=== PATIENT | female | born 1945 | race Caucasian/White ===

== ENCOUNTER 2016-05-29 18:41 | Emergency (ER) | payer MEDICARE, MEDICAID ==
[~2016-05-29] VITALS: Ht 172.7 cm; Wt 77.1 kg
[~2016-05-29 18:41] MED LIST: A THRU Z SELEC1 EAC6 PO; ACYCLOVIR400 MG PO; ACYCLOVIR800 MG PO; ALAVERT10 M1 PO; AMOXICILLIN500 M2 PO; AMOXICILLIN500 MG PO; AMOXICILLIN875 MG PO; ARTHRITIS PAIN650 MG PO; ASPI-COR81 M1 PO; ASPIR-TRIN325 MG PO; ASPIRIN81 M1 PO; ATIVAN0.5 MG PO; ATORVASTATIN CA10 M1 PO; AUGMENTIN 875875 MG PO; AYR NASAL GEL22 M1 NAS; BACTRIM; BACTRIM 400 MG-1 TAB PO; CARVEDILOL6.25 MG PO; CIPRO250 MG PO; CIPRO500 MG PO; CLARITIN10 MG PO; COMBIVENT1 ARO IH; COREG12.5 MG PO; COREG6.25 MG PO; Carafate1 GM PO; Ciprofloxacin500 MG PO; DILTIAZEM CD240 MG PO; DILTIAZEM ER240 MG PO; FEROSUL325 MG PO; FERROUS SULFAT325 M1 PO; FLEXERIL10 MG PO; FLONASE 0.05% 121 EA NAS; FLUCONAZOLE100 MG PO; FUROSEMIDE40 MG PO; GABAPENTIN100 M2 PO; HEALTHY EYES; HYDR12.5C PO; HYDROCHLOROTHIAZIDE; INHALER; IRON; IRON325 M1 PO; IRON325 M2 PO; KRISTALOSE20 GM/PACK PO; LACTULOSE10 GM/151 PO; LACTULOSE20 GM/30 M PO; LASIX40 MG PO; LEVAQUIN250 M1 PO; LEVAQUIN500 M1 IV; LEVOFLOXACIN500 MG PO; LIPITOR10 MG PO; LISINOPRIL10 M1 PO; LISINOPRIL10 MG PO; LISINOPRIL40 MG PO; LISINOPRIL5 MG PO; LORATADINE; MACROBID100 M1 PO; MAG-OX 400400 MG PO; MAGNESIUM400 MG PO; MAGOX 400400 MG PO; MEDROL32 MG PO; METFORMIN ER500 MG PO; METFORMIN1000 MG PO; METFORMIN500 MG PO; MIRALAX POWDER17 G1 PO; MIRALAX17 GM PO; MIRALAX17 GM/DOSE PO; MONTELUKAST SOD10 MG PO; MULTIVITAMIN1 TA1 PO; Magnesium Oxid400 MG PO; NITROFURANTOIN100 M9 PO; OMEPRAZOLE D/R20 MG PO; OMEPRAZOLE20 M1 PO; OMEPRAZOLE40 MG PO; ONDANSETRON4 MG SL; ONGLYZA2.5 MG PO; PHENERGAN W/DM120 ML PO; PHENERGAN25 MG R; POLYETHYLENE; POLYETHYLENE GL1 P16 PO; POTASSIUM; PRAVACHOL40 MG PO; PREDNISONE20 MG PO; PROTONIX TR40 MG PO; PYRIDIUM100 MG PO; QUALITY CHOICE10 M3 PO; RANITIDINE HCL150 M1 PO; RITE AID BRANDS1 TA4 PO; ROBITUSSIN AC 110 ML PO; SENNA PLUS 50 M1 TA1 PO; SENNA-PLUS 50 M1 TA1 PO; SENNA8.6 MG PO; SIMVASTATIN40 MG PO; SINGULAIR10 M1 PO; SINGULAIR10 MG PO; SYMBICORT1 AE1 INH; Synthroid,Lev125 MCG PO; THE MEDICINE SH10 M1 PO; TRAD5TAB1 PO; VIBRAMYCIN100 MG PO; VITAMIN D-32000 UNIT PO; VITAMIN D2400 IU PO; VITAMIN D32000 IU PO; ZANTAC150 MG PO; ZESTRIL40 MG PO; ZITHROMAX Z PA250 MG PO; ZOFRAN ODT4 MG SL; ZOFRAN4 MG PO; ZYVOX600 MG PO; Zofran4 MG PO; [UNRECOGNIZED DRUG - CODE] SC; [UNRECOGNIZED DRUG - REMARK]
[2016-05-29] MEDS ORDERED: LEVOTHYROXIN0.125 M1 PO (18:51)
[2016-05-29 19:17] LABS: BASO % 0.4 % (0.0-1.0); EOS % 0.4 % (1.0-4.0); HEMATOCRIT 36.9 % (37.0-47.0); HEMOGLOBIN 12.5 g/dl (12.0-16.0); LYMPH # 1.2 10*3/uL (1.3-4.4); LYMPH % 22.2 % (27.0-41.0); MEAN CORPUSCULAR HGB 31.2 pg (27.0-31.0); MEAN CORPUSCULAR HGB CONC 33.9 g/dl (33.0-37.0); MEAN PLATELET VOLUME 9.4 fl (9.6-12.3); MONO # 0.6 10*3/uL (0.1-1.0); MONO % 11.3 % (3.0-9.0); NEUT # 3.4 10*3/uL (2.3-7.9); NEUT % 65.3 % (47.0-73.0); PLATELET COUNT AUTOMATED 116 10*3/uL (130-400); RED BLOOD COUNT 4.01 10*6/uL (4.10-5.10); RED CELL DISTRI WIDTH 12.5 % (0-14.5); WHITE BLOOD COUNT 5.2 10*3/uL (4.8-10.8)
[2016-05-29 19:32] LABS: ALBUMIN 3.6 gm/dl (3.1-4.5); BILIRUBIN, TOTAL 0.5 mg/dl (0.2-1.0); POTASSIUM 4.2 mmol/L (3.5-5.1); TOTAL PROTEIN 8.1 gm/dL (6.4-8.2)
== END 2016-05-29 19:45 | disposition home or self-care (01) ==
LOC: ED 18:41
PROVIDERS: Registered Nurse
DX: E11.65 Type 2 diabetes mellitus with hyperglycemia (principal); E11.22 Type 2 diabetes mellitus with diabetic chronic kidney disease; N18.6 End stage renal disease; Z99.2 Dependence on renal dialysis; Z88.4 Allergy status to anesthetic agent; Z79.899 Other long term (current) drug therapy; Z90.49 Acquired absence of other specified parts of digestive tract; Z79.4 Long term (current) use of insulin

== ENCOUNTER 2016-06-17 13:30 | Emergency (ER) | payer MEDICARE, MEDICAID ==
[~2016-06-17] VITALS: Ht 175.2 cm; Wt 88.5 kg
[~2016-06-17 13:30] MED LIST changes: +LEVOTHYROXIN0.125 M1 PO
[2016-06-17 14:07] LABS: BASO % 0.8 % (0.0-1.0); HEMATOCRIT 34.3 % (37.0-47.0); HEMOGLOBIN 11.6 g/dl (12.0-16.0); LYMPH # 1.2 10*3/uL (1.3-4.4); LYMPH % 31.4 % (27.0-41.0); MEAN CELL VOLUME 93.2 fl (81.0-99.0); MEAN CORPUSCULAR HGB 31.5 pg (27.0-31.0); MEAN CORPUSCULAR HGB CONC 33.8 g/dl (33.0-37.0); MEAN PLATELET VOLUME 9.2 fl (9.6-12.3); MONO # 0.4 10*3/uL (0.1-1.0); MONO % 11.3 % (3.0-9.0); NEUT # 2.1 10*3/uL (2.3-7.9); NEUT % 54.7 % (47.0-73.0); PLATELET COUNT AUTOMATED 119 10*3/uL (130-400); RED BLOOD COUNT 3.68 10*6/uL (4.10-5.10); RED CELL DISTRI WIDTH 12.7 % (0-14.5); WHITE BLOOD COUNT 3.9 10*3/uL (4.8-10.8)
[2016-06-17 14:24] LABS: ALBUMIN 3.2 gm/dl (3.1-4.5); BILIRUBIN, TOTAL 0.4 mg/dl (0.2-1.0); POTASSIUM 3.4 mmol/L (3.5-5.1); TOTAL PROTEIN 7.8 gm/dL (6.4-8.2)
[2016-06-17] MEDS ORDERED: MECLIZINE HCL25 M2 PO (14:32)
== END 2016-06-17 14:35 | disposition home or self-care (01) ==
LOC: ED 13:30
PROVIDERS: Nurse Practitioner Family
DX: S00.412A Abrasion of left ear, initial encounter (principal); R42 Dizziness and giddiness; R03.0 Elevated blood-pressure reading, without diagnosis of hypertension; E03.9 Hypothyroidism, unspecified; E78.5 Hyperlipidemia, unspecified; I12.0 Hypertensive chronic kidney disease with stage 5 chronic kidney disease or end stage renal disease; N18.6 End stage renal disease; Z99.2 Dependence on renal dialysis; E11.65 Type 2 diabetes mellitus with hyperglycemia; J44.9 Chronic obstructive pulmonary disease, unspecified; I50.9 Heart failure, unspecified; F41.9 Anxiety disorder, unspecified; M19.90 Unspecified osteoarthritis, unspecified site; Z90.49 Acquired absence of other specified parts of digestive tract; Z88.4 Allergy status to anesthetic agent; Z79.899 Other long term (current) drug therapy; X58.XXXA Exposure to other specified factors, initial encounter; Y93.89 Activity, other specified; Y92.9 Unspecified place or not applicable; Y99.9 Unspecified external cause status

== ENCOUNTER → 2016-06-20 | Outpatient (CLI) | payer MEDICARE, MEDICAID ==
[~2016-06-20] MED LIST changes: +MECLIZINE HCL25 M2 PO
== END | disposition home or self-care (01) ==
LOC: CARD 12:24
DX: I95.9 Hypotension, unspecified (principal)

== ENCOUNTER 2016-06-28 18:11 | Emergency (ER) | payer MEDICARE, MEDICAID ==
[~2016-06-28] VITALS: Wt 88.5 kg
== END 2016-06-28 19:34 | disposition home or self-care (01) ==
LOC: ED 18:11
DX: J43.9 Emphysema, unspecified (principal); I12.0 Hypertensive chronic kidney disease with stage 5 chronic kidney disease or end stage renal disease; N18.6 End stage renal disease; F41.9 Anxiety disorder, unspecified; M19.90 Unspecified osteoarthritis, unspecified site; I50.9 Heart failure, unspecified; K21.9 Gastro-esophageal reflux disease without esophagitis; E78.5 Hyperlipidemia, unspecified; E11.65 Type 2 diabetes mellitus with hyperglycemia; Z98.49 Cataract extraction status, unspecified eye; Z99.2 Dependence on renal dialysis; Z90.49 Acquired absence of other specified parts of digestive tract; Z79.899 Other long term (current) drug therapy; Z88.4 Allergy status to anesthetic agent

== ENCOUNTER 2016-06-30 15:47 | Inpatient (IN) | payer MEDICARE, MEDICAID ==
[~2016-06-30] VITALS: Ht 170.1 cm; Wt 90.0 kg
--- NOTE | ~2016-06-30 | CON ---
[place], [place] REPORT OF CONSULTATION NAME: RANDY MCBRIDE UNIT #: [id number] ROOM: 501 DOCTOR: STACY MADDOX MD BIRTHDATE: [birth year] DOS: 07/01/2016 NEPHROLOGY CONSULTATION REASON FOR CONSULTATION: Management of dialysis/patient known to you. HISTORY OF PRESENT ILLNESS: The patient is a 70-year-old female. She has a past medical history of end-stage renal disease. She is on dialysis Sunday, Sunday and Sunday 4 hours through left upper extremity AV fistula at the [facility] under the care of our practice of [facility]. She has a history of hypertension, diabetes as well. It seems she was admitted to the hospital for a COPD exacerbation. She has been started on therapy, appears to be stable. She actually was hoping she can go home. She was not requiring oxygen. Denies shortness of breath, chest pain, nausea or vomiting presently. It seems she did have her treatment yesterday on dialysis. She did not have any major complaints to me, but was somewhat of a poor historian. Apparently, she has been having issues with cough and chest congestion and running nose with weakness and shortness of breath prior to her admission to the hospital. ALLERGIES: Listed to general anesthetics. MEDICATIONS: Include Senokot, Neurontin, levothyroxine, Levaquin, insulin, albuterol nebs. PAST MEDICAL HISTORY: 1. End-stage renal disease, on hemodialysis. 2. Left upper extremity AV fistula. 3. Chronic obstructive pulmonary disease. 4. Anxiety. 5. Osteoarthritis. 6. Chronic back pain. 7. Bronchitis. 8. CHF. 9. Anemia. 10. Diabetes. 11. GERD. 12. Hypertension. 13. Cataracts extraction. 14. Cholecystectomy. FAMILY HISTORY: Negative for chronic kidney disease, Otherwise, noncontributory. SOCIAL HISTORY: No current tobacco, alcohol or illicit drugs. REVIEW OF SYSTEMS: As per HPI, otherwise a 10-point review of systems was reviewed and was negative. PHYSICAL EXAMINATION: [place], [place] REPORT OF CONSULTATION NAME: RANDY MCBRIDE UNIT #: [id number] ROOM: 501 DOCTOR: STACY MADDOX MD BIRTHDATE: [birth year] VITAL SIGNS: Temperature 98, pulse 97, respirations 18, blood pressure 100/46. GENERAL: She is awake, alert, resting comfortably, in no apparent distress. HEENT: Shows no JVD. Sclerae are anicteric. Mucous membranes are moist. Pharynx is clear. NECK: Supple. Trachea is midline. There is no neck lymphadenopathy. There is no thyromegaly. LUNGS: Diminished breath sounds, non-appreciated wheeze. There is no tactile fremitus. She is not using accessory muscles of respiration. HEART: Normal S1, S2. No rub, thrill or gallop. ABDOMEN: Soft and nontender. There is no organomegaly or rigidity. There is no rebound or guarding. There is no CVA tenderness. EXTREMITIES: Had no edema. There is no lower extremity lymphadenopathy. Distal pulses are 2+. SKIN: Showed no overt rash. There is no petechia or purpura. Skin temperature is warm. NEUROLOGIC: She is awake, alert. She is following commands. Cranial nerves intact. LABORATORY DATA: Hemoglobin 10.3, white count of 4.7, platelet count of 117. Sodium 138, potassium 3.6, CO2 of 32, calcium 8.6. Phosphorus 3.5, magnesium 1.6, albumin 3.0, BUN 20, creatinine 4.4. IMPRESSION: 1. End-stage renal disease, on hemodialysis Sunday, Sunday and Sunday for 4 hours through left upper extremity AV fistula. 2. Dyspnea with apparent chronic pulmonary disease exacerbation. 3. Anemia of chronic disease. 4. History of diabetes mellitus. 5. GERD. 6. Mild thrombocytopenia. 7. Chronic pain. PLAN: 1. We will continue dialysis as per her normal schedule. 2. Dose medications for end-stage renal disease. 3. We will give as needed, erythropoietin stimulating agents with dialysis. 4. Discontinue IV fluids. 5. Await plans per the primary service. Thanks for this consultation. We will follow with you. [place], [place] REPORT OF CONSULTATION NAME: RANDY MCBRIDE UNIT #: [id number] ROOM: [facility] DOCTOR: STACY MADDOX MD BIRTHDATE: [birth year] STACY MADDOX MD CM:CONSTR:REPORT OF CONSULTATION 1504 07/02/16 1315 interface
--- NOTE | ~2016-06-30 | PR ---
[place], [place] PROGRESS NOTE NAME: RANDY MCBRIDE UNIT #: [id number] ROOM: 501 DOCTOR: STACY MADDOX MD BIRTHDATE: [birth year] DOS: 07/02/2016 NEPHROLOGY FOLLOWUP NOTE SUBJECTIVE: The patient is resting comfortably. She is in no acute distress. She remains on IV fluids. No events were reported. PHYSICAL EXAMINATION: VITAL SIGNS: Showed temperature 98.5, pulse 79, respiratory rate 20, blood pressure 118/54. HEENT: Shows no JVD. LUNGS: Diminished breath sounds. HEART: Normal S1, S2. EXTREMITIES: Showed no edema. SKIN: Showed no rash. LABORATORY DATA: From July 01, she did have lactic acid that was noted to be 4.0. Hemoglobin 10.3, white count of 4.7, and platelets of 117. These labs were from . ASSESSMENT AND PLAN: 1. End-stage renal disease on hemodialysis Sunday, Sunday and Sunday for 4 hours through her left upper extremity AV fistula. The patient will have dialysis tomorrow as per schedule. 2. Would discontinue IV fluids. 3. Dyspnea with chronic obstructive pulmonary disease exacerbation. Continue care. 4. Mild lactic acidosis, would recheck this. 5. Anemia of chronic disease. We will give as needed erythropoietin stimulating agents with dialysis. 6. Mild thrombocytopenia. Continue to follow trends. 7. Diabetes mellitus. Continue insulin. STACY MADDOX MD CM:PNTRANS [id number] STACY MADDOX MD 07/03/16 0358 interface
--- NOTE | ~2016-06-30 | PR ---
[place], [place] PROGRESS NOTE NAME: RANDY MCBRIDE UNIT #: [id number] ROOM: 501 DOCTOR: DARCY GAMA MD BIRTHDATE: [birth year] DOS: SUBJECTIVE: The patient has been admitted to hospital with history of cough, chest congestion, runny nose and having difficulty in breathing and shortness of breath with some nausea. She is feeling much better today, she has few wheezing in the lungs, but her cough and congestion is much better than before and she is not feeling nauseated. No vomiting and eating very satisfactorily. Her lactic acid is 4, which is better than 4.9 of yesterday. Troponin level is normal. OBJECTIVE: VITAL SIGNS: Her blood pressure 118/43, pulse is 73, respirations 18, temperature 98.3. HEART: Regular. CHEST: Having few wheezing. No crepitation. ABDOMEN: Soft. Rest of examination is fairly good. DARCY GAMA MD CM:PNTRANS [id number] DARCY GAMA MD 07/02/16 2000 interface
--- NOTE | ~2016-06-30 | EKG ---
[place], [place] ELECTROCARDIOGRAM REPORT NAME: RANDY MCBRIDE UNIT #: [id number] ROOM: [facility] DOCTOR: ELANA KIMBROUGH MD BIRTHDATE: [birth year] DOS: 06/30/2016 DATE: 06/30/2016 TIME: 22:01. RATE AND RHYTHM: Sinus tachycardia at 100 beats per minute. AR interval 172 milliseconds, QRS duration 84 milliseconds, corrected QT interval 466 milliseconds, QRS axis 42. IMPRESSION: 1. Sinus tachycardia. 2. Low voltage in precordial leads and Q-wave is greater than 30 milliseconds in V2-V5, possible old anterior myocardial infarction. ADDENDUM Her R-wave progression was poor and we are going to check when her echo was done to look at the left ventricular function. The patient has end-stage renal disease and is on hemodialysis. ELANA KIMBROUGH MD CM:EKGRPT:ELECTROCARDIOGRAM REPORT [id number] ELANA KIMBROUGH MD
--- NOTE | ~2016-06-30 | WRIGHTHP ---
[place], [place] PATIENT HISTORY AND PHYSICAL EXAM [id number] UNIT #: [id number] ROOM: [facility] DOCTOR: DARCY GAMA MD BIRTHDATE: [birth year] DOS: 07/01/2016 HISTORY OF PRESENT ILLNESS: The patient who has been admitted to hospital yesterday evening with history of cough, chest congestion, runny nose and she was feeling also nauseated, weak and shortness of breath and she came to Emergency Department where on investigation was found to be having acute exacerbation of COPD with emphysema and needed to be admitted to the hospital. PAST MEDICAL HISTORY: The patient has a history of COPD with end-stage renal failure, history of anxiety, arthritis, back pain, recurring bronchitis, candidiasis of the mouth and esophagus, congestive heart failure, chronic anemia, past history of chronic kidney disease end-stage number 4, diabetes mellitus, dysphagia, edema of the lower limb and elevated blood pressure and GERD syndrome. ALLERGIES: THE PATIENT IS ALLERGIC TO ANESTHESIA. SOCIAL HISTORY: She does not drink, does not smoke, does not use any street drugs. SURGICAL HISTORY: The patient has surgical history of removing cataracts and cholecystectomy. FAMILY HISTORY: Mother of congestive heart failure. Father, the patient does not know the real problem, maybe he had chronic obstructive pulmonary disease. There is history of cancer, diabetes and coronary artery disease in the family. PHYSICAL EXAMINATION: GENERAL: The patient is conscious, alert and oriented. VITAL SIGNS: Her blood pressure 114/62, pulse 93, respirations 20, temperature 97.3, 5 feet 9 inches tall, weighing 195 pounds. HEENT: Having some congestion of nose and throat. Ears are normal. Trachea is center. NECK: Veins are not distended. HEART: Regular. No murmur or thrills. LUNGS: Showing few bilateral wheezing with increased expiration with few crepitation. ABDOMEN: Soft. Liver and spleen not palpable. No area of tenderness. No mass palpable. IMAGING STUDIES: Electrocardiogram showed normal sinus rhythm, low voltage EKG, poor R-wave progression. Chest x-ray showed normal chest x-ray, no pneumonic infiltration was seen, no change from the previous x-ray. LABORATORY DATA: CBC shows white count 6000, hemoglobin 12.3, hematocrit 36.4. Protime is 10.7. Lactic acid is 2.9, slightly higher than normal. Comprehensive metabolic profile showed glucose 250, BUN 11, creatinine 3.7, GFR 15, chloride 95, CO2 33, total protein 8.8, alkaline phosphatase 135. C-reactive protein 1.19 and myoglobin is 337. CK-MB and troponin levels are [place], [place] PATIENT HISTORY AND PHYSICAL EXAM NAME: RANDY MCBRIDE UNIT #: [id number] ROOM: [facility] DOCTOR: DARCY GAMA MD BIRTHDATE: [birth year] normal. Repeat troponin level is normal. Lactic acid today her base level is 3, which is high. DIAGNOSES: Acute exacerbation of chronic obstructive pulmonary disease with emphysema with difficulty in breathing, lactic acidosis, end-stage renal failure, hypothyroidism, chronic anemia, diabetes mellitus, hyperlipidemia, hypertension, GERD syndrome, and anxiety. PLAN OF TREATMENT: The patient will be admitted to the hospital. She will continue taking her home medication, receive aerosol treatment with albuterol every 4 hours and Zofran 4 mg IV p.r.n., levofloxacin every 8 hours, Bacliff 1 tablet q.6 hours p.r.n. DARCY GAMA MD CM:HISPHYS:PATIENT HISTORY AND PHYSICAL EXAMINATION 8 DARCY GAMA MD 07/01/1640 interface
[2016-06-30 16:17] VITALS: BP 119/57
[2016-06-30 16:57] LABS: BASO % 0.3 % (0.0-1.0); EOS % 0.3 % (1.0-4.0); HEMATOCRIT 36.4 % (37.0-47.0); HEMOGLOBIN 12.3 g/dl (12.0-16.0); IG # 0.1 10*3/uL (0.0-0.1); LYMPH # 0.7 10*3/uL (1.3-4.4); LYMPH % 11.9 % (27.0-41.0); MEAN CELL VOLUME 93.1 fl (81.0-99.0); MEAN CORPUSCULAR HGB 31.5 pg (27.0-31.0); MEAN CORPUSCULAR HGB CONC 33.8 g/dl (33.0-37.0); MEAN PLATELET VOLUME 8.5 fl (9.6-12.3); MONO # 0.6 10*3/uL (0.1-1.0); MONO % 9.5 % (3.0-9.0); NEUT # 4.6 10*3/uL (2.3-7.9); NEUT % 77.2 % (47.0-73.0); PLATELET COUNT AUTOMATED 133 10*3/uL (130-400); RED BLOOD COUNT 3.91 10*6/uL (4.10-5.10); RED CELL DISTRI WIDTH 13.8 % (0-14.5)
[2016-06-30 17:09] LABS: PROTHROMBIN TIME 10.7 SECONDS (9.0-12.4)
[2016-06-30 17:15] LABS: ALBUMIN 3.8 gm/dl (3.1-4.5); ALKALINE PHOSPHATASE 135 U/L (45-117); BILIRUBIN, TOTAL 0.7 mg/dl (0.2-1.0); BUN 11 mg/dl (7-24); C-REACTIVE PROTEIN 1.19 MG/DL (0-0.3); CARBON DIOXIDE 33 mmol/L (21-32); CHLORIDE 95 mmol/L (98-107); CKMB < 0.5 ng/ml (0.5-3.6); CPK 20 U/L (26-192); EST GLOM FILT AFRICAN AMERICAN 18 ml/min; GLUCOSE 250 mg/dL (65-99); MAGNESIUM 1.6 mg/dL (1.5-2.1); SGOT/AST 30 IU/L (3-35); SGPT/ALT 31 U/L (12-78); SODIUM 138 mmol/L (136-145); TOTAL PROTEIN 8.8 gm/dL (6.4-8.2); TROPONIN I < 0.015 ng/ml (<0.045)
[2016-06-30 18:54] LABS: LA>2 REFLEX 2 HR DRAW NOW
[2016-06-30 19:00] VITALS: BP 123/54
[2016-06-30 19:19] LABS: LA>2 RFLX FOLLOW UP AT 2 HRS 3.9 mmol/L (0.4-2.0)
[2016-06-30 20:00] VITALS: BP 118/75; BP 188/75
[2016-06-30 20:04] VITALS: BP 98/53
[2016-06-30 20:07] VITALS: BP 98/48
[2016-06-30 21:02] LABS: LA>2 REFLEX 4 HR DRAW NOW
[2016-07-01] VITALS: BP 114/62
[2016-07-01 06:43] LABS: BASO % 0.2 % (0.0-1.0); EOS % 0.4 % (1.0-4.0); HEMATOCRIT 31.2 % (37.0-47.0); HEMOGLOBIN 10.3 g/dl (12.0-16.0); LYMPH # 0.9 10*3/uL (1.3-4.4); LYMPH % 19.9 % (27.0-41.0); MEAN CELL VOLUME 95.4 fl (81.0-99.0); MEAN CORPUSCULAR HGB 31.5 pg (27.0-31.0); MEAN PLATELET VOLUME 8.9 fl (9.6-12.3); MONO # 0.7 10*3/uL (0.1-1.0); MONO % 13.9 % (3.0-9.0); NEUT % 64.7 % (47.0-73.0); PLATELET COUNT AUTOMATED 117 10*3/uL (130-400); RED BLOOD COUNT 3.27 10*6/uL (4.10-5.10); RED CELL DISTRI WIDTH 13.9 % (0-14.5); WHITE BLOOD COUNT 4.7 10*3/uL (4.8-10.8)
[2016-07-01 06:44] LABS: BILIRUBIN, TOTAL 0.5 mg/dl (0.2-1.0); MAGNESIUM 1.6 mg/dL (1.5-2.1); PHOSPHOROUS 3.5 mg/dL (2.5-4.9); POTASSIUM 3.6 mmol/L (3.5-5.1); TOTAL PROTEIN 7.2 gm/dL (6.4-8.2)
[2016-07-01 08:00] VITALS: BP 98/60
[2016-07-01 09:05] LABS: LA>2 REFLEX 2 HR DRAW NOW
[2016-07-01 09:20] LABS: LA>2 RFLX FOLLOW UP AT 2 HRS 4.9 mmol/L (0.4-2.0)
[2016-07-01 11:14] LABS: LA>2 REFLEX 4 HR DRAW NOW
[2016-07-01 12:00] VITALS: BP 100/46
[2016-07-01 16:00] VITALS: BP 130/50
[2016-07-01 20:00] VITALS: BP 113/44
[2016-07-02] VITALS: BP 128/44
[2016-07-02 08:00] VITALS: BP 118/43
[2016-07-02 12:00] VITALS: BP 119/54
[2016-07-02 16:00] VITALS: BP 120/51
[2016-07-02 20:00] VITALS: BP 116/71
[2016-07-02 20:58] LABS: BILIRUBIN NEGATIVE (NEGATIVE); BLOOD 1+ (NEGATIVE); CLARITY SL CLOUDY (CLEAR); COLOR YELLOW (YELLOW); GLUCOSE NEGATIVE (NEGATIVE); KETONE NEGATIVE (NEGATIVE); LEUKO ESTERASE 3+ (NEGATIVE); NITRITE NEGATIVE (NEGATIVE); PH 5.5 (5.0-9.0); PROTEIN 2+ (NEGATIVE); SPECIFIC GRAVITY <= 1.005 (1.005-1.030); UROBILINOGEN 0.2 E.U./dl (0.2-1.0)
[2016-07-02 21:06] LABS: BACTERIA 4+; URINE REFLEX COMMENT YES (NO)
[2016-07-03] VITALS: BP 109/41
[2016-07-03 08:00] VITALS: BP 111/40
[2016-07-03 12:00] VITALS: BP 126/54
[2016-07-03 20:00] VITALS: BP 148/61
[2016-07-04] VITALS: BP 112/59
[2016-07-04 08:00] VITALS: BP 110/52
[2016-07-04 12:00] VITALS: BP 126/50
[2016-07-04] MEDS ORDERED: LEVAQUIN500 M2 PO (13:00)
[2016-07-04] MEDS ORDERED: PROVENTIL0.09 MG/A1 INH (13:01)
[2016-07-04] MEDS ORDERED: PREDNISONE10 MG PO (13:01)
== END 2016-07-04 14:08 | disposition home or self-care (01) | DRG 871 ==
LOC: ED 15:47 → 5E 17:50 → EDHOLD 17:50 → 5E 19:14
PROVIDERS: Hospitalist; Nurse Practitioner Family
PROC: 5A1D00Z (ICD-10-PCS; principal; 2016-07-03)
DX: A41.9 Sepsis, unspecified organism (principal); J18.9 Pneumonia, unspecified organism; N18.6 End stage renal disease; I13.0 Hypertensive heart and chronic kidney disease with heart failure and stage 1 through stage 4 chronic kidney disease, or unspecified chronic kidney disease; I50.9 Heart failure, unspecified; E11.22 Type 2 diabetes mellitus with diabetic chronic kidney disease; D69.6 Thrombocytopenia, unspecified; J44.1 Chronic obstructive pulmonary disease with (acute) exacerbation; J44.0 Chronic obstructive pulmonary disease with (acute) lower respiratory infection; R65.20 Severe sepsis without septic shock; F41.9 Anxiety disorder, unspecified; M19.90 Unspecified osteoarthritis, unspecified site; K59.00 Constipation, unspecified; D63.8 Anemia in other chronic diseases classified elsewhere; G89.29 Other chronic pain; E03.9 Hypothyroidism, unspecified; E78.5 Hyperlipidemia, unspecified; K21.9 Gastro-esophageal reflux disease without esophagitis; Z88.8 Allergy status to other drugs, medicaments and biological substances; Z99.2 Dependence on renal dialysis; Z90.49 Acquired absence of other specified parts of digestive tract; Z79.899 Other long term (current) drug therapy; Z82.49 Family history of ischemic heart disease and other diseases of the circulatory system; Z80.8 Family history of malignant neoplasm of other organs or systems; Z83.3 Family history of diabetes mellitus; Z82.5 Family history of asthma and other chronic lower respiratory diseases

== ENCOUNTER → 2016-07-13 | Outpatient (CLI) | payer MEDICARE, MEDICAID ==
[~2016-07-13] MED LIST changes: +LEVAQUIN500 M2 PO; +Ondansetron4 MG PO; +PREDNISONE10 MG PO; +PROVENTIL0.09 MG/A1 INH
== END | disposition home or self-care (01) ==
LOC: RAD 10:07
DX: M25.862 Other specified joint disorders, left knee (principal)

== ENCOUNTER 2016-07-16 16:10 | Emergency (ER) | payer MEDICARE, MEDICAID ==
[~2016-07-16] VITALS: Ht 170.1 cm; Wt 88.5 kg
[~2016-07-16 16:10] MED LIST changes: -Ondansetron4 MG PO
[2016-07-16] MEDS ORDERED: SINGULAIR10 M1 PO (16:21)
[2016-07-16] MEDS ORDERED: Ondansetron4 MG PO (16:21)
== END 2016-07-16 17:06 | disposition home or self-care (01) ==
LOC: ED 16:10
DX: E11.65 Type 2 diabetes mellitus with hyperglycemia (principal); Z88.4 Allergy status to anesthetic agent; Z90.49 Acquired absence of other specified parts of digestive tract; Z79.899 Other long term (current) drug therapy

== ENCOUNTER 2016-07-28 14:19 | Emergency (ER) | payer MEDICARE, MEDICAID ==
[~2016-07-28] VITALS: Wt 88.5 kg
[~2016-07-28 14:19] MED LIST changes: +Ondansetron4 MG PO
[2016-07-28 15:07] LABS: BASO % 0.1 % (0.0-1.0); EOS # 0.1 10*3/uL (0.0-0.4); EOS % 0.6 % (1.0-4.0); HEMATOCRIT 35.3 % (37.0-47.0); IG # 0.1 10*3/uL (0.0-0.1); LYMPH % 11.5 % (27.0-41.0); MEAN CELL VOLUME 93.9 fl (81.0-99.0); MEAN CORPUSCULAR HGB 31.9 pg (27.0-31.0); MEAN PLATELET VOLUME 8.9 fl (9.6-12.3); MONO # 0.7 10*3/uL (0.1-1.0); MONO % 8.1 % (3.0-9.0); NEUT # 6.6 10*3/uL (2.3-7.9); NEUT % 78.6 % (47.0-73.0); PLATELET COUNT AUTOMATED 154 10*3/uL (130-400); RED BLOOD COUNT 3.76 10*6/uL (4.10-5.10); RED CELL DISTRI WIDTH 14.2 % (0-14.5); WHITE BLOOD COUNT 8.4 10*3/uL (4.8-10.8)
[2016-07-28 15:22] LABS: ALBUMIN 3.6 gm/dl (3.1-4.5); ALKALINE PHOSPHATASE 139 U/L (45-117); BUN 9 mg/dl (7-24); CARBON DIOXIDE 32 mmol/L (21-32); CHLORIDE 92 mmol/L (98-107); EST GLOM FILT AFRICAN AMERICAN 18 ml/min; GLUCOSE 173 mg/dL (65-99); POTASSIUM 4.2 mmol/L (3.5-5.1); SGOT/AST 40 IU/L (3-35); SODIUM 137 mmol/L (136-145); TOTAL PROTEIN 8.7 gm/dL (6.4-8.2)
[2016-07-28 15:23] LABS: PROTHROMBIN TIME 10.6 SECONDS (9.0-12.4)
[2016-07-28 15:27] LABS: SGPT/ALT 37 U/L (12-78); TROPONIN I < 0.015 ng/ml (<0.045)
[2016-07-28] MEDS ORDERED: ZOFRAN4 MG PO (15:59)
[2016-07-28 17:04] LABS: LA>2 REFLEX 2 HR DRAW NOW
== END 2016-07-28 16:02 | disposition home or self-care (01) ==
LOC: ED 14:19
PROVIDERS: Nurse Practitioner Family
DX: I13.0 Hypertensive heart and chronic kidney disease with heart failure and stage 1 through stage 4 chronic kidney disease, or unspecified chronic kidney disease (principal); N18.4 Chronic kidney disease, stage 4 (severe); I50.20 Unspecified systolic (congestive) heart failure; R11.0 Nausea; M19.90 Unspecified osteoarthritis, unspecified site; J44.9 Chronic obstructive pulmonary disease, unspecified; K21.9 Gastro-esophageal reflux disease without esophagitis; E78.5 Hyperlipidemia, unspecified; E03.9 Hypothyroidism, unspecified; Z99.2 Dependence on renal dialysis; Z90.49 Acquired absence of other specified parts of digestive tract; Z79.899 Other long term (current) drug therapy; Z88.4 Allergy status to anesthetic agent

== ENCOUNTER 2016-08-18 19:53 | Emergency (ER) | payer MEDICARE, MEDICAID ==
[~2016-08-18] VITALS: Ht 170.1 cm; Wt 86.2 kg
== END 2016-08-18 20:26 | disposition home or self-care (01) ==
LOC: ED 19:53
DX: Z48.00 Encounter for change or removal of nonsurgical wound dressing (principal); N18.6 End stage renal disease; Z90.49 Acquired absence of other specified parts of digestive tract; Z98.890 Other specified postprocedural states; Z79.899 Other long term (current) drug therapy; Z88.4 Allergy status to anesthetic agent; Z99.2 Dependence on renal dialysis

== ENCOUNTER 2016-10-08 23:50 | Inpatient (IN) | payer MEDICARE, MEDICAID ==
[~2016-10-08] VITALS: Ht 170.1 cm; Wt 91.8 kg
--- NOTE | ~2016-10-08 | PR ---
[place], [place] PROGRESS NOTE NAME: RANDY MCBRIDE UNIT #: [id number] ROOM: 407 DOCTOR: SLOAN GATICA MD BIRTHDATE: [birth year] DOS: 10/09/2016 SUBJECTIVE: The patient is very well known to me. The patient was seen by Dr. Li who was covering for me yesterday. Cardiac status appears to be stable. OBJECTIVE: VITAL SIGNS: Blood pressure is 120/60. HEENT: Unremarkable. REVIEW OF SYSTEMS: Six to eight systems reviewed. LUNGS: Diminished air entry. HEART: Sounds are regular. ABDOMEN: Soft. NEUROLOGIC: Stable. LABORATORY DATA: Hemoglobin 11.4, hematocrit 33.9. Cardiac enzymes have been negative. IMPRESSION: The patient with atherosclerotic heart disease with renal failure and dialysis. PLAN: Continue the present care. We will try to get an echocardiogram if it is not done in 6 months. Monitor the heart rate and blood pressure very closely. Continue the medical management as ordered and we will follow up. EKG is normal. SLOAN GATICA MD CM:PNVENKAT [id number] SLOAN GATICA MD 10/10/16 0956 interface
--- NOTE | ~2016-10-08 | CON ---
[place], [place] REPORT OF CONSULTATION [id number] UNIT #: [id number] ROOM: 407 DOCTOR: RAMAN SALOMON MD BIRTHDATE: [birth year] DOS: 10/09/2016 HISTORY OF PRESENT ILLNESS: This is a 70-year-old -[place] woman with a history of essential hypertension, hypothyroidism, end-stage renal disease and has been undergoing peritoneal dialysis for the last couple of years. She has had low blood pressure at that time as well, chronic anemia and has never had a heart attack. She had an echocardiogram a couple of times last year, which demonstrated normal LV systolic function and no obvious valvular abnormalities. She was admitted to the hospital through the Emergency Department because of an episode of chest pain that was over the anterolateral aspect of the right side of the chest. It was sharp, but went away within a minute or so. After hospital admission, she underwent hemodialysis when she had these sharp pains again located over the right shoulder area that went to the lateral side of the chest, again lasting for a few seconds to a minute or two. She had no anterior chest pressure or heaviness. There was accompanied sweating, nausea or breathing difficulty. She did not have any loss of consciousness, no swelling in the legs. She has had no orthopnea. She does not smoke nor does she drink alcoholic beverages. HOME MEDICATIONS: Include Proventil HFA, Symbicort, gabapentin 100 b.i.d., loratadine 10 mg daily, Singulair 10 mg daily, Zofran 4 mg p.r.n. and some Senokot. PHYSICAL EXAMINATION: GENERAL: The patient is moderately obese, very pleasant, alert lady. Her complexion appears fine and there is no thyromegaly or finger clubbing. VITAL SIGNS: Pulse is regular at 84 beats per minute, blood pressure 129/43. NECK: JVP is normal. AJR is negative. There is no carotid bruit. HEART: There is no cardiomegaly. Cardiac auscultation revealed no murmurs or rubs. EXTREMITIES: She had no edema at all in the lower extremities. CHEST: Clear to percussion and auscultation with good breath sounds. ABDOMEN: Not examined. LABORATORY DATA: An ECG showed normal sinus rhythm and a normal pattern. Troponin levels were less than 0.05. IMPRESSION: This patient had very atypical myocardial ischemia. This is most likely a muscular pain and no further workup is necessary. From cardiac standpoint, she may be discharged home. The patient normally sees Dr. Singh with whom she will follow up as necessary. [place], [place] REPORT OF CONSULTATION NAME: RANDY MCBRIDE UNIT #: [id number] ROOM: 407 DOCTOR: RAMAN SALOMON MD BIRTHDATE: [birth year] RAMAN SALOMON MD CM:CONSTR:REPORT OF CONSULTATION 1659 10/09/16 2257 interface SLOAN SINGH MD
--- NOTE | ~2016-10-08 | DS ---
[place], [place] DISCHARGE SUMMARY NAME: RANDY MCBRIDE UNIT #: [id number] ROOM: 407 DOCTOR: DARCY GAMA MD BIRTHDATE: [birth year] DOS: 10/10/2016 The patient was admitted to the hospital on 10/09/2016 with chest pain. This chest pain is not related to her heart. It is not cardiac in origin. HOSPITAL COURSE: The patient has been seen by Dr. Li of Cardiology, and his opinion is that there is no evidence of any heart problem and the patient can be discharged home. There were no changes in the EKG and there was no evidence of an elevated troponin or CK-MB level and the patient will continue getting her home medications that she was taking before. There are no new medications. She will continue taking dialysis and she will be followed up in the office next week. For details, please refer to history and physical examination and consultation per Dr. Li. DARCY GAMA MD CM:ADALBERTO [id number] DARCY GAMA MD 10/10/16 1108 interface
--- NOTE | ~2016-10-08 | EKG ---
[place], [place] ELECTROCARDIOGRAM REPORT NAME: RANDY MCBRIDE UNIT #: [id number] ROOM: 407 DOCTOR: RAMAN SALOMON MD BIRTHDATE: [birth year] DOS: 10/09/2016 TIME: 1756 hours. Normal sinus rhythm at 94 beats per minute. Low voltage ECG. No previous tracing is available for comparison. RAMAN SALOMON MD CM:EKGRPT:ELECTROCARDIOGRAM REPORT [id number] 1857 RAMAN SALOMON MD
--- NOTE | ~2016-10-08 | WRIGHTHP ---
[place], [place] PATIENT HISTORY AND PHYSICAL EXAM NAME: RANDY MCBRIDE [facility] #: [id number] UNIT #: [id number] ROOM: 407 DOCTOR: DARCY GAMA MD BIRTHDATE: [birth year] DOS: 10/09/2016 HISTORY OF PRESENT ILLNESS: The patient has been admitted to the hospital with the chest pain, which she started having at home. No difficulty breathing, no nausea, no vomiting, no diaphoresis. She came to the Emergency Department from where she is admitted to hospital. At present, the patient is denying any chest pain. The patient is having a history of ASHD, congestive heart failure, chronic anemia, chronic hypotension, chronic renal failure, chronic sinusitis; chronic kidney failure, on dialysis; constipation, COPD, diabetes mellitus. PAST MEDICAL HISTORY: The patient has history of congestive heart failure, chronic anemia, chronic hypotension, chronic renal failure, chronic sinusitis; end-stage renal disease, on hemodialysis; ASHD, hypertension, hyperglycemia, hypothyroidism. PAST SURGICAL HISTORY: She has a history of cataract surgery, cholecystectomy and fistula placement. SOCIAL HISTORY: The patient does not drink, does not smoke. FAMILY HISTORY: Her mother is diseased, cause congestive heart failure. Father is of COPD, history of cancer, diabetes, coronary heart disease in the family. PHYSICAL EXAMINATION: GENERAL: The patient is conscious, alert and oriented, does not appear in any distress. VITAL SIGNS: She is 5 feet 7 inches tall, weighing 200 pounds, body mass is 31.8, blood pressure is 124/53, pulse 80, respirations 20, temperature 98.1. HEENT: Her ENT examination unremarkable. No glandular enlargement. NECK: Trachea is center. Neck veins are not distended. HEART: Regular, no murmur or thrills. LUNGS: Clear. No creps or rhonchi. ABDOMEN: Soft. Liver and spleen not palpable. No area of tenderness. No mass palpable. NEUROLOGIC: No neurological deficit observed. LABORATORY DATA: CBC showed white count 6900, hemoglobin 11.4, hematocrit 33.9 indicating chronic anemia of renal disease. Comprehensive metabolic profile showed sugar 150, BUN 31, creatinine 6.41, GFR 6 indicating chronic renal disease. Sodium is 129, chloride is 91, calcium 8.1, alkaline phosphatase 141. Troponin level is less than 0.015, that is normal. DIAGNOSIS: Chest pain, to see if she has got any evidence of myocardial infarction with chronic anemia and with atherosclerotic heart disease, hypertension, history of congestive heart failure, end-stage renal failure, on dialysis; hypothyroidism, diabetes mellitus, gastroesophageal reflux disease syndrome and osteoarthritis. PLAN OF TREATMENT: We will do serial EKG and isoenzymes to see if there is any [place], [place] PATIENT HISTORY AND PHYSICAL EXAM [id number] UNIT #: [id number] ROOM: [facility] DOCTOR: DARCY GAMA MD BIRTHDATE: [birth year] evidence of myocardial infarction and the patient will continue doing her hemodialysis as suggested by the car distributor and she will continue taking her medication as before. DARCY GAMA MD CM:HISPHYS:PATIENT HISTORY AND PHYSICAL EXAMINATION 1200 [id number] DARCY GAMA MD 10/09/16 1529 interface
--- NOTE | ~2016-10-08 | EKG ---
[place], [place] ELECTROCARDIOGRAM REPORT NAME: RANDY MCBRIDE UNIT #: [id number] ROOM: 407 DOCTOR: RAMAN SALOMON MD BIRTHDATE: [birth year] DOS: 10/09/2016 TIME: 0033 hours. Normal sinus rhythm at 85 beats per minute. Low voltage ECG. No evidence of ischemia or infraction. No previous tracing is available for comparison. RAMAN SALOMON MD CM:EKGRPT:ELECTROCARDIOGRAM REPORT 1812 47 RAMAN SALOMON MD
[2016-10-08 23:57] VITALS: BP 143/63
[2016-10-09] VITALS (8 sets, daily range): BP systolic 123–139; BP diastolic 43–54
[2016-10-09 00:25] LABS: BASO % 0.4 % (0.0-1.0); EOS # 0.1 10*3/uL (0.0-0.4); EOS % 0.9 % (1.0-4.0); HEMATOCRIT 33.9 % (37.0-47.0); HEMOGLOBIN 11.4 g/dl (12.0-16.0); LYMPH # 1.3 10*3/uL (1.3-4.4); MEAN CELL VOLUME 93.6 fl (81.0-99.0); MEAN CORPUSCULAR HGB 31.5 pg (27.0-31.0); MEAN CORPUSCULAR HGB CONC 33.6 g/dl (33.0-37.0); MEAN PLATELET VOLUME 9.1 fl (9.6-12.3); MONO # 0.5 10*3/uL (0.1-1.0); MONO % 7.6 % (3.0-9.0); NEUT % 72.4 % (47.0-73.0); PLATELET COUNT AUTOMATED 102 10*3/uL (130-400); RED BLOOD COUNT 3.62 10*6/uL (4.10-5.10); WHITE BLOOD COUNT 6.9 10*3/uL (4.8-10.8)
[2016-10-09 00:49] LABS: ALBUMIN 3.1 gm/dl (3.1-4.5); ALKALINE PHOSPHATASE 141 U/L (45-117); BUN 31 mg/dl (7-24); CHLORIDE 91 mmol/L (98-107); CREATININE 6.41 mg/dL (0.55-1.02); MAGNESIUM 1.8 mg/dL (1.5-2.1); POTASSIUM 3.7 mmol/L (3.5-5.1); SGOT/AST 23 IU/L (3-35); SGPT/ALT 20 U/L (12-78); SODIUM 129 mmol/L (136-145); TOTAL PROTEIN 7.3 gm/dL (6.4-8.2)
[2016-10-09 00:50] LABS: TROPONIN I < 0.015 ng/ml (<0.045)
[2016-10-09 00:52] LABS: ACT PARTIAL THROMBO TIME 27.9 SECONDS (20.8-31.5)
[2016-10-09 06:33] LABS: CKMB < 0.5 ng/ml (0.5-3.6); CPK 30 U/L (26-192); LDH 237 U/L (84-246); TROPONIN I < 0.015 ng/ml (<0.045)
[2016-10-09 12:09] LABS: CPK 23 U/L (26-192); LDH 212 U/L (84-246)
[2016-10-09 12:16] LABS: CKMB < 0.5 ng/ml (0.5-3.6); TROPONIN I < 0.015 ng/ml (<0.045)
[2016-10-10] VITALS: BP 122/53
[2016-10-10 08:00] VITALS: BP 109/70
== END 2016-10-10 10:13 | disposition home or self-care (01) | DRG 313 ==
LOC: ED 23:50 → 4E 10-09 01:01 → EDHOLD 10-09 01:01 → 4E 10-09 01:15
PROVIDERS: Student in an Organized Health Care Education/Training Program; ADMIT Internal Medicine
PROC: 5A1D00Z (ICD-10-PCS; principal; 2016-10-09)
DX: R07.89 Other chest pain (principal); I25.10 Atherosclerotic heart disease of native coronary artery without angina pectoris; I13.2 Hypertensive heart and chronic kidney disease with heart failure and with stage 5 chronic kidney disease, or end stage renal disease; I95.89 Other hypotension; N18.6 End stage renal disease; F41.9 Anxiety disorder, unspecified; M19.90 Unspecified osteoarthritis, unspecified site; I50.9 Heart failure, unspecified; D64.9 Anemia, unspecified; J32.9 Chronic sinusitis, unspecified; J44.9 Chronic obstructive pulmonary disease, unspecified; E11.22 Type 2 diabetes mellitus with diabetic chronic kidney disease; K21.9 Gastro-esophageal reflux disease without esophagitis; E78.5 Hyperlipidemia, unspecified; E03.9 Hypothyroidism, unspecified; I25.9 Chronic ischemic heart disease, unspecified; Z99.2 Dependence on renal dialysis; Z88.4 Allergy status to anesthetic agent; Z90.49 Acquired absence of other specified parts of digestive tract; Z98.49 Cataract extraction status, unspecified eye; Z82.49 Family history of ischemic heart disease and other diseases of the circulatory system; Z80.9 Family history of malignant neoplasm, unspecified; Z83.3 Family history of diabetes mellitus; Z82.5 Family history of asthma and other chronic lower respiratory diseases; Z87.01 Personal history of pneumonia (recurrent)

== ENCOUNTER 2016-10-27 17:38 | Emergency (ER) | payer MEDICARE, MEDICAID ==
[~2016-10-27] VITALS: Ht 167.6 cm; Wt 88.0 kg
[2016-10-27 18:38] LABS: BASO % 0.3 % (0.0-1.0); EOS # 0.1 10*3/uL (0.0-0.4); EOS % 0.6 % (1.0-4.0); HEMATOCRIT 36.5 % (37.0-47.0); HEMOGLOBIN 12.4 g/dl (12.0-16.0); LYMPH # 1.1 10*3/uL (1.3-4.4); LYMPH % 12.1 % (27.0-41.0); MEAN CELL VOLUME 92.4 fl (81.0-99.0); MEAN CORPUSCULAR HGB 31.4 pg (27.0-31.0); MEAN PLATELET VOLUME 8.7 fl (9.6-12.3); MONO # 0.6 10*3/uL (0.1-1.0); MONO % 7.3 % (3.0-9.0); NEUT # 6.9 10*3/uL (2.3-7.9); NEUT % 79.2 % (47.0-73.0); PLATELET COUNT AUTOMATED 115 10*3/uL (130-400); RED BLOOD COUNT 3.95 10*6/uL (4.10-5.10); RED CELL DISTRI WIDTH 14.1 % (0-14.5); WHITE BLOOD COUNT 8.7 10*3/uL (4.8-10.8)
[2016-10-27 18:47] LABS: ACT PARTIAL THROMBO TIME 30.1 SECONDS (20.8-31.5)
[2016-10-27 18:53] LABS: ALBUMIN 3.3 gm/dl (3.1-4.5); ALKALINE PHOSPHATASE 152 U/L (45-117); BUN 12 mg/dl (7-24); CHLORIDE 93 mmol/L (98-107); CPK 17 U/L (26-192); CREATININE 3.61 mg/dL (0.55-1.02); LIPASE 274 U/L (73-393); POTASSIUM 3.5 mmol/L (3.5-5.1); SGOT/AST 28 IU/L (3-35); SGPT/ALT 26 U/L (12-78); SODIUM 132 mmol/L (136-145); TOTAL PROTEIN 8.2 gm/dL (6.4-8.2)
[2016-10-27 18:55] LABS: CKMB < 0.5 ng/ml (0.5-3.6)
[2016-10-27 18:56] LABS: TROPONIN I < 0.015 ng/ml (<0.045)
== END 2016-10-27 21:31 | disposition home or self-care (01) ==
LOC: ED 17:38
PROVIDERS: Emergency Medicine
DX: E11.65 Type 2 diabetes mellitus with hyperglycemia (principal); K21.9 Gastro-esophageal reflux disease without esophagitis; E03.9 Hypothyroidism, unspecified; M19.90 Unspecified osteoarthritis, unspecified site; I13.2 Hypertensive heart and chronic kidney disease with heart failure and with stage 5 chronic kidney disease, or end stage renal disease; E11.22 Type 2 diabetes mellitus with diabetic chronic kidney disease; N18.6 End stage renal disease; I50.9 Heart failure, unspecified; Z88.4 Allergy status to anesthetic agent; Z79.899 Other long term (current) drug therapy; Z90.49 Acquired absence of other specified parts of digestive tract

== ENCOUNTER 2016-11-27 07:00 | Inpatient (IN) | payer MEDICARE, MEDICAID ==
[~2016-11-27] VITALS: Ht 175.2 cm; Wt 90.7 kg
--- NOTE | ~2016-11-27 | PR ---
[place], [place] PROGRESS NOTE [id number] #: [id number] ROOM: 503 DOCTOR: JAMES HADDAD MD BIRTHDATE: [birth year] DOS: SUBJECTIVE: The patient is doing fine without any complaints. She still has a cough, but her nausea and emesis seem to have subsided and she was able to eat some breakfast this morning. OBJECTIVE: VITAL SIGNS: Graphic trend shows blood pressure 109/48, pulse of 86, respirations 20, temperature 98.7. LUNGS: Clear. HEART: Regular. ABDOMEN: Obese, soft. EXTREMITIES: Without any edema. DIAGNOSTIC STUDIES: CT of the chest shows an airspace density in the left upper lobe and the right upper lobe, suggesting bilateral pneumonia with small right-sided pleural effusion. ASSESSMENT AND PLAN: 1. The patient who presents with high-grade fever, cough, elevated white cell count, most likely from underlying bilateral pneumonia with effusion. The patient is on IV antibiotics. 2. End-stage renal failure, on dialysis. Appreciate Dr. Ruby's input. 3. Type 2 diabetes mellitus. Blood sugars will need to be ordered. JAMES HADDAD MD CM:LINH [id number] JAMES HADDAD MD 11/28/16 1150 interface
--- NOTE | ~2016-11-27 | PR ---
[place], [place] PROGRESS NOTE NAME: RANDY MCBRIDE [facility] #: [id number] UNIT #: [id number] ROOM: 503 DOCTOR: JAMES HADDAD MD BIRTHDATE: [birth year] DOS: 11/30/2016 DIAGNOSES: 1. Bilateral upper lobe pneumonia, which is resolved. 2. Right-sided pleural effusion with a small right middle lobe pneumonia, which is improving. 3. End-stage renal failure, on dialysis. 4. Benign hypertension. 5. Type 2 diabetes mellitus, insulin-dependent. 6. Hypothyroidism. MEDICATIONS: Ceftin 250 mg twice a day for 5 days, senna 1 tablet daily, Symbicort 160 two puffs twice a day, loratadine 10 daily, gabapentin 100 at bedtime, Proventil 2 puffs q.i.d. p.r.n., Singulair 10 daily, omeprazole 20 daily, Tradjenta 5 mg daily, folic acid 1 mg daily, levothyroxine 125 mcg daily. The patient is 71 years old and not known to me. The patient of Dr. Her comes in with complaints of difficulty breathing. After being evaluated in the ER, she was admitted with fever. Chest x-ray was negative, but the patient also had an elevated white cell count and had a very productive cough and so a CT of the chest will be done to rule out pneumonia causing underlying sepsis. A CT did show right pleural effusion, small right middle lobe pneumonia, bilateral upper lobe pneumonia. IV antibiotics were given. Dr. Ruby was consulted for dialysis. White cell count has normalized. Cough has subsided and the repeat chest x-ray shows complete clearing of the upper lobe pneumonia and the right middle lobe pneumonia, which is improving. The patient's sputum culture shows normal mari. The plan therefore is to discharge her to home today. Follow up with Dr. Her as an outpatient. Antibiotic prescription was given today. Resting saturations are normal. Oxygen saturations are normal, but an exercise oximetry will be done to see whether she would require oxygen supplementation for home. JAMES HADDAD MD CM:PNTRANS [id number] JAMES HADDAD MD 11/30/162140 interface
--- NOTE | ~2016-11-27 | PR ---
[place], [place] PROGRESS NOTE [id number] #: [id number] ROOM: 503 DOCTOR: JAMES HADDAD MD BIRTHDATE: [birth year] DOS: SUBJECTIVE: The patient is doing fine without any complaints this morning. Her cough is better. She does not appear to be short of breath. PHYSICAL EXAMINATION: VITAL SIGNS: Blood pressure is 122/55, pulse of 93, respirations 20, temperature 97.5. LUNGS: Clear. HEART: Regular. ABDOMEN: Obese, soft, nontender. EXTREMITIES: Without any edema. LABORATORY DATA: Sputum culture shows normal mari. Chest x-ray shows COPD, chronic interstitial lung disease, improving right middle lobe pneumonia and pneumonia in the upper lobes have been cleared. ASSESSMENT AND PLAN: 1. Bilateral upper lobe pneumonia with middle lobe, right-sided pneumonia, possible gram negative, but the sputum cultures so far are negative and chest x-ray is clearing. The patient is also clinically better, so the plan is to discharge her to home today. Exercise oximetry to be done to make sure she does not need any oxygen supplementation. 2. End-stage renal failure, on dialysis. 3. Sepsis with negative blood cultures. The patient to follow with Dr. Her as an outpatient. JAMES HADDAD MD CM:PNTRANS [id number] JAMES HADDAD MD 11/30/162129 interface
--- NOTE | ~2016-11-27 | PR ---
[place], [place] PROGRESS NOTE [id number] #: [id number] ROOM: 503 DOCTOR: JAMES HADDAD MD BIRTHDATE: [birth year] DOS: SUBJECTIVE: The patient does have a moist sounding cough, but seems to be better than when she got admitted. Cough is productive of scant amounts of brownish sputum. OBJECTIVE: VITAL SIGNS: Graphic trend shows a pressure of 147/64, pulse of 88, respirations 20 and temperature 99.4. LUNGS: Diminished breath sounds with poor air entry. HEART: Regular. ABDOMEN: Obese, soft. EXTREMITIES: Without any edema. LABORATORY DATA: Blood culture shows no bacterial growth. ASSESSMENT AND PLAN: 1. Bilateral pneumonia, upper lobe, possible gram-negative, on IV antibiotics. 2. End-stage renal failure, on dialysis, tolerating it. 3. Hypokalemia. Supplementation will be ordered. The patient to have repeat chest x-ray. If it shows clearing, the plan is to discharge her to home. JAMES HADDAD MD CM:PNTRANS [id number] JAMES HADDAD MD 11/29/16 1100 interface
--- NOTE | ~2016-11-27 | WRIGHTHP ---
[place], [place] PATIENT HISTORY AND PHYSICAL EXAM NAME: RANDY MCBRIDE [facility] #: [id number] UNIT #: [id number] ROOM: 503 DOCTOR: JAMES HADDAD MD BIRTHDATE: [birth year] DOS: 11/27/2016 HISTORY OF PRESENT ILLNESS: The patient is 71-year-old. The patient states that she has a cough which is ____ of scant amount of sputum. She called Dr. Her's office and got a prescription for Z-KURT. She has been taking it for 2 days. This morning she was not feeling good, so she did not go for dialysis, but she continued to get worse with high grade fevers, so she decided to come into the Emergency Room. This is one of the multiple admissions this patient has had. The last time she was admitted to the hospital was in September 2016 with complaints of chest pain. She does complain of fever, but does not have any abdominal pain, nausea, any emesis, not have any diarrhea. Cough is ____ and dry. PAST MEDICAL HISTORY: Significant for: 1. Benign hypertension. 2. Type 2 diabetes mellitus, insulin-dependent. 3. Renal failure, end-stage, on dialysis. 4. Hypothyroidism. MEDICATIONS: She is on ProAir, Proventil inhaler, Symbicort, folic acid, gabapentin, levothyroxine, Tradjenta, loratadine, montelukast, omeprazole. SOCIAL HISTORY: Nonsmoker, does not use any alcohol. She lives with her boyfriend. PHYSICAL EXAMINATION: VITAL SIGNS: Blood pressure is 128/48, pulse of 100, respirations 20, temperature of 102.2. LUNGS: Diminished breath sounds. No wheezes, rales or rhonchi heard. CARDIOVASCULAR: Regular. ABDOMEN: Obese, soft, nontender. EXTREMITIES: Without any edema. ASSESSMENT AND PLAN: 1. Cough, elevated white cell count, high-grade fever with a right-sided pleural effusion, possible underlying pneumonia, gram negative. We will do a CT of the chest. IV antibiotics have been added. Blood cultures have been sent. 2. End-stage renal disease, on dialysis, to be continued. Dr. Mcdonald has been consulted. 3. Type 2 diabetes mellitus. Blood sugar is fairly controlled. [place], [place] PATIENT HISTORY AND PHYSICAL EXAM NAME: RANDY MCBRIDE UNIT #: [id number] ROOM: [facility] DOCTOR: JAMES HADDAD MD BIRTHDATE: [birth year] JAMES HADDAD MD CM:HISPHYS:PATIENT HISTORY AND PHYSICAL EXAMINATION 1611 1730 JAMES HDADAD MD 11/27/16 1729 interface
[~2016-11-27 07:00] MED LIST changes: +SYMB160 INH
[2016-11-27 07:16] VITALS: BP 148/67
[2016-11-27 07:50] LABS: BASO % 0.2 % (0.0-1.0); EOS % 0.3 % (1.0-4.0); HEMATOCRIT 30.1 % (37.0-47.0); HEMOGLOBIN 10.1 g/dl (12.0-16.0); LYMPH # 0.7 10*3/uL (1.3-4.4); LYMPH % 10.6 % (27.0-41.0); MEAN CELL VOLUME 94.7 fl (81.0-99.0); MEAN CORPUSCULAR HGB 31.8 pg (27.0-31.0); MEAN CORPUSCULAR HGB CONC 33.6 g/dl (33.0-37.0); MONO # 0.4 10*3/uL (0.1-1.0); NEUT # 5.1 10*3/uL (2.3-7.9); NEUT % 80.6 % (47.0-73.0); PLATELET COUNT AUTOMATED 117 10*3/uL (130-400); RED BLOOD COUNT 3.18 10*6/uL (4.10-5.10); WHITE BLOOD COUNT 6.3 10*3/uL (4.8-10.8)
--- NOTE | 2016-11-27 07:51 | NUR ---
PATIENT IS A DIALYSIS PATIENT. STATES APPOINTMENT THIS MORNING AT 0900.
[2016-11-27 08:08] LABS: ALBUMIN 2.7 gm/dl (3.1-4.5); CREATININE 7.08 mg/dL (0.55-1.02); MAGNESIUM 1.9 mg/dL (1.5-2.1); POTASSIUM 3.8 mmol/L (3.5-5.1)
[2016-11-27 09:05] VITALS: BP 133/70
--- NOTE | 2016-11-27 09:30 | NUR ---
FLAVIA RN AT BEDSIDE WITH PATIENT AT THIS TIME.
--- NOTE | 2016-11-27 09:35 | NUR ---
A 71, admitted to 5E, under the services of JAMES Barfield MD with a diagnosis of ELEVATED TROPONIN, CKD, FEVER. Chief complaint is NAUSEA/VOMITING . Patient arrived via ambulatory from ER. Monitor applied. Initial assessment completed. Vital signs taken and recorded. JAMES BARFIELD MD notified of admission to the unit. Orders received. See assessment for past medical history, medications and allergies. Patient and/or family oriented to unit. [facility] visitation policy reviewed. Clothing/patient valuable form completed. FLAVIA HUI
[2016-11-27 09:50] VITALS: BP 128/48
--- NOTE | 2016-11-27 09:55 | NUR ---
CALL PLACED TO DR HADDAD AT THIS TIME FOR ADM ORDERS, AWAITING CALL BACK.
[2016-11-27] MEDS ORDERED: TRAD5TAB1 PO (10:00)
[2016-11-27] MEDS ORDERED: PRILOSEC20 M1 PO (10:00)
[2016-11-27] MEDS ORDERED: NEPHRO-VITE TA0.8 MG PO (10:01)
[2016-11-27] MEDS ORDERED: SYNTHROID,LEV125 MCG PO (10:02)
--- NOTE | 2016-11-27 10:03 | NUR ---
MED RECONCILIATION COMPLETED VIA TELEPHONE WITH CITIZEN'S PHARMACIST.
--- NOTE | 2016-11-27 10:55 | NUR ---
TYLENOL GIVEN FOR FEVER OF 102.3. WILL MONTIOR FOR EFFECTIVENESS.
--- NOTE | 2016-11-27 11:01 | NUR ---
PT TO DIALYSIS AT THIS TIME.
--- NOTE | 2016-11-27 11:01 | NUR ---
SPOKE WITH SPRING AT DR SALAS'S OFFICE REGARDING NEW CONSULT.
--- NOTE | 2016-11-27 11:34 | NUR ---
[facility] CALLED, STATES DUE TO LOVENOX GIVEN TODAY THE RADIOLOGIST WASNTS TO HOLD OFF ON THORACENTESIS UNTIL TOMORROW.
[2016-11-27 16:00] VITALS: BP 162/72
--- NOTE | 2016-11-27 16:00 | NUR ---
PT BACK FROM DIALYSIS AT THIS TIME. REMOVED 3 KILO'S FROM PT.
--- NOTE | 2016-11-27 16:33 | NUR ---
PT DOWN FOR CT CHEST.
[2016-11-27 20:00] VITALS: BP 142/48
--- NOTE | 2016-11-27 20:00 | NUR ---
ASSUMED CARE OF PATIENT. ASSESSMENT COMPLETE. RESTING IN BED. DENIES FURTHER NEEDS AT THIS TIME. PT STATES SHE STILL PRODUCES SOME URINE, MADE AWARE OF NEED FOR URINE FOR CULTURE, HAT PLACED IN TOILET AT THIS TIME. CALL LIGHT IN REACH. WILL CONTINUE TO MONITOR.
--- NOTE | 2016-11-27 21:19 | NUR ---
MEDICATED WITH PRN TYLENOL FOR TEMP 102.8 WILL MONITOR FOR EFFECTIVENESS
[2016-11-28] VITALS: BP 109/48
--- NOTE | 2016-11-28 02:00 | NUR ---
SLEEPING. RESP EASY AND NONLABORED ON ROOM AIR. NO DISTRESS NOTED. CM INTACT. CALL LIGHT IN REACH. WILL CONTINUE TO MONITOR.
[2016-11-28 08:00] VITALS: BP 100/60
--- NOTE | 2016-11-28 08:00 | NUR ---
Digital Sales Manager in to talk to patient. Patient states lives at HOME with HER BOYFRIEND. There are 1 steps in the home. Physician: DR KIMBROUGH Pharmacy: [facility] Home health services: NONE Patient's level of ADLs: MINIMAL ASSIST Patient has working utilities: YES DME: HAS WALKER-USES [facility] Follow-up physician's appointment after d/c: PREFERS TO MAKE HER OWN APPT Does patient want to access PORTAL?: Discharge plan HOME. [facility] NIXON PT IS M-W-F DIALYSIS. USES [facility] FOR TRANSPORTATION. DENIES ANY DC NEEDS
[2016-11-28 12:00] VITALS: BP 110/43
[2016-11-28 16:00] VITALS: BP 136/58
--- NOTE | 2016-11-28 16:30 | NUR ---
SR. ALEJANDRO CALLED AND TOLD ABOUT PATIENT COLD SORE DEVELOPING ON LOWER LIP. ORDERED ACYCLOVIR CREAM 5% Q2H TILL SORE IS HEALED.
[2016-11-28 20:00] VITALS: BP 124/53
--- NOTE | 2016-11-28 20:00 | NUR ---
ASSUMED CARE OF PATIENT. ASSESSMENT COMPLETE. RESTING IN BED. DENIES FURTHER NEEDS AT THIS TIME. CALL LIGHT IN REACH. WILL CONTINUE TO MONITOR.
[2016-11-29] VITALS: BP 147/64
--- NOTE | 2016-11-29 02:00 | NUR ---
SLEEPING. RESP EASY AND NONLABORED ON ROOM AIR. NO DISTRESS NOTED. CM INTACT. CALL LIGHT IN REACH. WILL CONTINUE TO MONITOR.
[2016-11-29 08:00] VITALS: BP 130/58
[2016-11-29 10:00] LABS: BASO % 0.3 % (0.0-1.0); EOS % 0.7 % (1.0-4.0); HEMATOCRIT 29.1 % (37.0-47.0); HEMOGLOBIN 9.7 g/dl (12.0-16.0); LYMPH # 1.1 10*3/uL (1.3-4.4); LYMPH % 19.7 % (27.0-41.0); MEAN CELL VOLUME 93.6 fl (81.0-99.0); MEAN CORPUSCULAR HGB 31.2 pg (27.0-31.0); MEAN CORPUSCULAR HGB CONC 33.3 g/dl (33.0-37.0); MEAN PLATELET VOLUME 10.7 fl (9.6-12.3); MONO # 0.5 10*3/uL (0.1-1.0); MONO % 9.2 % (3.0-9.0); NEUT % 69.4 % (47.0-73.0); PLATELET COUNT AUTOMATED 112 10*3/uL (130-400); RED BLOOD COUNT 3.11 10*6/uL (4.10-5.10); RED CELL DISTRI WIDTH 14.5 % (0-14.5); WHITE BLOOD COUNT 5.8 10*3/uL (4.8-10.8)
[2016-11-29 10:11] LABS: ALBUMIN 2.5 gm/dl (3.1-4.5); CREATININE 6.95 mg/dL (0.55-1.02); POTASSIUM 3.1 mmol/L (3.5-5.1)
[2016-11-29 10:12] LABS: PHOSPHOROUS 4.3 mg/dL (2.5-4.9)
[2016-11-29 12:00] VITALS: BP 128/90
[2016-11-29 16:00] VITALS: BP 106/49
[2016-11-29 20:00] VITALS: BP 111/55
--- NOTE | 2016-11-29 20:30 | NUR ---
RESTING IN BED WITH NO DISTRESS NOTED. RESPIRATIONS EASY. LUNGS DIMINISHED WITH EXP WHEEZES. PULSE OX 96% RA. CLAIMS NON-PRODUCTIVE COUGH. CALL LIGHT WITHIN REACH. NO VOICED COMPLAINTS.
[2016-11-30] VITALS: BP 108/52
--- NOTE | 2016-11-30 | NUR ---
SLEEPING. NO DISTRESS NOTED. RESPIRATIONS EASY. VSS. CALL LIGHT WITHIN REACH
--- NOTE | 2016-11-30 03:00 | NUR ---
CONTINUES TO SLEEP WITH NO DISTRESS NOTED. RESPIRATIONS EASY. CALL LIGHT WITHIN REACH
--- NOTE | 2016-11-30 06:00 | NUR ---
SLEPT THROUGHOUT NIGHT WITH NO DISTRESS NOTED. RESPIRATIONS EASY. CALL LIGHT WITHIN REACH. NO VOICED COMPLAINTS THIS SHIFT
[2016-11-30 06:09] LABS: BASO % 0.2 % (0.0-1.0); EOS # 0.1 10*3/uL (0.0-0.4); EOS % 1.1 % (1.0-4.0); HEMATOCRIT 28.4 % (37.0-47.0); HEMOGLOBIN 9.6 g/dl (12.0-16.0); LYMPH % 22.4 % (27.0-41.0); MEAN CORPUSCULAR HGB 31.8 pg (27.0-31.0); MEAN CORPUSCULAR HGB CONC 33.8 g/dl (33.0-37.0); MEAN PLATELET VOLUME 9.6 fl (9.6-12.3); MONO # 0.4 10*3/uL (0.1-1.0); MONO % 9.3 % (3.0-9.0); NEUT # 2.9 10*3/uL (2.3-7.9); NEUT % 66.5 % (47.0-73.0); PLATELET COUNT AUTOMATED 102 10*3/uL (130-400); RED BLOOD COUNT 3.02 10*6/uL (4.10-5.10); RED CELL DISTRI WIDTH 14.5 % (0-14.5); WHITE BLOOD COUNT 4.4 10*3/uL (4.8-10.8)
[2016-11-30 06:24] LABS: CREATININE 4.46 mg/dL (0.55-1.02)
[2016-11-30 08:00] VITALS: BP 117/52
--- NOTE | 2016-11-30 08:20 | NUR ---
TYLENOL GIVEN PER PATIENT REQUEST FOR RIDE SIDED CHEST PAIN THAT WORSENS WITH COUGH RATING A 5/10.
--- NOTE | 2016-11-30 09:00 | NUR ---
TYLENOL EFFECTIVE PER PATIENT.
[2016-11-30 12:00] VITALS: BP 122/55
[2016-11-30] MEDS ORDERED: CEFUROXIME AXE250 MG PO (15:02)
--- NOTE | 2016-11-30 15:33 | NUR ---
DISCHARGED TO HOME IN CARE OF BOYFRIEND. INSTUCTIONS AND PERSCRIPTION REVIEWED WITH PT. PT STATES SHE HAS ALREADY RECEIVED FLU VACCINE THIS YEAR.
== END 2016-11-30 15:35 | disposition home or self-care (01) | DRG 871 ==
LOC: ED 07:00 → EDHOLD 08:55 → 5E 08:55
PROVIDERS: Emergency Medicine; Family Medicine; Internal Medicine Nephrology; ADMIT Internal Medicine
PROC: 5A1D70Z Performance of Urinary Filtration, Intermittent, Less than 6 Hours Per Day (ICD-10-PCS; principal; 2016-11-27)
PROC: 5A1D70Z Performance of Urinary Filtration, Intermittent, Less than 6 Hours Per Day (ICD-10-PCS; 2016-11-29)
DX: A41.9 Sepsis, unspecified organism (principal); J15.6 Pneumonia due to other Gram-negative bacteria; I13.2 Hypertensive heart and chronic kidney disease with heart failure and with stage 5 chronic kidney disease, or end stage renal disease; N18.6 End stage renal disease; E11.22 Type 2 diabetes mellitus with diabetic chronic kidney disease; I50.9 Heart failure, unspecified; E87.6 Hypokalemia; K52.9 Noninfective gastroenteritis and colitis, unspecified; D64.9 Anemia, unspecified; E83.39 Other disorders of phosphorus metabolism; F41.9 Anxiety disorder, unspecified; M19.90 Unspecified osteoarthritis, unspecified site; K21.9 Gastro-esophageal reflux disease without esophagitis; E78.5 Hyperlipidemia, unspecified; E03.9 Hypothyroidism, unspecified; J32.9 Chronic sinusitis, unspecified; Z79.899 Other long term (current) drug therapy; Z88.8 Allergy status to other drugs, medicaments and biological substances; Z87.01 Personal history of pneumonia (recurrent); Z90.49 Acquired absence of other specified parts of digestive tract; Z98.49 Cataract extraction status, unspecified eye; Z82.49 Family history of ischemic heart disease and other diseases of the circulatory system; Z83.3 Family history of diabetes mellitus; Z80.9 Family history of malignant neoplasm, unspecified; Z83.6 Family history of other diseases of the respiratory system; Z99.2 Dependence on renal dialysis

== ENCOUNTER → 2016-12-12 | Outpatient (CLI) | payer MEDICARE, MEDICAID ==
[~2016-12-12] MED LIST changes: +BACLOFEN20 M1 PO; +CEFUROXIME AXE250 MG PO; +NEPHRO-VITE TA0.8 MG PO; +PRILOSEC20 M1 PO; +SYNTHROID,LEV125 MCG PO
--- NOTE | 2016-12-12 08:30 | NUR ---
INFORMED CONSENT OBTAINED FOR [employer] NUCLEAR STRESS TEST WITH DR. KIMBROUGH. WITH PREPARING PT FOR STRESS TESTING SAW SEVERAL SMALL BROWN INSECTS ON BODY AND CLOTHING. INSECT COLLECTED AND TAKEN TO INFECTION CONTROL AND WAS IDENTIFIED A BEETLE. HAS NO BITES ON BODY. PRECAUTIONS TAKEN BY DOUBLE BAGGING BELONGINGS AND USING GOWNS AND GLOVES.
--- NOTE | 2016-12-12 10:00 | NUR ---
INFORMED CONSENT OBTAINED FOR LEXISCAN NUCLEAR STRESS TEST WITH DR. KIMBROUGH. RESTING EKG NSR WITH A RESTING HR OF 96 WITH BP OF 140/50. HAS PEAKED T WAVE AND POOR R WAVE PROGRESSION. RESTING EKG NSR WITH A RESTING HR OF 96 WITH BP OF 140/50. LUNGS WITH DIMINISHED BS WITH SPO2 OF 98% ON ROOM AIR. PT COMPLETED A 1:00 LEXISCAN PROTOCOL RECEIVING LEXISCAN 0.4 MG IV OVER 10 SECONDS. HAD NO CHEST PAIN OR ANY EKG CHANGES. DID C/O FEELING "DIZZY AND LIGHTHEADED" THAT WAS RELIEVED IN RECOVERY. HAD A PEAK HR OF 107 WITH BP OF 140/46. LAST RECOVERY HR OF 102 WITH BP OF 136/40. AWAITING SCANNING IN STABLE CONDITION.
== END | disposition home or self-care (01) ==
LOC: CARD 01:10
DX: Z01.818 Encounter for other preprocedural examination (principal); R06.02 Shortness of breath; R53.81 Other malaise

== ENCOUNTER 2016-12-17 14:18 | Inpatient (IN) | payer MEDICARE, MEDICAID ==
[~2016-12-17] VITALS: Ht 170.2 cm; Wt 86.3 kg
--- NOTE | ~2016-12-17 | EKG ---
[place], [place] ELECTROCARDIOGRAM REPORT NAME: RANDY MCBRIDE UNIT #: [id number] ROOM: 524 DOCTOR: ELANA KIMBROUGH MD BIRTHDATE: [birth year] DOS: RATE AND RHYTHM: Normal sinus rhythm at 98 beats per minute. WI interval is 160 milliseconds. QRS duration 93 milliseconds. Corrected QT interval 449 milliseconds. QRS axis 71. IMPRESSION: 1. Normal sinus rhythm. 2. Low voltage EKG in the precordial leads. 3. No old EKG to compare with. 4. Abnormal EKG. ELANA KIMBROUGH MD CM:EKGRPT:ELECTROCARDIOGRAM REPORT [id number] ELANA KIMBROUGH MD
--- NOTE | ~2016-12-17 | CON ---
[place], [place] REPORT OF CONSULTATION [facility]IDE [id number] UNIT #: [id number] ROOM: 524 DOCTOR: LITTLE ALEJANDRO MD BIRTHDATE: [birth year] DOS: 12/19/2016 ATTENDING PHYSICIAN: Dr. Drew Her HISTORY OF PRESENT ILLNESS: The patient is a 71-year-old female with: 1. End-stage kidney disease and getting hemodialysis every Sunday, Sunday and Sunday. 2. Generalized weakness and adult failure to thrive with mental confusion. 3. Pneumonia. 4. Chronic constipation. 5. Exacerbation of chronic obstructive pulmonary disease. 6. Type 2 diabetes mellitus. 7. Benign essential hypertension. 8. Hypothyroidism. 9. Anemia of chronic kidney disease. The patient is presently admitted to [facility] with increasing mental confusion, generalized weakness and difficulty with ambulation. The patient unable to provide much history. She says she is comfortable and has no complaints and she agrees with the fact that she goes for hemodialysis. The patient is presently admitted with a diagnosis of severe sepsis, mental confusion from metabolic encephalopathy and healthcare-associated pneumonia. The patient has end-stage kidney disease and remains on hemodialysis 3 times a week. REVIEW OF SYSTEMS: LUNGS: No increasing shortness of breath or wheezing. GASTROINTESTINAL: No nausea, vomiting, diarrhea or constipation. CARDIOVASCULAR: No chest pains or palpitations. SOCIAL HISTORY: The patient lives at home with her boyfriend, has no durable power of workers compensation defense attorney. HOME MEDICATIONS: The patient takes senna, Prilosec, Singulair, Tradjenta, Synthroid, hemodialysis, Symbicort, baclofen, DuoNeb. FAMILY HISTORY: Noncontributory. ALLERGIES: Known allergies to GENERAL ANESTHETICS. PHYSICAL EXAMINATION: GENERAL: Alert, oriented to place and person. She is a poor historian, generalized weakness. VITAL SIGNS: Blood pressure 134/62, heart rate 92 beats per minute, breathing 18 times per minute, temperature 98.5 degrees Fahrenheit. HEENT AND NECK: Extraocular movements are intact. Sclerae are anicteric. Oral mucosa is moist and clean. No obvious facial weakness. Neck is supple without any lymphadenopathy. No thyromegaly. No JVD. No carotid arterial bruits. LUNGS: Clear to auscultation. No wheezing. No rhonchi. CARDIOVASCULAR SYSTEM: Heart rate is regular in rate and rhythm. S1 and S2 [place], [place] REPORT OF CONSULTATION NAME: RANDY MCBRIDE UNIT #: [id number] ROOM: 524 DOCTOR: LITTLE ALEJANDRO MD BIRTHDATE: [birth year] normally audible. No significant murmur or any other abnormal cardiac sounds. ABDOMEN: Soft, nontender. No obvious organomegaly. Bowel sounds are present. No obvious herniation. EXTREMITIES: Without significant cyanosis or edema. Warm to touch. CENTRAL NERVOUS SYSTEM: Alert and oriented x 2. Cranial nerves II-XII are intact. Speech is normal. The patient is able to move all extremities. Normal muscle strength. Deep tendon reflexes are equal on both sides. Plantars were downgoing. LABORATORY DATA: Blood cultures have been negative. Urine cultures have been negative. Hypokalemia with potassium level of 3.1. Chronically anemic with hemoglobin of 10.3. IMPRESSION: 1. The patient with advanced protein calorie malnutrition and adult failure to thrive with end-stage chronic kidney disease. The patient on hemodialysis 3 times a week, generalized weakness and adult failure to thrive with ambulatory dysfunction as well. The patient working with Physical Therapy. 2. The patient lives at home with her boyfriend and has a brother on record. The patient needs a durable power of workers compensation defense attorney to help her with making health related discission, presently she has not appointed anybody who can decide for her. 3. Anemia related to chronic kidney disease. 4. Hypothyroidism, treated with thyroid supplements. 5. Type 2 diabetes mellitus, insulin requiring. Blood sugars are being monitored and treated. 6. Benign essential hypertension. Blood pressure is being monitored and treated. 7. The patient requires a durable power of workers compensation defense attorney to make health related decisions. The patient lives with her boyfriend who does not appear to be in a condition who can make decisions for her and she has a brother ____ next of kin. His name is written as next of kin in admission records, by name of Geovanny Mcbride and another brother, Armando Marco . Senior Energy Trader need to contact them and see if anybody is willing to be a durable power of workers compensation defense attorney. The patient maintains a full code status and does qualify to be considered as a do not resuscitate/comfort care. 8. Severe protein calorie malnutrition, generalized weakness and adult failure to thrive with ambulatory dysfunction. The patient working with Physical Therapy and still remains to be seen if she will be independent enough to be able to go home versus a fdc placement. Dr. Drew Her, thank you for asking me to see the patient. We will follow along with you. [place], [place] REPORT OF CONSULTATION NAME: RANDY MCBRIDE UNIT #: [id number] ROOM: 524 DOCTOR: FLAVIA LUNA,LITTLE Santiago BIRTHDATE: [birth year] LITTLE ALEJANDRO MD CM:CONSTR:REPORT OF CONSULTATION 1829 12/20/16 0110 interface
[2016-12-17 14:18] VITALS: BP 158/69
[~2016-12-17 14:18] MED LIST changes: -BACLOFEN20 M1 PO
[2016-12-17] MEDS ORDERED: BACLOFEN20 M1 PO (15:05)
[2016-12-17 15:13] LABS: BASO % 0.2 % (0.0-1.0); EOS % 0.3 % (1.0-4.0); HEMATOCRIT 33.5 % (37.0-47.0); HEMOGLOBIN 10.9 g/dl (12.0-16.0); LYMPH # 1.2 10*3/uL (1.3-4.4); LYMPH % 12.9 % (27.0-41.0); MEAN CELL VOLUME 95.4 fl (81.0-99.0); MEAN CORPUSCULAR HGB 31.1 pg (27.0-31.0); MEAN CORPUSCULAR HGB CONC 32.5 g/dl (33.0-37.0); MEAN PLATELET VOLUME 9.2 fl (9.6-12.3); MONO # 0.7 10*3/uL (0.1-1.0); MONO % 7.8 % (3.0-9.0); NEUT # 7.3 10*3/uL (2.3-7.9); NEUT % 77.6 % (47.0-73.0); PLATELET COUNT AUTOMATED 153 10*3/uL (130-400); RED BLOOD COUNT 3.51 10*6/uL (4.10-5.10); RED CELL DISTRI WIDTH 14.5 % (0-14.5); WHITE BLOOD COUNT 9.4 10*3/uL (4.8-10.8)
[2016-12-17 15:23] LABS: ACT PARTIAL THROMBO TIME 25.5 SECONDS (20.8-31.5)
[2016-12-17 15:24] LABS: ALBUMIN 2.8 gm/dl (3.1-4.5); ALKALINE PHOSPHATASE 132 U/L (45-117); BUN 22 mg/dl (7-24); CHLORIDE 97 mmol/L (98-107); CREATININE 5.85 mg/dL (0.55-1.02); LIPASE 115 U/L (73-393); POTASSIUM 3.7 mmol/L (3.5-5.1); SGOT/AST 20 IU/L (3-35); SGPT/ALT 20 U/L (12-78); SODIUM 135 mmol/L (136-145); TOTAL PROTEIN 7.4 gm/dL (6.4-8.2); TROPONIN I < 0.015 ng/ml (<0.045)
[2016-12-17 15:41] VITALS: BP 174/77
[2016-12-17 15:45] LABS: BILIRUBIN NEGATIVE (NEGATIVE); BLOOD TRACE-INTACT (NEGATIVE); CLARITY CLEAR (CLEAR); COLOR YELLOW (YELLOW); GLUCOSE NEGATIVE (NEGATIVE); KETONE NEGATIVE (NEGATIVE); LEUKO ESTERASE NEGATIVE (NEGATIVE); NITRITE NEGATIVE (NEGATIVE); SPECIFIC GRAVITY 1.015 (1.005-1.030); UROBILINOGEN 0.2 E.U./dl (0.2-1.0)
[2016-12-17 15:58] LABS: RBC 0-2 rbc/hpf (0-2)
[2016-12-17 17:18] VITALS: BP 121/63
[2016-12-17 17:30] VITALS: BP 120/62
--- NOTE | 2016-12-17 17:30 | NUR ---
Time: 1729 A 71 year old F admitted to 5E under services of DR. KAYLAN LUNA,ELANA. Pt. arrived via stretcher from ER. Chief complaint: CHANGE IN MENTAL STATUS, FEVER. [place]
--- NOTE | 2016-12-17 18:49 | NUR ---
SPOKE WITH JIMMY AT DR SALAS'S ANSWERING SERVICE REGARDING CONSULT.
--- NOTE | 2016-12-17 18:52 | NUR ---
SPOKE WITH NANNETTE AT DR VÁZQUEZ'S ANSWERING SERVICE REGARDING CONSULT.
--- NOTE | 2016-12-17 19:05 | NUR ---
PER DR MADDOX, CONTINUE HOME MEDICATIONS & PLAN FOR DIALYSIS TOMORROW.
--- NOTE | 2016-12-17 19:05 | NUR ---
SPOKE WITH DR SAUNDERS EGARDING CONSULT, NEW ORDERS RECEIVED.
[2016-12-18] VITALS: BP 144/67
[2016-12-18 06:30] LABS: BASO % 0.2 % (0.0-1.0); EOS % 0.1 % (1.0-4.0); HEMATOCRIT 32.9 % (37.0-47.0); HEMOGLOBIN 10.7 g/dl (12.0-16.0); LYMPH # 1.4 10*3/uL (1.3-4.4); LYMPH % 13.6 % (27.0-41.0); MEAN CELL VOLUME 96.2 fl (81.0-99.0); MEAN CORPUSCULAR HGB 31.3 pg (27.0-31.0); MEAN CORPUSCULAR HGB CONC 32.5 g/dl (33.0-37.0); MEAN PLATELET VOLUME 9.2 fl (9.6-12.3); MONO # 0.9 10*3/uL (0.1-1.0); MONO % 8.8 % (3.0-9.0); NEUT # 7.9 10*3/uL (2.3-7.9); NEUT % 75.9 % (47.0-73.0); NUCLEATED RED BLOOD CELL 0.2 % (0.0-0.0); PLATELET COUNT AUTOMATED 155 10*3/uL (130-400); RED BLOOD COUNT 3.42 10*6/uL (4.10-5.10); RED CELL DISTRI WIDTH 14.6 % (0-14.5); WHITE BLOOD COUNT 10.4 10*3/uL (4.8-10.8)
[2016-12-18 07:01] LABS: ALBUMIN 2.4 gm/dl (3.1-4.5); CREATININE 6.23 mg/dL (0.55-1.02); POTASSIUM 3.1 mmol/L (3.5-5.1); TOTAL PROTEIN 6.7 gm/dL (6.4-8.2)
[2016-12-18 08:00] VITALS: BP 144/51
--- NOTE | 2016-12-18 08:30 | NUR ---
Support Manager in to talk to patient. Patient states lives at HOME with HER BOYFRIEND. There are 0 steps in the home. Physician: DR KIMBROUGH Pharmacy: [facility] Home health services: NONE Patient's level of ADLs: MODERATE ASSIST Patient has working utilities: YES DME: OCC WALKER Follow-up physician's appointment after d/c: PREFERS TO MAKE HER OWN APPT Does patient want to access PORTAL?: Discharge plan HOME IF POSSIBLE. [facility] NIXON PT IS M-W-F DIALYSIS AND USES [facility] DENIES ANY DC NEEDS BUT WILL FOLLOW.
[2016-12-18 11:50] LABS: BILIRUBIN NEGATIVE (NEGATIVE); BLOOD 2+ (NEGATIVE); CLARITY SL CLOUDY (CLEAR); COLOR YELLOW (YELLOW); GLUCOSE TRACE (NEGATIVE); KETONE TRACE (NEGATIVE); LEUKO ESTERASE 2+ (NEGATIVE); NITRITE NEGATIVE (NEGATIVE); UROBILINOGEN 0.2 E.U./dl (0.2-1.0)
[2016-12-18 12:00] VITALS: BP 140/63
[2016-12-18 12:02] LABS: WBC 16-20 wbc/hpf (0-5)
[2016-12-18 12:03] LABS: BACTERIA 1+
--- NOTE | 2016-12-18 12:15 | NUR ---
Spoke with dialysis nurse regarding order to give antibiotics during dialysis.
--- NOTE | 2016-12-18 12:25 | NUR ---
Dialysis nurse states she is ready for pt
--- NOTE | 2016-12-18 17:27 | NUR ---
Pt remains in dialysis.
--- NOTE | 2016-12-18 17:30 | NUR ---
Pt returns from dialysis.
--- NOTE | 2016-12-18 19:50 | NUR ---
PT. AWAKE, ALERT AND ORIENTED X 3 AT THIS TIME. PT. IS HARD OF HEARING AND IS REPORTED TO HAVE PERIODS OF CONFUSION THAT THIS NURSE HAS NOT SEEN YET. PT. DENIES SOB, CP, AND PAIN. CALL LIGHT WITHIN REACH, BED IN LOWEST POSITION, WHEELS LOCKED. SEE SHIFT ASSESSMENT.
[2016-12-18 20:00] VITALS: BP 131/68
[2016-12-19] VITALS: BP 140/68
[2016-12-19 07:04] LABS: BASO % 0.2 % (0.0-1.0); EOS # 0.1 10*3/uL (0.0-0.4); EOS % 0.7 % (1.0-4.0); HEMATOCRIT 31.6 % (37.0-47.0); HEMOGLOBIN 10.3 g/dl (12.0-16.0); LYMPH # 0.8 10*3/uL (1.3-4.4); LYMPH % 8.4 % (27.0-41.0); MEAN CELL VOLUME 96.9 fl (81.0-99.0); MEAN CORPUSCULAR HGB 31.6 pg (27.0-31.0); MEAN CORPUSCULAR HGB CONC 32.6 g/dl (33.0-37.0); MEAN PLATELET VOLUME 9.4 fl (9.6-12.3); MONO # 0.7 10*3/uL (0.1-1.0); MONO % 7.5 % (3.0-9.0); NEUT # 7.6 10*3/uL (2.3-7.9); NEUT % 82.1 % (47.0-73.0); PLATELET COUNT AUTOMATED 136 10*3/uL (130-400); RED BLOOD COUNT 3.26 10*6/uL (4.10-5.10); RED CELL DISTRI WIDTH 14.5 % (0-14.5); WHITE BLOOD COUNT 9.2 10*3/uL (4.8-10.8)
[2016-12-19 07:30] LABS: ALBUMIN 2.2 gm/dl (3.1-4.5); CREATININE 3.5 mg/dL (0.55-1.02); PHOSPHOROUS 2.2 mg/dL (2.5-4.9); POTASSIUM 3.1 mmol/L (3.5-5.1); TOTAL PROTEIN 6.7 gm/dL (6.4-8.2)
[2016-12-19 08:00] VITALS: BP 140/64
[2016-12-19 12:00] VITALS: BP 122/61
[2016-12-19 16:00] VITALS: BP 134/62
--- NOTE | 2016-12-19 16:33 | NUR ---
Pt taken off floor for CT chest.
--- NOTE | 2016-12-19 17:48 | NUR ---
Spoke with Yelena in lab regarding message order for lab to order histoplasmosis urine antigen. She states she did order it and notified Geri Lara the stewardesses teacher about it. I wasnt notified but I spoke with Geri who states she notified that PA that the urine was needed as the order was already entered by lab.
[2016-12-19 20:00] VITALS: BP 162/68
--- NOTE | 2016-12-19 23:00 | NUR ---
PATIENT ATE A BOWL OF APPLESAUCE, AND LATER HAD EMESIS X2.
[2016-12-20] VITALS: BP 142/56
--- NOTE | 2016-12-20 01:27 | NUR ---
24 HR chart check completed.
[2016-12-20 06:35] LABS: BASO % 0.2 % (0.0-1.0); EOS % 0.4 % (1.0-4.0); HEMATOCRIT 27.1 % (37.0-47.0); HEMOGLOBIN 8.8 g/dl (12.0-16.0); LYMPH # 0.6 10*3/uL (1.3-4.4); LYMPH % 7.7 % (27.0-41.0); MEAN CELL VOLUME 96.4 fl (81.0-99.0); MEAN CORPUSCULAR HGB 31.3 pg (27.0-31.0); MEAN CORPUSCULAR HGB CONC 32.5 g/dl (33.0-37.0); MEAN PLATELET VOLUME 9.2 fl (9.6-12.3); MONO # 0.6 10*3/uL (0.1-1.0); MONO % 6.9 % (3.0-9.0); NEUT # 6.7 10*3/uL (2.3-7.9); NEUT % 83.7 % (47.0-73.0); PLATELET COUNT AUTOMATED 114 10*3/uL (130-400); RED BLOOD COUNT 2.81 10*6/uL (4.10-5.10); RED CELL DISTRI WIDTH 14.6 % (0-14.5); WHITE BLOOD COUNT 8.1 10*3/uL (4.8-10.8)
[2016-12-20 06:57] LABS: ALBUMIN 1.9 gm/dl (3.1-4.5); CREATININE 5.18 mg/dL (0.55-1.02); PHOSPHOROUS 4.2 mg/dL (2.5-4.9); POTASSIUM 3.3 mmol/L (3.5-5.1)
--- NOTE | 2016-12-20 07:30 | NUR ---
PATIENT IS RESTING IN BED, PATIENT HAS GEN WEAKNESS, BUT IS ABLE TO ASSIST IN REPOSITIONING DURING ASSESSMENT. PATIENT DENIES ANY PAIN, DISCOMFORT, OR SOB. PATIENT IS SCHEDULED FOR DIALYSIS THIS MORNING. CALL LIGHT IS WITHIN REACH. SEE SHIFT ASSESSMENT.
[2016-12-20 08:00] VITALS: BP 134/50
--- NOTE | 2016-12-20 08:00 | NUR ---
PATIENT IS OFF THE FLOOR FOR DIALYSIS
--- NOTE | 2016-12-20 11:45 | NUR ---
PATIENT IS BACK ON THE FLOOR FROM DIALYSIS.
[2016-12-20 12:00] VITALS: BP 160/61
--- NOTE | 2016-12-20 15:15 | NUR ---
PATIENT IS RESTING COMFORTABLY IN THE BED. PATIENT IS MONITORED AND RUNNING SINUS TACHY IN THE 110'S. PATIENT DENIES ANY SOB, DISCOMFORT, OR PAIN. PATIENT HAS BEEN ABLE TO AMBULATE INDEPENDENTLY TO THE BATHROOM. PT +BRUIT AND THRILL. EXTREMITIES ARE COLD WITH PALPABLE PULSES. FAMILY AT THE BEDSIDE. CALL LIGHT IS WITHIN REACH. SEE SHIFT ASSESSMENT.
[2016-12-20 16:00] VITALS: BP 137/56
--- NOTE | 2016-12-20 17:54 | NUR ---
PATIENT RESTING COMFORTABLY IN BED. PATIENT DENIES ANY PAIN OR DISCOMFORT AT THIS TIME. PATIENT HAS FAMILY AT THE BEDSIDE. PATIENT VERBALIZES FEELING MUCH BETTER TODAY AFTER DIALYSIS AND HAS BEEN ABLE TO AMBULATE WITH MINIMUM ASSIST. PATIENT DOESN'Y HAVE ANY FURTHER REQUESTS AT THIS TIME. PATIENT WAS PLEASANT AND COOPERATIVE AT THIS TIME. CALL LIGHT SYSTEM REINFORCED. SEE SHIFT ASSESSMENT
[2016-12-20 20:00] VITALS: BP 107/63
[2016-12-21] VITALS: BP 100/49
[2016-12-21 06:51] LABS: BASO % 0.4 % (0.0-1.0); EOS # 0.2 10*3/uL (0.0-0.4); EOS % 3.4 % (1.0-4.0); HEMATOCRIT 30.2 % (37.0-47.0); HEMOGLOBIN 9.6 g/dl (12.0-16.0); LYMPH # 0.6 10*3/uL (1.3-4.4); LYMPH % 13.7 % (27.0-41.0); MEAN CELL VOLUME 96.2 fl (81.0-99.0); MEAN CORPUSCULAR HGB 30.6 pg (27.0-31.0); MEAN CORPUSCULAR HGB CONC 31.8 g/dl (33.0-37.0); MEAN PLATELET VOLUME 9.6 fl (9.6-12.3); MONO # 0.5 10*3/uL (0.1-1.0); MONO % 11.6 % (3.0-9.0); NEUT # 3.2 10*3/uL (2.3-7.9); NEUT % 69.6 % (47.0-73.0); PLATELET COUNT AUTOMATED 117 10*3/uL (130-400); RED BLOOD COUNT 3.14 10*6/uL (4.10-5.10); RED CELL DISTRI WIDTH 14.9 % (0-14.5); WHITE BLOOD COUNT 4.7 10*3/uL (4.8-10.8)
[2016-12-21 07:08] LABS: CREATININE 4.22 mg/dL (0.55-1.02); POTASSIUM 3.5 mmol/L (3.5-5.1)
[2016-12-21 08:00] VITALS: BP 116/50
[2016-12-21 12:00] VITALS: BP 105/56
--- NOTE | 2016-12-21 13:21 | NUR ---
DR KIMBROUGH IN TO SEE PT. DISCHARGE ORDERS RECEIVED.
--- NOTE | 2016-12-21 13:24 | NUR ---
PT DISCHARGED AT THIS TIME WITH TO HOME.
== END 2016-12-21 13:24 | disposition home or self-care (01) | DRG 871 ==
LOC: ED 14:18 → 5E 16:18 → EDHOLD 16:18 → 5E 16:30
PROVIDERS: Emergency Medicine; Internal Medicine; Internal Medicine Hospice and Palliative Medicine; ADMIT Internal Medicine
PROC: 5A1D70Z Performance of Urinary Filtration, Intermittent, Less than 6 Hours Per Day (ICD-10-PCS; principal; 2016-12-18)
PROC: 5A1D70Z Performance of Urinary Filtration, Intermittent, Less than 6 Hours Per Day (ICD-10-PCS; 2016-12-20)
DX: A41.9 Sepsis, unspecified organism (principal); G93.41 Metabolic encephalopathy; E43 Unspecified severe protein-calorie malnutrition; I13.2 Hypertensive heart and chronic kidney disease with heart failure and with stage 5 chronic kidney disease, or end stage renal disease; J18.1 Lobar pneumonia, unspecified organism; E11.22 Type 2 diabetes mellitus with diabetic chronic kidney disease; E87.8 Other disorders of electrolyte and fluid balance, not elsewhere classified; N18.6 End stage renal disease; E87.1 Hypo-osmolality and hyponatremia; N25.81 Secondary hyperparathyroidism of renal origin; J44.0 Chronic obstructive pulmonary disease with (acute) lower respiratory infection; I50.9 Heart failure, unspecified; J32.9 Chronic sinusitis, unspecified; R62.7 Adult failure to thrive; E11.65 Type 2 diabetes mellitus with hyperglycemia; D63.1 Anemia in chronic kidney disease; E87.6 Hypokalemia; R65.20 Severe sepsis without septic shock; F41.9 Anxiety disorder, unspecified; K59.00 Constipation, unspecified; M19.90 Unspecified osteoarthritis, unspecified site; K21.9 Gastro-esophageal reflux disease without esophagitis; E78.5 Hyperlipidemia, unspecified; E03.9 Hypothyroidism, unspecified; Y95 Nosocomial condition; Z99.2 Dependence on renal dialysis; Z88.4 Allergy status to anesthetic agent; Z98.49 Cataract extraction status, unspecified eye; Z90.49 Acquired absence of other specified parts of digestive tract; Z82.49 Family history of ischemic heart disease and other diseases of the circulatory system; Z83.3 Family history of diabetes mellitus; Z80.9 Family history of malignant neoplasm, unspecified; Z87.01 Personal history of pneumonia (recurrent); Z82.5 Family history of asthma and other chronic lower respiratory diseases; Z79.899 Other long term (current) drug therapy; Z68.30 Body mass index [BMI] 30.0-30.9, adult

== ENCOUNTER → 2016-12-26 | Outpatient (CLI) | payer MEDICARE, MEDICAID ==
[~2016-12-26] MED LIST changes: +BACLOFEN20 M1 PO; +GOOD NEIGHBOR150 MG PO; +METRONIDAZOLE500 M1 PO; +STOOL SOFTENER100 MG PO; +VANCOCIN125 M1 PO
== END | disposition home or self-care (01) ==
LOC: LAB 15:50
DX: R19.7 Diarrhea, unspecified (principal)

== ENCOUNTER 2016-12-27 15:37 | Inpatient (IN) | payer MEDICARE, MEDICAID ==
[~2016-12-27] VITALS: Ht 170.2 cm; Wt 86.2 kg
--- NOTE | ~2016-12-27 | CON ---
[place], [place] REPORT OF CONSULTATION NAME: RANDY MCBRIDE UNIT #: [id number] ROOM: 521 DOCTOR: AGUSTIN ANDERSON,MAY BIRTHDATE: [birth year] DOS: HISTORY OF PRESENT ILLNESS: The patient is a 71-year-old female with end-stage renal disease on hemodialysis, who was admitted on 12/27/2016 with a temperature of 102.9 from home with mental status changes. Her admitting blood cultures and urine culture were negative. She did have a positive C. diff on 12/26/2016, states she had had diarrhea for approximately the last 3 weeks. White count was 7000 on admission, ID is consulted for fever and C. diff. She still has temp as of last night up to 101.1 and then low grade today at 99.6. The patient is somewhat of a poor historian, does give some history of nausea, poor appetite as well as she states diarrhea for the last 3 weeks, also states her boyfriend had diarrhea for the last 3 weeks. Her chest x-ray was clear on admission, head CT unremarkable. She has a shoulder x-ray that was done today due to complaints of left shoulder pain started this morning that was unremarkable. She was started on Flagyl with positive C. diff. PAST MEDICAL HISTORY: As above as well as arthritis, CHF, chronic anemia, chronic sinusitis, chronic kidney disease requiring hemodialysis, GERD, hyperlipidemia, hypertension, diabetes, cataract surgery, cholecystectomy. SOCIAL HISTORY: Nonsmoker, nondrinker, no illicit drug use. FAMILY MEDICAL HISTORY: Mother of CHF. Father is also . There is family medical history of COPD. ALLERGIES: GENERAL ANESTHETICS. CURRENT MEDICATIONS: Include oral vancomycin at 250 mg p.o. q.i.d. of which was started when the consult was called, Singulair, insulin, Prilosec, Synthroid, Ventolin, Dulera, still currently has Flagyl, ordered heparin, Zofran, milk of mag, Dulcolax, [place], Tylenol. LABORATORY DATA: WBC is 5.9, platelets 159, BUN 18, creatinine 6.74. She was also hospitalized at the end of November and was followed for influenzae and that came back negative. She also had blood cultures at that time that came back negative. VITAL SIGNS: Show temperature 99.6, pulse 107, respirations 20, BP 131/57. REVIEW OF SYSTEMS: As above in history of present illness, does have some lower extremity edema. Denies any other pain besides the left shoulder that started this morning. Again, he continues to have fevers since admission 2 days ago, temperature max overnight was 101.1, temperature max on admission was 102.9, does seem to be able to give much accurate review of systems regarding her diarrhea, if it is improving. States she has had it for 3 weeks. No cough or shortness of breath. No rash or itch. No abdominal pain or cramps. She no longer urinates at all on her hemodialysis. She has a left arm graft or fistula, she is not sure which. Further review of systems unremarkable. VITAL SIGNS: Show temperature 99.6, pulse 107, respirations 20, BP 131/57. [place], [place] REPORT OF CONSULTATION NAME: RANDY MCBRIDE UNIT #: [id number] ROOM: 521 DOCTOR: AGUSTIN ANDERSONMAY BIRTHDATE: [birth year] PHYSICAL EXAMINATION: GENERAL: A 71-year-old female in no acute distress. HEENT: Normocephalic. NECK: Supple. Mucous membranes pink and moist. No thrush. Edentulous. LUNGS: Clear to auscultation bilaterally. Respirations even and unlabored. HEART: Regular rhythm. No murmur appreciated. ABDOMEN: Soft, nontender, positive bowel sounds. EXTREMITIES: +1 edema bilateral lower extremities. No deformity. Left shoulder is unremarkable on physical exam with no erythema or swelling. She does have some CVA tenderness bilaterally. ASSESSMENT: Clostridium Difficile. PLAN: Antibiotics were reviewed, changed to oral vancomycin from Flagyl, continue the vancomycin at 250 mg p.o. q.i.d., if the temperatures continue, consider a renal ultrasound. Reviewed wound charts as well as current. Case discussed with Dr. Yuan Huang. SEBASTIAN JUSTIN VELEZ YUAN HUANG MD CM:CONSTR:REPORT OF CONSULTATION 1733 12/29/16 1820 interface
--- NOTE | ~2016-12-27 | PR ---
[place], [place] PROGRESS NOTE NAME: [facility]BRIDE [id number] UNIT #: [id number] ROOM: 521 DOCTOR: DARCY GAMA MD BIRTHDATE: [birth year] DOS: 12/30/2016 SUBJECTIVE: The patient is with chronic renal failure and on hemodialysis, was admitted to hospital with confused mental status, as she had developed some urosepsis from which she is progressively getting better. Today, she is conscious, alert, and oriented. She is not in any distress. She is eating fairly well. No nausea, no vomiting and no fever or chills. She was admitted with acute due to her renal infection, with fever, hypokalemia, hypoxemia, metabolic alkalosis, hypochloremic anemia, severe sepsis with tachycardia, C. diff colitis, hypothyroidism, hyperlipidemia, hypertension, GERD syndrome, chronic renal disease and type 2 diabetes. The patient is improving quite satisfactorily and is being also followed by renal doctor, Dr. Mcdonald. Her basic metabolic profile today showed glucose 117, BUN 10 and creatinine is 4.3. GFR is 10. Potassium is 3.3, chloride is 94. Her CBC today showed hypochromic anemia with hemoglobin of 9.2, hematocrit 28.7 due to her chronic renal disease. OBJECTIVE: VITAL SIGNS: Her blood pressure is 108/50, pulse of 92, respirations 18, temperature 98.1. CHEST: Clear. HEART: Regular. ABDOMEN: Soft. DARCY GAMA MD CM:PNTRANS 1108 1348 DARCY GAMA MD 01/01/17 1101 interface
--- NOTE | ~2016-12-27 | PR ---
[place], [place] PROGRESS NOTE NAME: RANDY MCBRIDE UNIT #: [id number] ROOM: 521 DOCTOR: REINA LUNA,YUAN Snyder BIRTHDATE: [birth year] DOS: 12/30/2016 ADDENDUM After reviewing the chart, labs, and microbiology, agree with the above plans as described. We will follow the patient up clinically and adjust accordingly. YUAN HUANG MD CM:PNTRANS 25 25 YUAN HUANG MD 12/30/161923 interface
--- NOTE | ~2016-12-27 | PR ---
[place], [place] PROGRESS NOTE NAME: RANDY MCBRIDE UNIT #: [id number] ROOM: 521 DOCTOR: AGUSTIN ANDERSON,MAY BIRTHDATE: [birth year] DOS: 12/30/2016 SUBJECTIVE: The patient is being followed for C. diff. Her temperatures have significantly improved. Max temp overnight was 99.8. She is alert, still may be a little confused. No nausea or vomiting. States she is having some diarrhea. Denies any pain other than somewhat in her feet and legs. No cough or shortness of breath. No rashes. LABORATORY DATA: Show WBC 7.2, platelets 144, BUN 10, creatinine 4.3. Urine and blood cultures negative. She had had a positive C. diff on the . CURRENT MEDICATIONS: Include oral vancomycin, Singulair, insulin, Prilosec, Synthroid, Ventolin, Dulera, Flagyl, heparin, [place], Tylenol. PHYSICAL EXAMINATION: VITAL SIGNS: Show temp 98.1, pulse 90, respirations 18, BP 126/46. GENERAL: A 71-year-old female, in no acute distress. HEAD, EYES, EARS, NOSE, AND THROAT: Normocephalic, no thrush. LUNGS: Clear to auscultation bilaterally. Respirations even and unlabored. HEART: Regular rhythm. No murmur appreciated. ABDOMEN: Soft, nontender. EXTREMITIES: +2 edema bilateral lower extremities. SKIN: Warm, dry, free of rashes. ASSESSMENT: Clostridium difficile, fevers are improving. PLAN: We will continue the oral vancomycin, stop the Flagyl. She will need a total of 14 days of treatment. Case discussed with Dr. Yuan Huang. MAY JUSTIN VELEZ YUAN HUANG MD CM:PNVENKAT 1754 19 AGUSTIN ANDERSON 01/01/17 1050 interface
--- NOTE | ~2016-12-27 | EKG ---
[place], [place] ELECTROCARDIOGRAM REPORT NAME: RANDY MCBRIDE UNIT #: [id number] ROOM: 521 DOCTOR: ELANA KIMBROUGH MD BIRTHDATE: [birth year] DOS: EKG REPORT RATE AND RHYTHM: Normal sinus tachycardia at 100 beats per minute, TN interval 152 milliseconds, QRS duration 83 milliseconds, corrected QT interval 510 milliseconds, QRS axis 57. IMPRESSION: 1. Sinus tachycardia. 2. Low voltage in extremity leads. 3. Prolonged QT interval. 4. No old EKG to compare with. 5. This is abnormal EKG. ELANA KIMBROUGH MD CM:EKGRPT:ELECTROCARDIOGRAM REPORT 0930 1209 ELANA KIMBROUGH MD
--- NOTE | ~2016-12-27 | CON ---
[place], [place] REPORT OF CONSULTATION NAME: RANDY MCBRIDE UNIT #: [id number] ROOM: 521 DOCTOR: REINA LUNA,YUAN Snyder BIRTHDATE: [birth year] DOS: 12/29/2016 ADDENDUM After reviewing the chart, radiographs, labs and microbiology, I agree with the plans as described above. We will follow the patient up clinically and adjust accordingly. Thank you for allowing me to see the patient and participate in her care. YUAN HUANG MD CM:CONSTR:REPORT OF CONSULTATION 1926 01/01/17 1104 interface
--- NOTE | ~2016-12-27 | EKG ---
[place], [place] ELECTROCARDIOGRAM REPORT NAME: RANDY MCBRDIE UNIT #: [id number] ROOM: 521 DOCTOR: ELANA KIMBROUHG MD BIRTHDATE: [birth year] DOS: 12/27/2016 ADDENDUM TIME: 16:06:31. ELANA KIMBROUGH MD CM:EKGRPT:ELECTROCARDIOGRAM REPORT 0931 1210 ELANA KIMBROUGH MD
--- NOTE | ~2016-12-27 | PR ---
[place], [place] PROGRESS NOTE NAME: RANDY MCBRIDE UNIT #: [id number] ROOM: 521 DOCTOR: TEDDY SALAS MD BIRTHDATE: [birth year] DOS: 12/31/2016 SUBJECTIVE: The patient was seen and followed for end-stage renal disease. She underwent dialysis on Sunday. She still reports being cold, low grade temperature is continued at 99.2 overnight and heart rates are elevated at those times. Blood cultures remained no growth to date. She thinks that some of the chills that she may be getting may be related to that place where she sits in a dialysis unit is near the door, which leads to her back store room, which leads to another room, which leads to the loading dock and she thinks it is colder back there because there is no heat and honest to truth I have not been in the clinic to see what the exact temperature is, but she wants to consider moving. I think she is confabulating or just opposing the fact that her PCP wants to take her to a new sniff instead of home at discharge with a new dialysis unit because she thinks that she would be getting dialysis at [facility]. PHYSICAL EXAMINATION: VITAL SIGNS: 98.3, 84, 20, 130/56, 97%, T-max was 99.2 with heart rate max of 108. GENERAL: Awake, alert, very hard of hearing, sitting in chair. Oropharynx is clear. Mucous membranes are moist. LUNGS: Clear bilaterally. CARDIOVASCULAR: Regular rate. No rub. ABDOMEN: Soft. No CVA tenderness. EXTREMITIES: Slight peripheral edema. Without cyanosis. NEUROLOGIC: Motor function is intact: PSYCHIATRIC: Mood and affect are normal. Memory is intact, but insight questionable at times. LABORATORIES AND DIAGNOSTICS: White blood cell count 8, hemoglobin 10.2, platelets 169, sodium 133, potassium 3.7, chloride 92, bicarbonate 32, BUN 17, creatinine 6.19, glucose 115, calcium 8.5, phosphorus 2.5, magnesium 2, albumin 2.4. ASSESSMENT AND PLAN: End-stage renal disease, hemodialysis will be tomorrow and continue on Sunday, Sunday, and Sunday. We will probably reduce her time slightly, continue electrolyte follow up, may be try to increase her ultrafiltration as tolerated, but blood pressures remain on the soft side. Phosphorus is also on the lower side of normal, increased oral protein intake as tolerated. Her predialysis BUN was only 18 on Sunday being she is undernourished. Albumin is also low. I think this infection and low grade temperature seem to continue, it is most likely viral in nature. We will try to see what we can do about moving her chair and dialysis to a different location. [place], [place] PROGRESS NOTE NAME: RANDY MCBRIDE UNIT #: [id number] ROOM: 521 DOCTOR: TEDDY SALAS MD BIRTHDATE: [birth year] TEDDY SALAS MD CM:PNTRANS 1522 0028 TEDDY SALAS MD 01/01/17 0027 interface
--- NOTE | ~2016-12-27 | PR ---
[place], [place] PROGRESS NOTE NAME: RANDY MCBRIDE UNIT #: [id number] ROOM: 521 DOCTOR: TEDDY SALAS MD BIRTHDATE: [birth year] DOS: 12/30/2016 REASON FOR FOLLOWUP: End-stage renal disease. SUBJECTIVE: She underwent dialysis yesterday, tolerated it well, still is having some issues with C. difficile colitis. White count is normal. She is changed to p.o. vancomycin. ____ was stopped. PHYSICAL EXAMINATION: VITAL SIGNS: 108/50, 98.1, 92, 16. GENERAL: Awake, alert and oriented, very hard of hearing chronically. HEAD AND NECK: Oropharynx is clear. Mucous membranes are moist. LUNGS: Clear bilaterally, no audible rales or wheeze. CARDIOVASCULAR: Regular rate. No audible rub. EXTREMITIES: No noted peripheral edema of at least 1-2+ in the lower extremities when sitting. Abdominal exam is soft. She is not reporting any specific tenderness at this time. Apparently, she had some CVA tenderness yesterday. EXTREMITIES: Without cyanosis. NEUROLOGIC: Gross motor function is intact. Mood and affect are normal. Memory and recall are normal. LABORATORY DATA: Laboratories show white blood cell count 7.2, hemoglobin 9.2, platelets 144. Sodium 135, potassium 3.3, chloride 94, bicarbonate 32, BUN 10, creatinine 4.3, glucose 117, calcium 8.3, phosphorus 2.0, magnesium 1.9, albumin 2.2. ASSESSMENT AND PLAN: 1. End-stage renal disease. Continue hemodialysis Sunday, Sunday and Sunday, may be able to reduce her time slightly. Close followup of potassium for hypokalemia and replacement, try to ultra filter some of the edema as tolerated, but blood pressures are soft. Phosphorus is also low, encourage increased oral protein intake as her pre-dialysis BUN was only 18 yesterday as well. Thank you very much for the kind consultation. [place], [place] PROGRESS NOTE NAME: RANDY MCBRIDE UNIT #: [id number] ROOM: 521 DOCTOR: TEDDY SALAS MD BIRTHDATE: [birth year] TEDDY SALAS MD CM:LINH 1154 21 TEDDY SALAS MD 12/30/162219 interface
--- NOTE | ~2016-12-27 | PR ---
[place], [place] PROGRESS NOTE [facility]IDE [id number] UNIT #: [id number] ROOM: 521 DOCTOR: DARCY GAMA MD BIRTHDATE: [birth year] DOS: 12/31/2016 SUBJECTIVE: The patient has been admitted to hospital with urosepsis with confused mental status; end-stage renal failure, on hemodialysis. The patient is gradually getting better. She is conscious, alert, and oriented. Her CBC showed hemoglobin 10.2, hematocrit 32.2 indicating chronic anemia due to renal failure. Her white count is normal . Her basic metabolic profile today showed glucose 115, BUN 17, creatinine 6.19, GFR is 7, sodium 133, potassium 3.7, chloride 92, albumin 2.4. Other values are normal. OBJECTIVE: VITAL SIGNS: Blood pressure is /50, pulse 95, respirations 18, temperature 98.7. CHEST: Clear. HEART: Regular. ABDOMEN: Soft. The patient is feeling much better. DARCY GAMA MD CM:PNTRANS 1148 2313 DARCY GAMA MD 01/01/17 1102 interface
[~2016-12-27 15:37] MED LIST changes: -GOOD NEIGHBOR150 MG PO; -METRONIDAZOLE500 M1 PO; -STOOL SOFTENER100 MG PO; -VANCOCIN125 M1 PO
[2016-12-27 16:00] VITALS: BP 167/82
[2016-12-27 16:09] LABS: BASO % 0.1 % (0.0-1.0); EOS # 0.1 10*3/uL (0.0-0.4); HEMATOCRIT 28.6 % (37.0-47.0); HEMOGLOBIN 9.4 g/dl (12.0-16.0); LYMPH # 0.4 10*3/uL (1.3-4.4); LYMPH % 5.6 % (27.0-41.0); MEAN CELL VOLUME 93.5 fl (81.0-99.0); MEAN CORPUSCULAR HGB 30.7 pg (27.0-31.0); MEAN CORPUSCULAR HGB CONC 32.9 g/dl (33.0-37.0); MEAN PLATELET VOLUME 9.1 fl (9.6-12.3); MONO # 0.4 10*3/uL (0.1-1.0); MONO % 5.6 % (3.0-9.0); NEUT % 86.6 % (47.0-73.0); PLATELET COUNT AUTOMATED 166 10*3/uL (130-400); RED BLOOD COUNT 3.06 10*6/uL (4.10-5.10); RED CELL DISTRI WIDTH 14.8 % (0-14.5)
[2016-12-27 16:24] LABS: ACT PARTIAL THROMBO TIME 25.1 SECONDS (20.8-31.5); INTERNATIONAL NORM RATIO 1.1 (2.0-3.5)
[2016-12-27 16:27] LABS: ALBUMIN 2.4 gm/dl (3.1-4.5); ALKALINE PHOSPHATASE 108 U/L (45-117); BUN 6 mg/dl (7-24); CHLORIDE 97 mmol/L (98-107); CREATININE 2.87 mg/dL (0.55-1.02); POTASSIUM 2.9 mmol/L (3.5-5.1); SGOT/AST 27 IU/L (3-35); SGPT/ALT 26 U/L (12-78); SODIUM 138 mmol/L (136-145); TOTAL PROTEIN 6.8 gm/dL (6.4-8.2)
[2016-12-27 16:32] LABS: TROPONIN I < 0.015 ng/ml (<0.045)
[2016-12-27 17:04] LABS: BILIRUBIN 1+ (NEGATIVE); BLOOD 2+ (NEGATIVE); CLARITY SL CLOUDY (CLEAR); COLOR YELLOW (YELLOW); GLUCOSE NEGATIVE (NEGATIVE); KETONE NEGATIVE (NEGATIVE); LEUKO ESTERASE NEGATIVE (NEGATIVE); NITRITE POSITIVE (NEGATIVE); UROBILINOGEN 0.2 E.U./dl (0.2-1.0)
[2016-12-27 17:21] LABS: BACTERIA 1+
[2016-12-27 18:20] VITALS: BP 117/43
--- NOTE | 2016-12-27 18:20 | NUR ---
PATIENT WITH ROCPHEN INFUSING AT TIME OF ADMISSION
--- NOTE | 2016-12-27 18:20 | NUR ---
A 71, admitted to , under the services of ELANA Arriaga MD with a diagnosis of ENCEPHALOPATHY, FEVER, HYPOKALEMIA. Chief complaint is CHANGE IN MENTAL STATUS. Patient arrived via stretcher from ER. Monitor applied. Initial assessment completed. Vital signs taken and recorded. ELANA ARRIAGA MD notified of admission to the unit. Orders received. See assessment for past medical history, medications and allergies. Patient and/or family oriented to unit. [facility] visitation policy reviewed. Clothing/patient valuable form completed. FRANKLIN VELA
--- NOTE | 2016-12-27 18:30 | NUR ---
DR JACKSON IN TO SEE PT
[2016-12-27 19:24] LABS: ABG BASE EXCESS 11.1 mmol/L (-2.0-2.0); ABG HCO3 35.4 mmol/l (22-26); ABG O2 SATURATION 93.9 % (95-97); ARTERIAL BLOOD GAS PCO2 47.3 mmHg (35-45); ARTERIAL BLOOD GAS PH 7.49 (7.35-7.45); ARTERIAL BLOOD GAS PO2 64.3 mmHg (80-90)
--- NOTE | 2016-12-27 19:26 | NUR ---
DR SALAS ANSWERING SERVICE NOTIFIED OF CONSULT
--- NOTE | 2016-12-27 19:27 | NUR ---
PT MED LIST NOT COMPLETED AT THIS TIME. PT GIVEN TO CORAZON RN NOTIFIED
[2016-12-27 20:00] VITALS: BP 115/55
--- NOTE | 2016-12-27 20:30 | NUR ---
ATTEMPTED TO REVIEW MEDS WITH PATIENT, PATIENT UNSURE OF MED LIST. MEDS UPDATED VIA MED REC AND DISCHARGE SUMMARY FROM 12/21
--- NOTE | 2016-12-27 21:00 | NUR ---
AWAKE, FLAT AFFECT BUT COOPERATIVE. RESPIRATIONS EASY. LUNGS DIMINISHED. PULSE OX 95% RA. TRACE BLE EDEMA. CALL LIGHT WITHIN REACH. BED ALARM APPLIED FOR SAFETY
[2016-12-28] VITALS: BP 109/45
--- NOTE | 2016-12-28 00:30 | NUR ---
SLEEPING, NO DISTRESS NOTED. RESPIRATIONS EASY. VSS. CALL LIGHT WITHIN REACH
--- NOTE | 2016-12-28 04:00 | NUR ---
SLEEPING. RESPIRATIONS EAY. IV FLUIDS INFUSING PER ORDER
[2016-12-28] MEDS ORDERED: METRONIDAZOLE500 M1 PO (04:52)
[2016-12-28] MEDS ORDERED: BACLOFEN20 M1 PO (04:52)
[2016-12-28] MEDS ORDERED: GOOD NEIGHBOR150 MG PO (04:54)
--- NOTE | 2016-12-28 06:00 | NUR ---
SLEPT THROUGHOUT NIGHT WITH NO DISTRESS NOTED. RESPIRATIONS EASY. IV FLUIDS MAINTAINED. CALL LIGHT WITHIN REACH. NO VOICED COMPLAINTS THIS SHIFT
[2016-12-28 07:10] LABS: BASO % 0.4 % (0.0-1.0); EOS # 0.1 10*3/uL (0.0-0.4); EOS % 2.2 % (1.0-4.0); HEMATOCRIT 29.5 % (37.0-47.0); HEMOGLOBIN 9.2 g/dl (12.0-16.0); LYMPH # 0.8 10*3/uL (1.3-4.4); LYMPH % 15.1 % (27.0-41.0); MEAN CORPUSCULAR HGB 30.2 pg (27.0-31.0); MEAN CORPUSCULAR HGB CONC 31.2 g/dl (33.0-37.0); MEAN PLATELET VOLUME 8.9 fl (9.6-12.3); MONO # 0.4 10*3/uL (0.1-1.0); MONO % 7.7 % (3.0-9.0); NEUT # 3.9 10*3/uL (2.3-7.9); NEUT % 72.4 % (47.0-73.0); PLATELET COUNT AUTOMATED 153 10*3/uL (130-400); RED BLOOD COUNT 3.05 10*6/uL (4.10-5.10); RED CELL DISTRI WIDTH 15.1 % (0-14.5); WHITE BLOOD COUNT 5.4 10*3/uL (4.8-10.8)
[2016-12-28 07:12] LABS: MEAN CELL VOLUME 96.7 fl (81.0-99.0)
[2016-12-28 07:18] LABS: ACT PARTIAL THROMBO TIME 26.9 SECONDS (20.8-31.5); INTERNATIONAL NORM RATIO 1.2 (2.0-3.5)
[2016-12-28 07:42] LABS: ALBUMIN 2.2 gm/dl (3.1-4.5); CREATININE 4.73 mg/dL (0.55-1.02); POTASSIUM 3.4 mmol/L (3.5-5.1); TOTAL PROTEIN 6.4 gm/dL (6.4-8.2)
[2016-12-28 08:00] VITALS: BP 110/42
--- NOTE | 2016-12-28 08:00 | NUR ---
RESTING QUIETLY NO C/O NO DISTRESS NOTED. IV FLUIDS INFUSING. SEE SHIFT ASSESSMENT.
--- NOTE | 2016-12-28 08:30 | NUR ---
Shoemaking Finisher in to talk to patient. Patient states lives at HOME with HER BOYFRIEND. There are 0 steps in the home. Physician: DR KIMBROUGH Pharmacy: [facility] Home health services: NONE Patient's level of ADLs: MODERATE ASSIST Patient has working utilities: YES DME: [facility] Follow-up physician's appointment after d/c: PREFERS TO MAKE HER OWN APPT Does patient want to access PORTAL?: Discharge plan HOME. [facility] NIXON PT IS M-W-F DIALYSIS AND [facility] TAKES HER AND BRINGS HER HOME. WE DISCUSSED SNF STAY PT HAS FREQ ADM LATELY. STATES SHE WILL NEED TO TALK TO HER BOYFRIEND FIRST. [facility] WILL FOLLOW UP
--- NOTE | 2016-12-28 10:07 | NUR ---
Spoke with pharmacist at [facility], regarding home med list. States he will fax her list.
[2016-12-28] MEDS ORDERED: STOOL SOFTENER100 MG PO (10:26)
--- NOTE | 2016-12-28 10:31 | NUR ---
Med rec updated from pt prior DC instructions.
--- NOTE | 2016-12-28 11:38 | NUR ---
SW SPOKE WITH PT AND BOYFRIEND ABOUT DISCHARGE PLANS. BOTH AGREED TO SNF AND WOULD LIKE A REFERRAL MADE TO [facility].
[2016-12-28 12:00] VITALS: BP 126/50
--- NOTE | 2016-12-28 15:49 | NUR ---
PHYSICAL THERAPY PAtient evaluated on 5, full evalution to follow. Continue with PT as per plan of care with fall, r/o C- Diff and acute debility precautions. Home with family as prior with complete home health services. PAtient is moderate complexity via chart review, tests and evaluation: 22831. Thank you for this referral. tri Chambers,PT
[2016-12-28 16:00] VITALS: BP 135/53
[2016-12-28 20:00] VITALS: BP 139/51
--- NOTE | 2016-12-28 21:30 | NUR ---
RESTING IN BED WITH EYES CLOSED. RESPIRATIONS EASY. LUNGS DIMINISHED, CLEAR. PULSE OX 96% RA. TRACE BLE EDEMA NOTED. CALL LIGHT WITHIN REACH. NO VOICED COMPLAINTS. BED ALARM MAINTAINED FOR SAFETY
[2016-12-29] VITALS: BP 134/70
--- NOTE | 2016-12-29 | NUR ---
RESTING WITH EYES CLOSED. RESPIRATIONS EASY. VSS. CALL LIGHT WITHIN REACH. BED ALARM MAINTAINED FOR SAFETY
--- NOTE | 2016-12-29 00:02 | NUR ---
MEDICATED WITH TYLENOL PER PRN ORDER FOR TEMP OF 101.1. WILL MONITOR FOR EFFECTIVENESS
--- NOTE | 2016-12-29 01:30 | NUR ---
EARLIER TYLENOL EFFECTIVE, TEMP 99.3 PATIENT DISCORIENTED TO TIME. 1:1 PROVIDED WITH LITTLE EFFECTIVENESS. BED ALARM MAINTAINED FOR SAFETY
[2016-12-29 03:30] VITALS: BP 130/53
--- NOTE | 2016-12-29 03:30 | NUR ---
PATIENT HAD RUN OF TRIGEMINY. PATIENT SLEEPING, AWAKENS EASILY. ASYMPTOMATIC. VSS. WILL CONTINUE TO MONITOR
--- NOTE | 2016-12-29 06:00 | NUR ---
slept throughout night with no distress noted. respirations easy. call light within reach. no voiced complaints this shift
[2016-12-29 07:02] LABS: HEMATOCRIT 28.4 % (37.0-47.0); HEMOGLOBIN 9.2 g/dl (12.0-16.0); MEAN CELL VOLUME 95.9 fl (81.0-99.0); MEAN CORPUSCULAR HGB 31.1 pg (27.0-31.0); MEAN CORPUSCULAR HGB CONC 32.4 g/dl (33.0-37.0); MEAN PLATELET VOLUME 9.3 fl (9.6-12.3); PLATELET COUNT AUTOMATED 159 10*3/uL (130-400); RED BLOOD COUNT 2.96 10*6/uL (4.10-5.10); RED CELL DISTRI WIDTH 14.8 % (0-14.5); WHITE BLOOD COUNT 5.9 10*3/uL (4.8-10.8)
[2016-12-29 07:29] LABS: CREATININE 6.74 mg/dL (0.55-1.02); POTASSIUM 3.1 mmol/L (3.5-5.1)
[2016-12-29 07:33] LABS: PLATELET SUFFICIENCY NORMAL (NORMAL); TOTAL CELLS COUNTED 100 #CELLS
--- NOTE | 2016-12-29 07:50 | NUR ---
Contacted Marianna Davis and faxed referral for [facility]. Waiting on accpetance.
[2016-12-29 08:00] VITALS: BP 148/66
--- NOTE | 2016-12-29 08:00 | NUR ---
RESTING QUIETLY IN BED. STATES LEFT SHOULDER IS HURTING. PT STATES HER BOYFRIEND TOLD HER SHE FEEL AT HOME BEFORE COMING TO HOSPITAL. FISTULA IN LEFT ARM WITH POSITIVE THRILL AND BURIT. WILL CONTINUE TO MONITOR. SEE SHIFT ASSESSMENT.
--- NOTE | 2016-12-29 10:21 | NUR ---
TYLENOL 2 TABS GIVEN TO PT IN DIALYSIS. TEMP ELEVATION OF 100.9.
--- NOTE | 2016-12-29 11:07 | NUR ---
Steffany suárez states there are no available beds at this time. Will contact family for another snf choice. Also checking available beds for [facility]
--- NOTE | 2016-12-29 12:09 | NUR ---
No beds available at [facility] or [facility].
--- NOTE | 2016-12-29 12:23 | NUR ---
Checked with [facility], there are no private beds available at this time. Checking private room availability at [facility] per patients request.
--- NOTE | 2016-12-29 13:22 | NUR ---
PHYSICAL THERAPY Ceci seen this AM for her therapy session. Pt sitting independent on her bed, said that her nurse walked her to the door and back this morning. KATHIE TROY VAMP STRAP IRONER.
--- NOTE | 2016-12-29 13:23 | NUR ---
PHYSICAL THERAPY Back this PM to treat Ceci and Pt having her dyalysis treatment. KATHIE TROY MANAGER FLEET.
--- NOTE | 2016-12-29 13:35 | NUR ---
[facility] has accepted this patient. Hospital exemption completed online in [employer] system. Patient requires three night stay and can go on 12/30/16
--- NOTE | 2016-12-29 14:00 | NUR ---
Patient has been accepted to [facility] but cannot accept her until Sunday12/31/16. 3 night stay will be covered by Sunday. PASS/RR completed online in [email or web address] system.
--- NOTE | 2016-12-29 14:00 | NUR ---
RETURNED TO ROOM FROM DIALYSIS.
--- NOTE | 2016-12-29 14:15 | NUR ---
INFECTIOUS DISEASE PAGED FOR CONSULT.
--- NOTE | 2016-12-29 14:31 | NUR ---
DR SAUNDERS RETURNED CALL AND NOTIFIED OF CONSULT. NEW ORDERS GIVEN.
[2016-12-29 16:00] VITALS: BP 131/57
[2016-12-29 20:00] VITALS: BP 134/74
--- NOTE | 2016-12-29 20:00 | NUR ---
AWAKE & ALERT RESTING IN BED. SKIN PALE, WARM & DRY. PT. VERY [place]. VOICES NO C/O AT THIS TIME; NO DISTRESS NOTED. CALL LIGHT WITHIN REACH.
--- NOTE | 2016-12-29 21:30 | NUR ---
BLOOD SUGAR 133; NO INSULIN REQUIRED.
[2016-12-30] VITALS: BP 126/54
--- NOTE | 2016-12-30 02:28 | NUR ---
MEDICATED WITH NORCO FOR C/O LEFT SHOULDER PAIN.
--- NOTE | 2016-12-30 04:00 | NUR ---
STATES NORCO GIVEN EARLIER EFFECTIVE FOR RELIEF OF PAIN IN LEFT SHOULDER.
--- NOTE | 2016-12-30 06:18 | NUR ---
BLOOD SUAR 110; NO COVERAGE REQUIRED.
[2016-12-30 07:15] LABS: ALBUMIN 2.2 gm/dl (3.1-4.5); CREATININE 4.3 mg/dL (0.55-1.02); POTASSIUM 3.3 mmol/L (3.5-5.1)
--- NOTE | 2016-12-30 07:30 | NUR ---
ASSUMED CARE OF PT AT THIS TIME, RESPS EASY AND NONLABORED WITH NO S/S OF DISTRESS CALL LIGHT WITH IN REACH
[2016-12-30 08:00] VITALS: BP 108/50
[2016-12-30 09:09] LABS: HEMATOCRIT 28.7 % (37.0-47.0); HEMOGLOBIN 9.2 g/dl (12.0-16.0); MEAN CELL VOLUME 96.3 fl (81.0-99.0); MEAN CORPUSCULAR HGB 30.9 pg (27.0-31.0); MEAN CORPUSCULAR HGB CONC 32.1 g/dl (33.0-37.0); MEAN PLATELET VOLUME 10.9 fl (9.6-12.3); PLATELET COUNT AUTOMATED 144 10*3/uL (130-400); RED BLOOD COUNT 2.98 10*6/uL (4.10-5.10); RED CELL DISTRI WIDTH 14.9 % (0-14.5); WHITE BLOOD COUNT 7.2 10*3/uL (4.8-10.8)
[2016-12-30 09:32] LABS: BASOPHILS 1 % (0-1); PLATELET SUFFICIENCY NORMAL (NORMAL); POLYCHROMASIA SLIGHT; TOTAL CELLS COUNTED 100 #CELLS
[2016-12-30 12:00] VITALS: BP 126/46
[2016-12-30 16:00] VITALS: BP 110/58
[2016-12-30 20:00] VITALS: BP 143/61
--- NOTE | 2016-12-30 22:15 | NUR ---
PT ASSESSED AT THIS TIME, ALERT AND ORIENTED WITH SOME CONFUSION. VITALS WNL. NO COMPLAINTS VOICED AT THIS TIME. ALL HS MEDICATION GIVEN PER ORDER. PT CURRENTLY LYING IN BED, ALL SAFETY MEASURES IN PLACE. CALL LIGHT IN REACH.
--- NOTE | 2016-12-30 23:12 | NUR ---
PT C/O LEG PAIN. NORCO GIVEN PO AT THIS TIME. WILL MONITOR FOR EFFECTIVENESS.
[2016-12-31] VITALS: BP 137/64
--- NOTE | 2016-12-31 00:12 | NUR ---
KASHIF EFFECTIVE. PT RESTING IN BED, CALL LIGHT IN REACH.
--- NOTE | 2016-12-31 01:58 | NUR ---
24 HR chart check completed.
--- NOTE | 2016-12-31 04:34 | NUR ---
PT RESTING PEACEFULLY IN BED, NOT AWAKENED PER POLICY. RESPIRATIONS EASY AND UNLABORED. HR 82 PER CM. NO S/S OF DISTRESS.
[2016-12-31 06:39] LABS: HEMATOCRIT 32.1 % (37.0-47.0); HEMOGLOBIN 10.2 g/dl (12.0-16.0); MEAN CELL VOLUME 96.1 fl (81.0-99.0); MEAN CORPUSCULAR HGB 30.5 pg (27.0-31.0); MEAN CORPUSCULAR HGB CONC 31.8 g/dl (33.0-37.0); MEAN PLATELET VOLUME 9.4 fl (9.6-12.3); PLATELET COUNT AUTOMATED 169 10*3/uL (130-400); RED BLOOD COUNT 3.34 10*6/uL (4.10-5.10)
--- NOTE | 2016-12-31 06:45 | NUR ---
PT BLOOD SUGAR OBTAINED. 114, SEE EMAR FOR COVERAGE. NO S/S OF PAIN OR DISTRESS AT THIS TIME. RESPIRATIONS EASY AND UNLABORED.
[2016-12-31 06:59] LABS: PLATELET SUFFICIENCY NORMAL (NORMAL); POLYCHROMASIA SLIGHT; TOTAL CELLS COUNTED 100 #CELLS
[2016-12-31 07:08] LABS: ALBUMIN 2.4 gm/dl (3.1-4.5); CREATININE 6.19 mg/dL (0.55-1.02); PHOSPHOROUS 2.5 mg/dL (2.5-4.9); POTASSIUM 3.7 mmol/L (3.5-5.1)
[2016-12-31 08:00] VITALS: BP 138/50
--- NOTE | 2016-12-31 11:16 | NUR ---
DR GAMA ROUNDED AND NO NEW ORDERS.
[2016-12-31 12:00] VITALS: BP 130/56
--- NOTE | 2016-12-31 15:02 | NUR ---
SITTING UP IN CHAIR AT BEDSIDE. VOICES NO NEEDS.RESPS EASY ON RA.DISCUSSED WITH PT IMPORTANCE OF PARTICIPATING IN HER PERSONAL CARE. PT IS ALERT AND ORIENTED X3. NIKOLSKI. VOICES NO OTHER NEEDS AT THIS TIME. CALL LIGHT IN REACH.
[2016-12-31 16:00] VITALS: BP 127/68
--- NOTE | 2016-12-31 18:39 | NUR ---
Patient resting quietly with no c/o discomfort. Respirations easy and regular. Vital signs stable. No overt distress. CALL LIGHT IN REACH. ERYN TINOCO
[2016-12-31 20:00] VITALS: BP 163/70
[2016-12-31 20:30] VITALS: BP 150/72
[2017-01-01] VITALS: BP 148/64
--- NOTE | 2017-01-01 01:24 | NUR ---
PT RECEIVED TYLENOL FOR MARES IN HIPS RATED 10/10.
[2017-01-01 04:00] VITALS: BP 142/68
--- NOTE | 2017-01-01 05:09 | NUR ---
AFTER MULTIPLE ATTEMPTS, PT STILL REFUSING TO GET BATH BEFORE DIALYSIS
--- NOTE | 2017-01-01 06:39 | NUR ---
DIALYSIS CALLED, THEY HAVE A 4 HOUR TREATMENT AND THEY WILL GET PT FOR HER TREATMENT LATER
[2017-01-01 06:46] LABS: ALBUMIN 2.1 gm/dl (3.1-4.5); CREATININE 7.83 mg/dL (0.55-1.02); PHOSPHOROUS 3.4 mg/dL (2.5-4.9); POTASSIUM 3.5 mmol/L (3.5-5.1)
[2017-01-01] MEDS ORDERED: VANCOCIN125 M1 PO (07:30)
[2017-01-01 08:00] VITALS: BP 143/59
[2017-01-01 10:33] LABS: HEMATOCRIT 31.3 % (37.0-47.0); MEAN CELL VOLUME 95.4 fl (81.0-99.0); MEAN CORPUSCULAR HGB 30.5 pg (27.0-31.0); MEAN CORPUSCULAR HGB CONC 31.9 g/dl (33.0-37.0); MEAN PLATELET VOLUME 9.4 fl (9.6-12.3); PLATELET COUNT AUTOMATED 173 10*3/uL (130-400); RED BLOOD COUNT 3.28 10*6/uL (4.10-5.10); RED CELL DISTRI WIDTH 15.1 % (0-14.5); WHITE BLOOD COUNT 5.4 10*3/uL (4.8-10.8)
--- NOTE | 2017-01-01 10:36 | NUR ---
Discharge instructions reviewed with patient/family. Patient receptive and verbalizes understanding. Follow-up care arranged. Written instructions given to patient/family.TELEMETRY ACCOUNTED FOR AND HEPLOCK REMOVED. ERYN TINOCO
--- NOTE | 2017-01-01 10:37 | NUR ---
REPORT CALLED TO KRISTEN DERAS AND NO ANSWER, WILL REATTEMPT.
[2017-01-01 10:55] LABS: PLATELET SUFFICIENCY NORMAL (NORMAL); TOTAL CELLS COUNTED 100 #CELLS
--- NOTE | 2017-01-01 12:31 | NUR ---
PHYSICAL THERAPY Ceci seen this AM 1:1 for her therapy gait. All transfers were independent no LOB. Gait total 110' X 1, supervision X 1, no LOB and did very well. Pt having C-Diff. KATHIE TROY GLOVE PAIRER.
--- NOTE | 2017-01-02 07:42 | NUR ---
PHYSICAL THERAPY CO-SIGN I approve of the Phyical Therapy notes written above. SWATI MCGEE PT
== END 2017-01-01 10:36 | disposition other institution (70) | DRG 871 ==
LOC: ED 15:37 → EDHOLD 16:48 → 5E 16:48
PROVIDERS: Emergency Medicine; Internal Medicine; Internal Medicine Nephrology; ADMIT Internal Medicine
PROC: 5A1D70Z Performance of Urinary Filtration, Intermittent, Less than 6 Hours Per Day (ICD-10-PCS; principal; 2016-12-29)
DX: A41.9 Sepsis, unspecified organism (principal); E43 Unspecified severe protein-calorie malnutrition; G93.41 Metabolic encephalopathy; A04.72 Enterocolitis due to Clostridium difficile, not specified as recurrent; I13.2 Hypertensive heart and chronic kidney disease with heart failure and with stage 5 chronic kidney disease, or end stage renal disease; N18.6 End stage renal disease; R65.20 Severe sepsis without septic shock; E87.6 Hypokalemia; J32.9 Chronic sinusitis, unspecified; E11.65 Type 2 diabetes mellitus with hyperglycemia; K21.9 Gastro-esophageal reflux disease without esophagitis; M19.90 Unspecified osteoarthritis, unspecified site; I50.9 Heart failure, unspecified; R09.02 Hypoxemia; D50.9 Iron deficiency anemia, unspecified; E78.2 Mixed hyperlipidemia; E03.9 Hypothyroidism, unspecified; E11.22 Type 2 diabetes mellitus with diabetic chronic kidney disease; Z88.4 Allergy status to anesthetic agent; Z79.899 Other long term (current) drug therapy; Z68.29 Body mass index [BMI] 29.0-29.9, adult; Z87.01 Personal history of pneumonia (recurrent); Z99.2 Dependence on renal dialysis; Z98.49 Cataract extraction status, unspecified eye; Z90.49 Acquired absence of other specified parts of digestive tract; Z82.49 Family history of ischemic heart disease and other diseases of the circulatory system; Z80.9 Family history of malignant neoplasm, unspecified; Z83.3 Family history of diabetes mellitus

== ENCOUNTER 2017-01-29 09:36 | Inpatient (IN) | payer MEDICARE, MEDICAID ==
[~2017-01-29] VITALS: Ht 175.2 cm; Wt 92.1 kg
--- NOTE | ~2017-01-29 | PR ---
[place], [place] PROGRESS NOTE NAME: [facility]IDE [facility] [id number] UNIT #: [id number] ROOM: 515 DOCTOR: DARCY GAMA MD BIRTHDATE: [birth year] DOS: SUBJECTIVE: The patient has been admitted to the hospital with colitis with hypokalemia, hyponatremia; normocytic anemia; elevated sedimentation rate; hypochloremia; new onset of atrial fibrillation; C. diff diarrhea; end-stage renal failure, on dialysis; hypomagnesemia; hypertension and right middle lobe pneumonia. The patient is feeling somewhat better today. She denies any difficulty in breathing, but she has some constipation. She has moved her bowels about 4 days ago and having slight pain in the belly, but there is no tenderness in the abdomen. Her CBC showed hemoglobin 7.9 with hematocrit 25. She has chronic anemia due to kidney failure. Comprehensive metabolic profile shows glucose 137, creatinine 3.97, GFR 11. The patient had hemodialysis yesterday, which improved her creatinine level and BUN level. OBJECTIVE: VITAL SIGNS: Her blood pressure is 115/61, pulse 101, respirations 18, temperature 97.4. ABDOMEN: The patient is conscious, alert and oriented and not in distress. DARCY GAMA MD CM:PNTRANS [id number] DARCY GAMA MD 02/03/17 1216 interface
--- NOTE | ~2017-01-29 | CON ---
[place], [place] REPORT OF CONSULTATION NAME: RANDY MCBRIDE UNIT #: [id number] ROOM: 515 DOCTOR: RAMAN SALOMON MD BIRTHDATE: [birth year] DOS: 01/29/2017 HISTORY OF PRESENT ILLNESS: This is a 71-year-old -[place] woman with a history of essential hypertension, chronic kidney disease and she does peritoneal dialysis regularly. She has GERD, hyperlipidemia, type 2 diabetes mellitus and has had C. diff colitis and also chronic arthritis. She has had cholecystectomy and cataract extraction. Dr. Singh was asked to see this patient because of presence of atrial flutter/fibrillation, which she has not had previously. She has had some fluttering or rapid heartbeats on and off for the last week, none yesterday or today. She had become nauseated, vomited and also had had diarrhea and had been receiving treatment for C. diff colitis. She has not had any dizziness, loss of consciousness, chest pain, or any breathing difficulty, no orthopnea or swelling of the lower extremities. HOME MEDICATIONS: Include omeprazole 20 daily, Singulair 10 mg daily, Tradjenta 5 mg daily, levothyroxine 125 mcg daily, gabapentin 100 mg at bedtime, Symbicort 2 puffs b.i.d. and also Proventil HFA 2 puffs q.i.d. She is also receiving p.o. vancomycin for colitis. PHYSICAL EXAMINATION: GENERAL: This reveals a patient who is alert, but she may not be quite clear about her story. VITAL SIGNS: Temperature is normal, pulse is 124 and irregular, blood pressure 139/84. NECK: JVP is normal. AJR is negative. EXTREMITIES: She has no edema in the lower extremities. HEART: Irregular heart rate, but no murmurs or rub. LUNGS: Breath sounds are excellent without any adventitious sounds. ABDOMEN: Not examined. LABORATORY DATA: An ECG done at 1304 hours today demonstrated atrial flutter with a ventricular rate of 114 beats per minute and low voltage in all leads, but severely so in the limb leads. Monitor shows atrial flutter with somewhat fast ventricular rate. Hemoglobin is 9.6 grams. BUN 23, creatinine 7.29, sodium 134, potassium 3.1, magnesium 1.7. This patient had Lexiscan Cardiolite study 6 weeks ago, which showed no ischemia and an echocardiogram earlier this year had demonstrated normal LV systolic function. IMPRESSION: This patient has newly diagnosed atrial flutter with somewhat fast heart rate. Underlying reasons may be chronic kidney disease, hypokalemia and borderline magnesium level. Her CHADS2 score is about 2 and it is probably . [place], [place] REPORT OF CONSULTATION NAME: RANDY MCBRIDE UNIT #: [id number] ROOM: [facility] DOCTOR: RAMAN SALOMON MD BIRTHDATE: [birth year] RECOMMENDATIONS: Add a beta nadege to slow down the heart rate. She should be anticoagulated on long-term basis. Dr. Singh will see her tomorrow and consider further specific management. I would not use an antiarrhythmic immediately since we do not know how long she has had this dysrhythmia. An echocardiogram should be performed to look for any LV systolic dysfunction or even pericardial effusion. I thank you on behalf of Dr. Singh for this consult. RAMAN SALOMON MD CM:CONSTR:REPORT OF CONSULTATION 49 01/29/17 3523 interface SLOAN SINGH MD
--- NOTE | ~2017-01-29 | PR ---
[place], [place] PROGRESS NOTE NAME: RANDY MCBRIDE UNIT #: [id number] ROOM: [facility] DOCTOR: TAN LUNA,STACY Richard BIRTHDATE: [birth year] DOS: 02/03/2017 SUBJECTIVE: The patient was seen and examined. She is awake and alert. She denies shortness of breath, fevers or chills. She is on room air. She is a poor historian. PHYSICAL EXAMINATION: VITAL SIGNS: Temperature 98.0, pulse 105, respiration 20, blood pressure ____. HEENT AND NECK: Shows no JVD. LUNGS: Diminished breath sounds. No wheeze. HEART: Normal S1, S2. No rub, thrill or gallop. ABDOMEN: Soft, nontender. There is no organomegaly. EXTREMITIES: Had no edema. SKIN: Showed no rash. LABORATORY DATA: Hemoglobin 7.9, white count of 3.4, platelets of 119. Sodium 135, potassium 3.5, CO2 of 34, BUN 10, creatinine 3.97, glucose 137, phosphorus 2.5, calcium 8.0, magnesium 1.9, albumin 3.1. ASSESSMENT AND PLAN: 1. End-stage renal disease, on hemodialysis Sunday, Sunday and Sunday. The patient's next dialysis will be on Sunday. 2. Anemia/pancytopenia. Continue to follow counts while in the hospital. We will give Epogen with dialysis. Transfuse as felt needed. 3. Clostridium difficile. On p.o. vancomycin. 4. Hypothyroidism. Continue levothyroxine. From a renal standpoint, the patient is acceptable for discharge. She is to follow up on Sunday to the dialysis clinic. STACY MADDOX MD CM:PNTRANS 1328 02 STACY MADDOX MD 02/03/171702 interface
--- NOTE | ~2017-01-29 | PR ---
[place], [place] PROGRESS NOTE [facility]: [id number] UNIT #: [id number] ROOM: 515 DOCTOR: RAMAN SALOMON MD BIRTHDATE: [birth year] DOS: 01/31/2017 SUBJECTIVE: This is a 71-year-old woman, I saw a couple of days ago. Dr. Singh saw her yesterday. He is a cardiac patient. She has essential hypertension, chronic kidney disease and also had C. diff with the diarrhea. She had atrial flutter. She just does not feel well, but no specific complaints were mentioned. She is not short of breath and has no palpitations or chest pain. She does not move much, seemed to be somewhat sluggish. OBJECTIVE: VITAL SIGNS: Pulse is irregular at 96 beats per minute, blood pressure 120/55. NECK: Normal JVP. CARDIOVASCULAR: Cardiac auscultation irregular heart rate at about 100 beats per minute. LUNGS: Fine. EXTREMITIES: No edema in lower extremities. Monitor shows atrial fibrillation with ventricular rate in the 80s and 90s. IMPRESSION: This patient has atrial fibrillation/flutter. The rate is better controlled. RECOMMENDATIONS: I would prefer to use a beta nadege to control this patient's rate and at a later date, Dr. Singh may want to electrically cardiovert her to normal sinus rhythm if dysrhythmia persists. I saw this patient on behalf of Dr. Singh. RAMAN SALOMON MD CM:PNTRANS [id number] RAMAN SALOMON MD 02/01/17 0019 interface
--- NOTE | ~2017-01-29 | EKG ---
[place], [place] ELECTROCARDIOGRAM REPORT NAME: RANDY MCBRIDE UNIT #: [id number] ROOM: [facility] DOCTOR: RAMAN SALOMON MD BIRTHDATE: [birth year] DOS: 01/29/2017 TIME: 1304 hours. FINDINGS: 1. Atrial fibrillation/flutter with a ventricular rate of 114 beats per minute, either PVC or aberrant conduction is also noted. 2. Low voltage ECG. 3. An abnormal ECG. 4. No previous tracing is available for comparison. RAMAN SALOMON MD CM:EKGRPT:ELECTROCARDIOGRAM REPORT [id number] 16 RAMAN SALOMON MD
--- NOTE | ~2017-01-29 | PR ---
[place], [place] PROGRESS NOTE NAME: RANDY MCBRIDE UNIT #: [id number] ROOM: 515 DOCTOR: SLOAN GATICA MD BIRTHDATE: [birth year] DOS: 01/30/2017 SUBJECTIVE: A 24-hour events noted. Discussed with the nursing staff. The patient has been admitted and Dr. Li saw the patient on behalf of me. OBJECTIVE: VITAL SIGNS: The patient's heart rate is like 110-120s. The patient is on metoprolol 25 daily. She is comfortably sleeping. Blood pressure is 107/60, heart rate is 120. NECK: Supple, no JVD. LUNGS: Diminished breath sounds. HEART: Sounds are irregularly irregular. NEUROLOGIC: Appears to be stable. LABORATORY DATA: Hemoglobin 9.5, hematocrit 29.2, creatinine is 8. REVIEW OF SYSTEMS: Obtained. IMPRESSION: The patient with atrial fibrillation with a slightly rapid ventricular response. Recent stress test approximately 6 weeks ago was normal. Chronic renal failure, hypertension, colitis, hypokalemia. RECOMMENDATIONS: Continue the present care. Monitor the heart rate and blood pressure closely. Probably increase the beta-nadege to twice a day and we will follow up. SLOAN GATICA MD CM:PNTRANS [id number] [id number] SLOAN GATICA MD 01/30/17 1156 interface
[~2017-01-29 09:36] MED LIST changes: +GOOD NEIGHBOR150 MG PO; +METRONIDAZOLE500 M1 PO; +STOOL SOFTENER100 MG PO; +VANCOCIN125 M1 PO
[2017-01-29 09:40] VITALS: BP 109/62
[2017-01-29 10:31] LABS: BASO % 0.1 % (0.0-1.0); EOS # 0.1 10*3/uL (0.0-0.4); EOS % 0.7 % (1.0-4.0); HEMATOCRIT 29.4 % (37.0-47.0); HEMOGLOBIN 9.6 g/dl (12.0-16.0); LYMPH # 1.1 10*3/uL (1.3-4.4); LYMPH % 10.4 % (27.0-41.0); MEAN CORPUSCULAR HGB 29.7 pg (27.0-31.0); MEAN CORPUSCULAR HGB CONC 32.7 g/dl (33.0-37.0); MONO # 0.6 10*3/uL (0.1-1.0); MONO % 5.7 % (3.0-9.0); NEUT # 8.5 10*3/uL (2.3-7.9); NEUT % 82.3 % (47.0-73.0); PLATELET COUNT AUTOMATED 157 10*3/uL (130-400); RED BLOOD COUNT 3.23 10*6/uL (4.10-5.10); RED CELL DISTRI WIDTH 14.1 % (0-14.5); WHITE BLOOD COUNT 10.3 10*3/uL (4.8-10.8)
--- NOTE | 2017-01-29 10:40 | NUR ---
NOTIFIED DR HAINES OF CRITICAL LA 2.4.
[2017-01-29 10:49] LABS: ALBUMIN 2.5 gm/dl (3.1-4.5); POTASSIUM 3.1 mmol/L (3.5-5.1)
[2017-01-29 10:53] LABS: CREATININE 7.29 mg/dL (0.55-1.02); TOTAL PROTEIN 6.7 gm/dL (6.4-8.2)
[2017-01-29 12:30] VITALS: BP 110/60
--- NOTE | 2017-01-29 12:32 | NUR ---
A 71, admitted to , under the services of ELANA Arriaga MD with a diagnosis of COLITIS. Chief complaint is NAUSEA/VOMITTING. Patient arrived via stretcher from ER. Monitor applied. Initial assessment completed. Vital signs taken and recorded. ELANA ARRIAGA MD notified of admission to the unit. Orders received. See assessment for past medical history, medications and allergies. Patient and/or family oriented to unit. [facility] visitation policy reviewed. Clothing/patient valuable form completed. PREET JEFFERS
[2017-01-29] MEDS ORDERED: OMEPRAZOLE20 M2 PO (13:10)
[2017-01-29] MEDS ORDERED: ONDANSETRON4 M1 PO (13:14)
[2017-01-29] MEDS ORDERED: TRAD5TAB1 PO (13:17)
--- NOTE | 2017-01-29 14:12 | NUR ---
LEFT A MESSAGE WITH DR. PISANO'S OFFICE REGARDING CONSULT FOR A-FIB.
--- NOTE | 2017-01-29 15:53 | NUR ---
DR. GARCIA'S SERVICE NOTIFIED OF CONSULT.
[2017-01-29 16:00] VITALS: BP 139/84
--- NOTE | 2017-01-29 17:51 | NUR ---
PATIENTS HEART RATE INCREASED UP TO THE 170'S DURING AMBULATION. PATIENT REMAIN IRREGULAR WITH A HEART RATE BETWEEN 140-154, PATIENT IS ASYMPTOMATIC AND NO C/O OR SIGNS OF DISTRESS.
--- NOTE | 2017-01-29 19:30 | NUR ---
IN TO SEE PT, PT ALERT WITH CONFUSION. RESPIRATIONS EASY AND UNLABORED. NO S/S OF PAIN. NO COMPLAINTS VOICED. HR TACHYCARDIC. NORMOACTIVE BOWEL SOUNDS. ALL NEEDS CURRENTLY MET, ENCOURAGED USE OF CALL LIGHT.
[2017-01-29 20:00] VITALS: BP 141/81
--- NOTE | 2017-01-29 20:31 | NUR ---
TYLENOL 650 MG ADMINISTERED PO FOR FEVER. WILL MONITOR FOR EFFECTIVENESS.
--- NOTE | 2017-01-29 21:30 | NUR ---
TYLENOL EFFECTIVE. FEVER DECREASED AT THIS TIME.
--- NOTE | 2017-01-29 23:07 | NUR ---
24 HR chart check completed.
[2017-01-30] VITALS: BP 107/66
--- NOTE | 2017-01-30 | NUR ---
PT RESTING IN BED, RESPIRATIONS EASY AND UNLABORED. NO S/S OF DISTRESS.
--- NOTE | 2017-01-30 04:00 | NUR ---
PT NOT AWAKENED PER POLICY. RESPIRATIONS EASY AND UNLABORED. NO S/S OF PAIN OR DISTRESS. CALL LIGHT IN REACH, ALL SAFETY MEASURES IN PLACE.
--- NOTE | 2017-01-30 06:00 | NUR ---
AM MEDICATIONS TAKEN WITH EASE.
[2017-01-30 06:20] LABS: BASO % 0.2 % (0.0-1.0); EOS # 0.1 10*3/uL (0.0-0.4); EOS % 1.2 % (1.0-4.0); HEMATOCRIT 29.8 % (37.0-47.0); HEMOGLOBIN 9.5 g/dl (12.0-16.0); LYMPH # 0.7 10*3/uL (1.3-4.4); LYMPH % 5.8 % (27.0-41.0); MEAN CELL VOLUME 93.4 fl (81.0-99.0); MEAN CORPUSCULAR HGB 29.8 pg (27.0-31.0); MEAN CORPUSCULAR HGB CONC 31.9 g/dl (33.0-37.0); MEAN PLATELET VOLUME 10.3 fl (9.6-12.3); MONO # 0.4 10*3/uL (0.1-1.0); MONO % 3.4 % (3.0-9.0); NEUT # 10.8 10*3/uL (2.3-7.9); NEUT % 88.7 % (47.0-73.0); PLATELET COUNT AUTOMATED 164 10*3/uL (130-400); RED BLOOD COUNT 3.19 10*6/uL (4.10-5.10); RED CELL DISTRI WIDTH 14.1 % (0-14.5); WHITE BLOOD COUNT 12.1 10*3/uL (4.8-10.8)
[2017-01-30 06:33] LABS: INTERNATIONAL NORM RATIO 1.2 (2.0-3.5)
[2017-01-30 06:39] LABS: ALBUMIN 2.4 gm/dl (3.1-4.5); CREATININE 8.01 mg/dL (0.55-1.02); PHOSPHOROUS 3.2 mg/dL (2.5-4.9); POTASSIUM 3.3 mmol/L (3.5-5.1); TOTAL PROTEIN 6.4 gm/dL (6.4-8.2)
[2017-01-30 06:46] LABS: THYROID STIM HORMONE (HS) 0.713 uIU/ml (0.358-4.75)
[2017-01-30 07:45] LABS: VITAMIN D, 25-HYDROXY 41.4 ng/mL (30-100)
[2017-01-30 08:00] VITALS: BP 118/76
--- NOTE | 2017-01-30 08:30 | NUR ---
Spaghetti Press Helper in to talk to patient. Patient states lives at HOME with HER BOYFRIEND-WHO IS PT HERE NOW WELL AND AT [facility] FOR SNF STAY. There are 0 steps in the home. Physician: DR KIMBROUGH Pharmacy: [facility] Home health services: NONE Patient's level of ADLs: MINIMAL ASSIST Patient has working utilities: YES DME: [employer] Follow-up physician's appointment after d/c: PREFERS TO MAKE HER OWN APPT Does patient want to access PORTAL?: Discharge plan . KAIA NIXON PT IS M-W-F DIALYSIS. [facility] TAKES HER TO AND FROM THIS. REQUESTS SNF STAY AT [facility]. DC DIRECTOR PUBLIC POLICY WILL MAKE REFERRAL
--- NOTE | 2017-01-30 10:52 | NUR ---
CALLED DR GARIBAY OFFICE REGARDING NEW PT CONSULT. WAITING STEAM FINISHER BACK
[2017-01-30 12:00] VITALS: BP 117/72
--- NOTE | 2017-01-30 12:22 | NUR ---
PHYSICAL THERAPY PAtient with multiple nurse at this time. Eileen Chambers,PT
--- NOTE | 2017-01-30 13:48 | NUR ---
PHYSICAL THERAPY PAtient with multiple nurses and multiple doctors at this time. Eileen Chambers,PT
--- NOTE | 2017-01-30 14:05 | NUR ---
Patient accepted to [facility], since she has been to their facility within the past 30 days she does not require a 3 night stay, per roxann at [facility]. Patient can go when medically stable
--- NOTE | 2017-01-30 15:55 | NUR ---
CALLED LAB AND INQUIRED ABOUT ORDER FOR STAT BLOOD CULTURE. STAFF STATED SOMEONE WILL BE UP TO DRAW PATIENT SHAHANA.
[2017-01-30 16:00] VITALS: BP 101/42
--- NOTE | 2017-01-30 16:57 | NUR ---
CALLED AGAIN ABOUT STAT ORDER FOR BLOOD CULTURE. STAFF AGAIN STATED SOMEONE WILL BE UP.
--- NOTE | 2017-01-30 17:30 | NUR ---
PATIENT IS RESTING IN BED. PATIENT IS AWAKE AND ALERT, BUT BECOMES CONFUSED ON OCCASION. PATIENT HAS A CARDIZEM DRIP INFUSION. AFTER INITIAL ASSESSMENT, PATIENT ACCIDENTALLY PULLED OUT IV SITE IN THE RIGHT AC. A NEW SITE WAS STARTED IN THE RIGHT FOREARM AND CARDIZEM DRIP WAS RESUMED. PATIENT HAS PAIN IN THE LOWER EXTREMITIES THAT HAVE BECOME SWOLLEN AND EDEMATOUS. ENCOURAGED TO ELEVATED LEGS AND REFUSED LYSSA HOSE. PATIENT DENIES ANY SOB UPON ASSESSMENT. PATIENT IS AMBULATORY WITHOUT ASSIST. PATIENT WAS PLEASANT AND COOPERATIVE DURING ASSESSMENT. CONTACT ISOLATION FOR C-DIFF. PATIENT IS NEW ONSET AFIB AND MONITORED, HOB ELEVATED, CALL LIGHT WITHIN REACH. SEE ASSESSMENT.
--- NOTE | 2017-01-30 18:40 | NUR ---
CALL OUT TO DR SAUNDERS WITH ID REGARDING PTS ELEVATED TEMP.
--- NOTE | 2017-01-30 18:42 | NUR ---
DR MORGAN RETURNED MY CALL. NO NEW ORDERS
[2017-01-30 20:00] VITALS: BP 95/52
--- NOTE | 2017-01-30 21:50 | NUR ---
PATIENT GIVEN TYLENOL FOR LOWER LEG PAIN RATED A 5/10. LEGS ARE SWOLLEN AND 2+ EDEMA. PATIENT ENCOURAGED TO ELEVATE LEGS. PATIENT REFUSED LYSSA HOSE. WILL CONTINUE TO MONITOR AND REASSESS.
[2017-01-31] VITALS: BP 101/48
--- NOTE | 2017-01-31 01:01 | NUR ---
RESTING IN BED WITH EYES OPEN. DENIES COMPLAINTS OF PAIN OR DISCOMFORT. WILL CONTINUE TO MONITOR. CALL LIGHT IN REACH.
--- NOTE | 2017-01-31 06:17 | NUR ---
MEDICATED WITH TYLENOL FOR COMPLAINTS OF LEG PAIN. WILL MONITOR FOR EFFECTIVENESS. CALL LIGHT IN REACH.
[2017-01-31 07:47] LABS: BASO % 0.2 % (0.0-1.0); EOS # 0.1 10*3/uL (0.0-0.4); EOS % 0.6 % (1.0-4.0); HEMATOCRIT 25.8 % (37.0-47.0); HEMOGLOBIN 8.4 g/dl (12.0-16.0); LYMPH # 0.7 10*3/uL (1.3-4.4); LYMPH % 5.8 % (27.0-41.0); MEAN CELL VOLUME 91.2 fl (81.0-99.0); MEAN CORPUSCULAR HGB 29.7 pg (27.0-31.0); MEAN CORPUSCULAR HGB CONC 32.6 g/dl (33.0-37.0); MEAN PLATELET VOLUME 10.4 fl (9.6-12.3); MONO # 0.3 10*3/uL (0.1-1.0); MONO % 2.4 % (3.0-9.0); NEUT # 11.1 10*3/uL (2.3-7.9); NEUT % 89.9 % (47.0-73.0); PLATELET COUNT AUTOMATED 148 10*3/uL (130-400); RED BLOOD COUNT 2.83 10*6/uL (4.10-5.10); RED CELL DISTRI WIDTH 14.3 % (0-14.5); WHITE BLOOD COUNT 12.3 10*3/uL (4.8-10.8)
[2017-01-31 08:10] LABS: ALBUMIN 2.3 gm/dl (3.1-4.5); CREATININE 9.65 mg/dL (0.55-1.02); PHOSPHOROUS 3.6 mg/dL (2.5-4.9); POTASSIUM 4.1 mmol/L (3.5-5.1)
--- NOTE | 2017-01-31 10:50 | NUR ---
DR NEGRETE AWARE PT CAN GO TO [facility] SUNDAY IF STABLE FOR DC. CANNOT BE DC ON DIALYSIS DAYS.
[2017-01-31 13:00] VITALS: BP 122/50
--- NOTE | 2017-01-31 15:07 | NUR ---
PHYSICAL THERAPY PAtient evaluated on 5, full evaluation to follow. Continue with PT as per plan of care with fall, mod to max (A) , C Diff and acute debility precautions. Will require SNF for impaired mobilty. PAtient is mdoerate complexity via chart review, tests and evaluation 98612. thank you for this referral. Eileen Baker,PT
[2017-01-31 16:00] VITALS: BP 120/55
--- NOTE | 2017-01-31 17:04 | NUR ---
PER DR SALAS THIS NURSE CALLED DR VÁZQEUZ TO INFORM HER THAT PT HAS DEVELOPED PNEUMONIA. WAITING SHELLFISH MANAGER BACK
--- NOTE | 2017-01-31 17:23 | NUR ---
DR VÁZQUEZ CALLED. ORDERS RECEIVED. DR VELASQUEZ INFORMED OF ADDITIONAL MEDICATIONS FOR PNEUMONIA
[2017-01-31 20:00] VITALS: BP 102/43; BP 110/52
--- NOTE | 2017-01-31 20:00 | NUR ---
BATHROOM ALARM RINGING. PATIENT NEEDING ASSISTANCE TO RETURN TO BED FROM HAVING BM. PATIENT ATTEMPTED TO EXIT BR WITHOUT WASHING HANDS. STOPPED PATIENT AND EDUCATED REGARDING THE IMPORTANCE OF PROPER HANDWASHING ESPECIALLY WITH HAVING A C-DIF INFECTION. PATIENT STATES "YEAH, I KNOW."
--- NOTE | 2017-01-31 20:38 | NUR ---
PATIENT DUE A 1999 MAXIPIME, MED NOT AVAILABLE. PHARMACY NOTIFIED AND STATES TECH WILL BRING TO FLOOR IN 10 MINS.
--- NOTE | 2017-01-31 21:00 | NUR ---
SITTING AT BEDSIDE, IV PULLED OUT AND BLOOD DRIPPING ALL OVER BED AND FLOOR. PATIENT AND LINENS CHANGED. NEW IV ACCESS OBTAINED
--- NOTE | 2017-01-31 21:50 | NUR ---
REQUESTED AND RECEIVED NORCO PER PRN ORDER FOR COMPLAINTS OF LEFT HIP AND BACK PAIN RATING A 10. ALSO MEDICATED WITH RESTORIL TO ASSIST WITH SLEEP. CALL LIGHT WITHIN REACH. WILL MONITOR FOR EFFECTIVENESS
[2017-01-31 22:00] VITALS: BP 100/50
--- NOTE | 2017-01-31 23:00 | NUR ---
EARLIER MEDS EFFECTIVE. SLEEPING. REPSIRATIONS EASY. HR 70'S, CARDIZEN DRIP OFF AT THIS TIME. WILL MONITOR
[2017-02-01] VITALS (7 sets, daily range): BP systolic 80–120; BP diastolic 40–62
--- NOTE | 2017-02-01 01:00 | NUR ---
AWAKE, SITTING AT BEDSIDE. NO DISTRESS NOTED. RESPIRATIONS EASY.
--- NOTE | 2017-02-01 05:15 | NUR ---
REQUESTED AND RECEIVED NORCO PER PRN ORDER FOR COMPLAINTS OF CHRONIC BACK AND HIP PAIN RATING A 6. CALL LIGHT WITHIN REACH. CLEMENTE HAWK
--- NOTE | 2017-02-01 06:00 | NUR ---
SLEPT THROUGHOUT NIGHT WITH NO DISTRESS NOTED. RESPIRATIONS EASY. CARDIZEM DRIP REMAINS OFF AT BEDSIDE, HR 70'S. CALL LIGHT WITHIN REACH. NO VOICED COMPLAINTS
--- NOTE | 2017-02-01 06:10 | NUR ---
STATES RELIEF FROM EARLIER [place]
[2017-02-01 07:38] LABS: BASO % 0.2 % (0.0-1.0); EOS # 0.1 10*3/uL (0.0-0.4); EOS % 1.6 % (1.0-4.0); HEMATOCRIT 26.3 % (37.0-47.0); HEMOGLOBIN 8.3 g/dl (12.0-16.0); LYMPH # 0.9 10*3/uL (1.3-4.4); LYMPH % 15.5 % (27.0-41.0); MEAN CORPUSCULAR HGB 28.7 pg (27.0-31.0); MEAN CORPUSCULAR HGB CONC 31.6 g/dl (33.0-37.0); MEAN PLATELET VOLUME 10.8 fl (9.6-12.3); MONO # 0.3 10*3/uL (0.1-1.0); MONO % 5.3 % (3.0-9.0); NEUT # 4.2 10*3/uL (2.3-7.9); NEUT % 75.9 % (47.0-73.0); PLATELET COUNT AUTOMATED 149 10*3/uL (130-400); RED BLOOD COUNT 2.89 10*6/uL (4.10-5.10); RED CELL DISTRI WIDTH 14.2 % (0-14.5); WHITE BLOOD COUNT 5.5 10*3/uL (4.8-10.8)
[2017-02-01 08:07] LABS: POTASSIUM 3.2 mmol/L (3.5-5.1)
[2017-02-01 08:13] LABS: ALBUMIN 2.3 gm/dl (3.1-4.5); CREATININE 5.19 mg/dL (0.55-1.02); PHOSPHOROUS 3.7 mg/dL (2.5-4.9); TOTAL PROTEIN 6.4 gm/dL (6.4-8.2)
--- NOTE | 2017-02-01 08:23 | NUR ---
PT RESTING IN CHAIR. NO DISTRESS NOTED. CALL LIGHT WITHIN REACH./ WILL MONITOR
--- NOTE | 2017-02-01 09:51 | NUR ---
SPOKE WITH DR JOSE DANIEL HAINES REGARDING PT LOW BP. NEW ORDERS RECIEVED
--- NOTE | 2017-02-01 09:58 | NUR ---
PHYSICAL THERAPY Ceci was seen this AM 1:1 for her therapy gait and needing much verbal cueing. Pt having C-dif, slow processing. Transfer sit/stand CGA X 1, gait 22' X 2, CGA X 1, into pt's bathroom and back to her bedside chair, call light, no complaints, no LOB cueing for safety and did well, big change. KATHIE TROY LARD MIXER.
--- NOTE | 2017-02-01 10:06 | NUR ---
SPOKE WITH DR GATICA REGARDING CARDIZEM GTT TURNED OFF FOR HR 70S AND LOW BP NEW ORDERS RECIEVED
--- NOTE | 2017-02-01 12:57 | NUR ---
IV started right wrist with #22 angiocath after 3 attempts. The IV site was prepped with Chloraprep. Heparin lock attached. Sterile dressing applied. Patient tolerated precedure well. Procedure performed according to [facility] policy & procedure. FRANKLIN VELA
--- NOTE | 2017-02-01 20:00 | NUR ---
AMBULATING TO AND FROM BATHROOM. REMINDED OF PROPER HAND HYGIENE D/T C-DIF.
--- NOTE | 2017-02-01 20:30 | NUR ---
RESTING IN BED. RESPIRATIONS EASY. LUNGS DIMINISHED. PULSE OX 96% RA. FISTULA NOTED TO LEFT ARM, +THRILL AND BRUIT. TRACE BLE EDEMA. CALL LIGHT WITHIN REACH. NO VOICED COMPLAINTS
--- NOTE | 2017-02-01 20:54 | NUR ---
REQUESTED AND RECEIVED NORCO PER PRN ORDER FOR C/O BACK AND LEFT HIP RATING A 10. ALSO MEDICATED WITH RESTORIL TO ASSIST WITH SLEEP. CALL LIGHT WITHIN REACH. WILL MONITOR
--- NOTE | 2017-02-01 23:00 | NUR ---
EARLIER MEDS EFFECTIVE. SLEEPING. RESPIRATIONS EASY. CALL LIGHT WITHIN REACH
[2017-02-02] VITALS: BP 114/73
--- NOTE | 2017-02-02 01:00 | NUR ---
CONTINUES TO SLEEP. NO DISTRESS NOTED.
[2017-02-02 06:00] VITALS: BP 112/72
--- NOTE | 2017-02-02 06:37 | NUR ---
REQUESTED AND RECEIVED NORCO PER PRN ORDER FOR COMPLAINTS OF BACK AND LEFT HIP PAIN RATING AN 8. CALL LIGHT WITHIN REACH. WILL MONITOR FOR EFFECTIVENESS
[2017-02-02 07:32] LABS: EOS # 0.1 10*3/uL (0.0-0.4); EOS % 1.6 % (1.0-4.0); HEMATOCRIT 27.2 % (37.0-47.0); HEMOGLOBIN 8.7 g/dl (12.0-16.0); LYMPH # 0.8 10*3/uL (1.3-4.4); LYMPH % 19.8 % (27.0-41.0); MEAN CELL VOLUME 91.3 fl (81.0-99.0); MEAN CORPUSCULAR HGB 29.2 pg (27.0-31.0); MEAN PLATELET VOLUME 10.8 fl (9.6-12.3); MONO # 0.4 10*3/uL (0.1-1.0); MONO % 8.7 % (3.0-9.0); NEUT # 2.9 10*3/uL (2.3-7.9); PLATELET COUNT AUTOMATED 151 10*3/uL (130-400); RED BLOOD COUNT 2.98 10*6/uL (4.10-5.10); RED CELL DISTRI WIDTH 14.2 % (0-14.5); WHITE BLOOD COUNT 4.3 10*3/uL (4.8-10.8)
[2017-02-02 08:00] VITALS: BP 104/55
[2017-02-02 08:00] LABS: ALBUMIN 3.1 gm/dl (3.1-4.5); CREATININE 6.33 mg/dL (0.55-1.02); PHOSPHOROUS 3.6 mg/dL (2.5-4.9); POTASSIUM 3.5 mmol/L (3.5-5.1); TOTAL PROTEIN 7.4 gm/dL (6.4-8.2)
--- NOTE | 2017-02-02 10:00 | NUR ---
PT RESTING QUIETLY IN BED, IN DIALYSIS
[2017-02-02] MEDS ORDERED: METOPROLOL SUCC25 M2 PO (10:06)
[2017-02-02] MEDS ORDERED: ELIQUIS5 M1 PO (10:06)
[2017-02-02] MEDS ORDERED: VANCOCIN125 M1 PO (10:07)
--- NOTE | 2017-02-02 10:11 | NUR ---
PHYSICAL THERAPY Patient is in dialysis at the moment . Will check back later. ANKITA SU SEVERITY OF ILLNESS COORDINATOR
--- NOTE | 2017-02-02 13:18 | NUR ---
PHYSICAL THERAPY Patient was still in dialysis at 12:50 pm. ANKITA SU PTA
--- NOTE | 2017-02-02 15:00 | NUR ---
ASSUMED CARE OF PT AT THIS TIME, RESP EASY AND NONLABORED WITH NO S/S OF DISTRESS CALL LIGHT WITH IN REACH
[2017-02-02] MEDS ORDERED: DOXYCYCLINE100 M3 PO (16:10)
[2017-02-02 16:52] VITALS: BP 95/48
--- NOTE | 2017-02-02 19:57 | NUR ---
PT. IS CURRENTLY RESTING IN BED AT THIS TIME. NO SXS OF DISTRESS OR CONCERNS VOICED AT THIS TIME. PT. HAS HOB ELEVATED, AND CALL LIGHT WITHIN REACH. BED IS LOW AND WHEELS ARE LOCKED, SEE SHIFT ASSESSMENT.
[2017-02-02 20:00] VITALS: BP 118/57
[2017-02-03] VITALS: BP 114/69
--- NOTE | 2017-02-03 01:15 | NUR ---
PRN NORCO AND RESTORIL GIVEN FOR PT. C/O BACK PAIN AND RESTLESSNESS, CALL LIGHT WITHIN REACH, WILL MONITOR EFFECT.
--- NOTE | 2017-02-03 02:00 | NUR ---
PRN RESTORIL AND NORCO SEEM EFFECTIVE, PT. IS RESTING COMFORTABLY WITH RESPERS EASY AND REGULAR. CALL LIGHT IS WITHIN REACH.
[2017-02-03 06:07] LABS: BASO % 0.3 % (0.0-1.0); EOS % 0.9 % (1.0-4.0); HEMOGLOBIN 7.9 g/dl (12.0-16.0); LYMPH # 0.8 10*3/uL (1.3-4.4); LYMPH % 22.3 % (27.0-41.0); MEAN CELL VOLUME 93.3 fl (81.0-99.0); MEAN CORPUSCULAR HGB 29.5 pg (27.0-31.0); MEAN CORPUSCULAR HGB CONC 31.6 g/dl (33.0-37.0); MEAN PLATELET VOLUME 10.7 fl (9.6-12.3); MONO # 0.4 10*3/uL (0.1-1.0); MONO % 11.3 % (3.0-9.0); NEUT # 2.1 10*3/uL (2.3-7.9); NEUT % 63.4 % (47.0-73.0); PLATELET COUNT AUTOMATED 119 10*3/uL (130-400); RED BLOOD COUNT 2.68 10*6/uL (4.10-5.10); RED CELL DISTRI WIDTH 14.1 % (0-14.5); WHITE BLOOD COUNT 3.4 10*3/uL (4.8-10.8)
[2017-02-03 06:29] LABS: ALBUMIN 3.1 gm/dl (3.1-4.5); CREATININE 3.97 mg/dL (0.55-1.02); PHOSPHOROUS 2.5 mg/dL (2.5-4.9); POTASSIUM 3.5 mmol/L (3.5-5.1); TOTAL PROTEIN 6.6 gm/dL (6.4-8.2)
[2017-02-03 08:00] VITALS: BP 115/61
[2017-02-03 12:00] VITALS: BP 131/50
--- NOTE | 2017-02-03 13:02 | NUR ---
REPORT GIVEN TO KALI @ [facility].
--- NOTE | 2017-02-03 15:00 | NUR ---
Discharge instructions reviewed with patient/family. Patient receptive and verbalizes understanding. Follow-up care arranged. Written instructions given to patient/family. Patient transported by [facility] ambulance to [facility]. Report already given, cancer center director discontinued and heplock removed. BIENVENIDO LOW
== END 2017-02-03 15:15 | disposition other institution (70) | DRG 371 ==
LOC: ED 09:36 → 5E 11:37 → EDHOLD 11:37 → 5E 11:43
PROVIDERS: Emergency Medicine; Hospitalist; Internal Medicine; ADMIT Internal Medicine
PROC: 5A1D70Z Performance of Urinary Filtration, Intermittent, Less than 6 Hours Per Day (ICD-10-PCS; principal; 2017-01-31)
DX: A04.72 Enterocolitis due to Clostridium difficile, not specified as recurrent (principal); N18.6 End stage renal disease; I13.2 Hypertensive heart and chronic kidney disease with heart failure and with stage 5 chronic kidney disease, or end stage renal disease; D61.818 Other pancytopenia; J18.1 Lobar pneumonia, unspecified organism; E11.22 Type 2 diabetes mellitus with diabetic chronic kidney disease; I48.91 Unspecified atrial fibrillation; I95.9 Hypotension, unspecified; E11.65 Type 2 diabetes mellitus with hyperglycemia; E87.8 Other disorders of electrolyte and fluid balance, not elsewhere classified; I48.92 Unspecified atrial flutter; E87.1 Hypo-osmolality and hyponatremia; E83.42 Hypomagnesemia; I50.9 Heart failure, unspecified; K21.9 Gastro-esophageal reflux disease without esophagitis; M19.90 Unspecified osteoarthritis, unspecified site; D63.1 Anemia in chronic kidney disease; K59.00 Constipation, unspecified; E87.6 Hypokalemia; E03.9 Hypothyroidism, unspecified; E78.5 Hyperlipidemia, unspecified; Z98.42 Cataract extraction status, left eye; Z98.41 Cataract extraction status, right eye; Z90.49 Acquired absence of other specified parts of digestive tract; Z88.4 Allergy status to anesthetic agent; Z79.899 Other long term (current) drug therapy; Z99.2 Dependence on renal dialysis; Z82.49 Family history of ischemic heart disease and other diseases of the circulatory system; Z82.5 Family history of asthma and other chronic lower respiratory diseases; Z80.8 Family history of malignant neoplasm of other organs or systems; Y95 Nosocomial condition

== ENCOUNTER 2017-02-21 03:32 | Inpatient (IN) | payer MEDICARE, MEDICAID ==
[~2017-02-21] VITALS: Ht 175.2 cm; Wt 90.4 kg
[2017-02-21] VITALS (27 sets, daily range): BP systolic 101–133; BP diastolic 49–83
--- NOTE | ~2017-02-21 | EKG ---
[place], [place] ELECTROCARDIOGRAM REPORT NAME: RANDY MCBRIDE UNIT #: [id number] ROOM: [facility] DOCTOR: ELANA KIMBROUGH MD BIRTHDATE: [birth year] DOS: RATE AND RHYTHM: Atrial fibrillation at 125 beats per minute. [place] interval is undetermined. QRS duration 100 milliseconds, corrected QT interval 507 milliseconds. QRS axis is 191. IMPRESSION: Atrial fibrillation with rapid ventricular rate. ELANA KIMBROUGH MD CM:EKGRPT:ELECTROCARDIOGRAM REPORT [id number] ELANA KIMBROUGH MD
--- NOTE | ~2017-02-21 | EKG ---
[place], [place] ELECTROCARDIOGRAM REPORT NAME: RANDY MCBRIDE UNIT #: [id number] ROOM: [facility] DOCTOR: ELANA KIMBROUGH MD BIRTHDATE: [birth year] DOS: 02/21/2017 ADDENDUM Time was 3:58:27. DATE: 02/21/2017 ELANA KIMBROUGH MD CM:EKGRPT:ELECTROCARDIOGRAM REPORT [id number] [id number] ELANA KIMBROUGH MD
--- NOTE | ~2017-02-21 | CON ---
[place], [place] REPORT OF CONSULTATION [id number] UNIT #: [id number] ROOM: [facility] DOCTOR: SLOAN GATICA MD BIRTHDATE: [birth year] DOS: 02/21/2017 HISTORY OF PRESENT ILLNESS: The patient is very well known to me. The patient used to see me in my office, was seen by Dr. Li, who was covering me last time. Basically, we were consulted because of rapid atrial fibrillation. The patient is a very poor historian. The patient was having significant palpitation. The patient is significantly hyperkalemic, heart rate was 160s with rapid heart rate and the patient's blood pressure was also on the lower side, did not have any chest discomfort. Right now, the heart rate is about 100. She is being started on the Cardizem drip. Denies any chest discomfort. Blood pressure is 90/60 with rapid atrial fibrillation. The patient was here recently for the same problem. She has persistent atrial fibrillation and left ventricular dysfunction. PAST MEDICAL HISTORY: Chronic renal failure, ischemic cardiomyopathy, hypertension, atrial fibrillation, history of C. difficile, end-stage renal disease, hypertension, hypotension, hyponatremia, electrolyte abnormalities, hypothyroidism, pneumonia, diabetes mellitus. PAST SURGICAL HISTORY: Previous cardiac catheterization. We will try to get the reports from [place]. 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 Also, has fistulas placement. SOCIAL HISTORY: Denies any alcohol or drug abuse. FAMILY HISTORY: History of coronary artery disease and throat cancer. MEDICATIONS: Includes metoprolol, Eliquis, levothyroxine, vancomycin. REVIEW OF SYSTEMS: Somewhat limited. The patient is in the intensive care unit. Heart rate is about 110-120 with AFib. HEENT: Denies any visual disturbances or hearing problems. CARDIOVASCULAR: Denies any chest discomfort. GASTROINTESTINAL: Positive for recent colitis. GENITOURINARY: No dysuria or hematuria. NEUROLOGIC: No syncope. PHYSICAL EXAMINATION: GENERAL: Appears nontoxic. VITAL SIGNS: Heart rate is about 120-130 and blood pressure is 90/60. HEENT: Unremarkable. NECK: Supple, no JVD. LUNGS: Diminished breath sounds. HEART: Sounds are irregularly irregular. ABDOMEN: Soft, nontender. NEUROLOGICAL: Stable. LABORATORY DATA: Shows hemoglobin 9.2, hematocrit 30.2, potassium is 7, sodium [place], [place] REPORT OF CONSULTATION NAME: RANDY MCBRIDE UNIT #: [id number] ROOM: [facility] DOCTOR: SLOAN GATICA MD BIRTHDATE: [birth year] 131. Troponins are negative. IMPRESSION: The patient with persistent atrial fibrillation, ischemic cardiomyopathy, hypertension, noncompliance, hypotension, chronic renal failure and hyperkalemia. RECOMMENDATIONS: The patient should start the hyperkalemia protocol with insulin dextrose as per Nephrology. The patient for dialysis. Start the patient on Cardizem drip. Continue the apixaban as ordered. We will try to obtain the echocardiogram if it is not done in 6 months and I will follow up. SLOAN GATICA MD CM:CONSTR:REPORT OF CONSULTATION 8 02/21/17901 interface
[~2017-02-21 03:32] MED LIST changes: +DOXYCYCLINE100 M3 PO; +ELIQUIS5 M1 PO; +METOPROLOL SUCC25 M2 PO; +ONDANSETRON4 M1 PO
[2017-02-21 04:06] LABS: BASO % 0.4 % (0.0-1.0); EOS # 0.1 10*3/uL (0.0-0.4); EOS % 1.5 % (1.0-4.0); HEMATOCRIT 29.6 % (37.0-47.0); HEMOGLOBIN 9.1 g/dl (12.0-16.0); LYMPH # 1.1 10*3/uL (1.3-4.4); LYMPH % 22.9 % (27.0-41.0); MEAN CELL VOLUME 96.7 fl (81.0-99.0); MEAN CORPUSCULAR HGB 29.7 pg (27.0-31.0); MEAN CORPUSCULAR HGB CONC 30.7 g/dl (33.0-37.0); MEAN PLATELET VOLUME 11.4 fl (9.6-12.3); MONO # 0.4 10*3/uL (0.1-1.0); MONO % 8.7 % (3.0-9.0); NEUT # 3.1 10*3/uL (2.3-7.9); NEUT % 66.1 % (47.0-73.0); PLATELET COUNT AUTOMATED 112 10*3/uL (130-400); RED BLOOD COUNT 3.06 10*6/uL (4.10-5.10); RED CELL DISTRI WIDTH 17.6 % (0-14.5); WHITE BLOOD COUNT 4.7 10*3/uL (4.8-10.8)
[2017-02-21 04:15] LABS: INTERNATIONAL NORM RATIO 1.2 (2.0-3.5)
[2017-02-21 04:28] LABS: ALBUMIN 3.2 gm/dl (3.1-4.5); ALKALINE PHOSPHATASE 203 U/L (45-117); BUN 32 mg/dl (7-24); CHLORIDE 97 mmol/L (98-107); SGOT/AST 68 IU/L (3-35); SGPT/ALT 56 U/L (12-78); SODIUM 131 mmol/L (136-145); TOTAL PROTEIN 7.3 gm/dL (6.4-8.2)
[2017-02-21 04:32] LABS: POTASSIUM 7.6 mmol/L (3.5-5.1); TROPONIN I < 0.015 ng/ml (<0.045)
[2017-02-21] MEDS ORDERED: KLOR-CON M2020 ME1 PO (05:25)
[2017-02-21] MEDS ORDERED: MILK OF MA400 MG/5 M PO (05:26)
[2017-02-21 06:43] LABS: BASO % 0.2 % (0.0-1.0); HEMATOCRIT 30.5 % (37.0-47.0); HEMOGLOBIN 9.2 g/dl (12.0-16.0); LYMPH % 23.5 % (27.0-41.0); MEAN CELL VOLUME 96.8 fl (81.0-99.0); MEAN CORPUSCULAR HGB 29.2 pg (27.0-31.0); MEAN CORPUSCULAR HGB CONC 30.2 g/dl (33.0-37.0); MEAN PLATELET VOLUME 11.4 fl (9.6-12.3); MONO # 0.4 10*3/uL (0.1-1.0); MONO % 8.6 % (3.0-9.0); NEUT # 2.7 10*3/uL (2.3-7.9); NEUT % 66.2 % (47.0-73.0); PLATELET COUNT AUTOMATED 110 10*3/uL (130-400); RED BLOOD COUNT 3.15 10*6/uL (4.10-5.10); RED CELL DISTRI WIDTH 17.6 % (0-14.5); WHITE BLOOD COUNT 4.1 10*3/uL (4.8-10.8)
[2017-02-21 06:54] LABS: ALBUMIN 3.3 gm/dl (3.1-4.5); CREATININE 7.27 mg/dL (0.55-1.02); TOTAL PROTEIN 7.2 gm/dL (6.4-8.2)
[2017-02-21 06:59] LABS: THYROID STIM HORMONE (HS) 2.4 uIU/ml (0.358-4.75)
[2017-02-21 07:05] LABS: POTASSIUM 6.8 mmol/L (3.5-5.1)
[2017-02-21 07:19] LABS: INTERNATIONAL NORM RATIO 1.2 (2.0-3.5)
[2017-02-21 08:09] LABS: VITAMIN D, 25-HYDROXY 43.7 ng/mL (30-100)
[2017-02-22] VITALS: BP 108/58
[2017-02-22 08:00] VITALS: BP 92/42
[2017-02-22 08:07] LABS: BASO % 0.7 % (0.0-1.0); EOS % 0.4 % (1.0-4.0); HEMATOCRIT 26.7 % (37.0-47.0); HEMOGLOBIN 8.4 g/dl (12.0-16.0); LYMPH # 0.5 10*3/uL (1.3-4.4); LYMPH % 18.6 % (27.0-41.0); MEAN CORPUSCULAR HGB 29.5 pg (27.0-31.0); MEAN CORPUSCULAR HGB CONC 31.5 g/dl (33.0-37.0); MEAN PLATELET VOLUME 11.3 fl (9.6-12.3); MONO # 0.2 10*3/uL (0.1-1.0); MONO % 8.2 % (3.0-9.0); NEUT # 1.9 10*3/uL (2.3-7.9); NEUT % 71.7 % (47.0-73.0); PLATELET COUNT AUTOMATED 105 10*3/uL (130-400); RED BLOOD COUNT 2.85 10*6/uL (4.10-5.10); RED CELL DISTRI WIDTH 17.1 % (0-14.5); WHITE BLOOD COUNT 2.7 10*3/uL (4.8-10.8)
[2017-02-22 08:08] LABS: MEAN CELL VOLUME 93.7 fl (81.0-99.0)
[2017-02-22 09:04] LABS: CREATININE 4.47 mg/dL (0.55-1.02); PHOSPHOROUS 4.7 mg/dL (2.5-4.9); TOTAL PROTEIN 6.6 gm/dL (6.4-8.2)
[2017-02-22 09:12] LABS: POTASSIUM 4.8 mmol/L (3.5-5.1)
[2017-02-22 12:00] VITALS: BP 104/44
[2017-02-22] MEDS ORDERED: ROBITUSSIN5 ML PO (13:41)
== END 2017-02-22 17:30 | disposition home or self-care (01) | DRG 871 ==
LOC: ED 03:32 → ICCU 05:51 → 5E 05:51 → ICCU 13:37 → 5E 13:57
PROVIDERS: Emergency Medicine; Hospitalist; Internal Medicine
PROC: 5A1D70Z Performance of Urinary Filtration, Intermittent, Less than 6 Hours Per Day (ICD-10-PCS; principal; 2017-02-21)
DX: A41.9 Sepsis, unspecified organism (principal); I50.33 Acute on chronic diastolic (congestive) heart failure; I13.2 Hypertensive heart and chronic kidney disease with heart failure and with stage 5 chronic kidney disease, or end stage renal disease; D61.818 Other pancytopenia; D69.6 Thrombocytopenia, unspecified; J18.9 Pneumonia, unspecified organism; E11.22 Type 2 diabetes mellitus with diabetic chronic kidney disease; E11.65 Type 2 diabetes mellitus with hyperglycemia; N18.6 End stage renal disease; I48.1 Persistent atrial fibrillation; E87.1 Hypo-osmolality and hyponatremia; E44.1 Mild protein-calorie malnutrition; E87.8 Other disorders of electrolyte and fluid balance, not elsewhere classified; E83.39 Other disorders of phosphorus metabolism; E87.5 Hyperkalemia; K52.9 Noninfective gastroenteritis and colitis, unspecified; I25.5 Ischemic cardiomyopathy; E03.9 Hypothyroidism, unspecified; M19.90 Unspecified osteoarthritis, unspecified site; K21.9 Gastro-esophageal reflux disease without esophagitis; E78.5 Hyperlipidemia, unspecified; D64.9 Anemia, unspecified; R65.20 Severe sepsis without septic shock; Z82.49 Family history of ischemic heart disease and other diseases of the circulatory system; Z80.0 Family history of malignant neoplasm of digestive organs; Z79.899 Other long term (current) drug therapy; Z99.2 Dependence on renal dialysis; Z90.49 Acquired absence of other specified parts of digestive tract; Z98.42 Cataract extraction status, left eye; Z98.41 Cataract extraction status, right eye; Z83.3 Family history of diabetes mellitus; Z88.4 Allergy status to anesthetic agent; Z68.30 Body mass index [BMI] 30.0-30.9, adult; E66.09 Other obesity due to excess calories

== ENCOUNTER 2017-04-06 05:07 | Emergency (ER) | payer MEDICARE, MEDICAID ==
[~2017-04-06] VITALS: Ht 165.1 cm; Wt 95.3 kg
[~2017-04-06 05:07] MED LIST changes: +KLOR-CON M2020 ME1 PO; +MILK OF MA400 MG/5 M PO; +ROBITUSSIN5 ML PO
[2017-04-06 05:57] LABS: BASO % 0.4 % (0.0-1.0); EOS # 0.1 10*3/uL (0.0-0.4); EOS % 0.9 % (1.0-4.0); HEMATOCRIT 33.7 % (37.0-47.0); HEMOGLOBIN 10.8 g/dl (12.0-16.0); LYMPH # 0.9 10*3/uL (1.3-4.4); LYMPH % 11.2 % (27.0-41.0); MEAN CELL VOLUME 90.8 fl (81.0-99.0); MEAN CORPUSCULAR HGB 29.1 pg (27.0-31.0); MEAN PLATELET VOLUME 10.5 fl (9.6-12.3); MONO # 0.6 10*3/uL (0.1-1.0); MONO % 7.6 % (3.0-9.0); NEUT # 6.2 10*3/uL (2.3-7.9); NEUT % 78.8 % (47.0-73.0); PLATELET COUNT AUTOMATED 131 10*3/uL (130-400); RED BLOOD COUNT 3.71 10*6/uL (4.10-5.10); RED CELL DISTRI WIDTH 15.5 % (0-14.5); WHITE BLOOD COUNT 7.9 10*3/uL (4.8-10.8)
[2017-04-06 06:12] LABS: ACT PARTIAL THROMBO TIME 31.2 SECONDS (20.8-31.5)
[2017-04-06 06:18] LABS: BILIRUBIN NEGATIVE (NEGATIVE); BLOOD NEGATIVE (NEGATIVE); CLARITY CLEAR (CLEAR); COLOR YELLOW (YELLOW); GLUCOSE NEGATIVE (NEGATIVE); KETONE NEGATIVE (NEGATIVE); LEUKO ESTERASE NEGATIVE (NEGATIVE); NITRITE NEGATIVE (NEGATIVE); PH 8.5 (5.0-9.0)
[2017-04-06 06:18] LABS: ALBUMIN 3.1 gm/dl (3.1-4.5); ALKALINE PHOSPHATASE 192 U/L (45-117); BUN 19 mg/dl (7-24); CHLORIDE 97 mmol/L (98-107); CREATININE 4.25 mg/dL (0.55-1.02); POTASSIUM 3.5 mmol/L (3.5-5.1); SGOT/AST 72 IU/L (3-35); SGPT/ALT 52 U/L (12-78); SODIUM 138 mmol/L (136-145); TOTAL PROTEIN 7.4 gm/dL (6.4-8.2)
[2017-04-06 06:20] LABS: TROPONIN I < 0.015 ng/ml (<0.045)
[2017-04-06 06:34] LABS: EPITHELIAL CELLS 0-2; MUCOUS TRACE; RBC 0-2 rbc/hpf (0-2)
== END 2017-04-06 06:36 | disposition short-term general hospital (02) ==
LOC: ED 05:07
PROVIDERS: Emergency Medicine Emergency Medical Services
DX: R47.01 Aphasia (principal); E11.22 Type 2 diabetes mellitus with diabetic chronic kidney disease; I12.9 Hypertensive chronic kidney disease with stage 1 through stage 4 chronic kidney disease, or unspecified chronic kidney disease; N18.9 Chronic kidney disease, unspecified; Z88.8 Allergy status to other drugs, medicaments and biological substances; Z79.899 Other long term (current) drug therapy; Z90.49 Acquired absence of other specified parts of digestive tract

== ENCOUNTER → 2017-05-03 | Outpatient (CLI) | payer MEDICARE, MEDICAID | END | disposition home or self-care (01) | LOC: US 04-30 12:30 | DX: Z12.31 Encounter for screening mammogram for malignant neoplasm of breast (principal); N95.0 Postmenopausal bleeding ==

== ENCOUNTER → 2017-05-15 | Outpatient (CLI) | payer MEDICARE, MEDICAID | END | disposition home or self-care (01) | LOC: MAMMO 03:45 | DX: Z12.31 Encounter for screening mammogram for malignant neoplasm of breast (principal) ==

== ENCOUNTER → 2017-07-03 | Outpatient (CLI) | payer MEDICARE, MEDICAID ==
[2017-07-03 13:53] LABS: CREATININE 5.32 mg/dL (0.55-1.02)
== END | disposition home or self-care (01) ==
LOC: LAB 12:23 → CT 15:00
PROVIDERS: Radiology Diagnostic Radiology
DX: I25.10 Atherosclerotic heart disease of native coronary artery without angina pectoris (principal); C54.1 Malignant neoplasm of endometrium; N19 Unspecified kidney failure

== ENCOUNTER 2017-08-11 23:21 | Emergency (ER) | payer MEDICARE, MEDICAID ==
[~2017-08-11] VITALS: Ht 175.2 cm; Wt 88.5 kg
[2017-08-12] LABS: BASO % 0.3 % (0.0-1.0); EOS # 0.2 10*3/uL (0.0-0.4); EOS % 1.3 % (1.0-4.0); HEMATOCRIT 25.7 % (37.0-47.0); HEMOGLOBIN 8.4 g/dl (12.0-16.0); LYMPH # 1.3 10*3/uL (1.3-4.4); LYMPH % 9.9 % (27.0-41.0); MEAN CELL VOLUME 98.5 fl (81.0-99.0); MEAN CORPUSCULAR HGB 32.2 pg (27.0-31.0); MEAN CORPUSCULAR HGB CONC 32.7 g/dl (33.0-37.0); MONO # 0.9 10*3/uL (0.1-1.0); MONO % 7.3 % (3.0-9.0); NEUT # 10.3 10*3/uL (2.3-7.9); NEUT % 80.6 % (47.0-73.0); PLATELET COUNT AUTOMATED 179 10*3/uL (130-400); RED BLOOD COUNT 2.61 10*6/uL (4.10-5.10); RED CELL DISTRI WIDTH 15.3 % (0-14.5); WHITE BLOOD COUNT 12.8 10*3/uL (4.8-10.8)
[2017-08-12 00:16] LABS: ALBUMIN 2.7 gm/dl (3.1-4.5); CREATININE 5.75 mg/dL (0.55-1.02); POTASSIUM 4.4 mmol/L (3.5-5.1); TOTAL PROTEIN 6.9 gm/dL (6.4-8.2)
[2017-08-12 03:25] LABS: ACT PARTIAL THROMBO TIME 28.7 SECONDS (20.8-31.5)
[2017-08-12 04:00] LABS: BILIRUBIN 1+ (NEGATIVE); BLOOD 3+ (NEGATIVE); CLARITY SL CLOUDY (CLEAR); COLOR YELLOW (YELLOW); GLUCOSE NEGATIVE (NEGATIVE); KETONE TRACE (NEGATIVE); LEUKO ESTERASE TRACE (NEGATIVE); NITRITE NEGATIVE (NEGATIVE); SPECIFIC GRAVITY 1.015 (1.005-1.030)
[2017-08-12 04:06] LABS: EPITHELIAL CELLS 25-30; WBC 21-30 wbc/hpf (0-5)
[2017-08-12 04:07] LABS: BACTERIA TRACE; RBC 31-40 rbc/hpf (0-2)
[2017-08-13] MEDS ORDERED: AUGMENTIN 875-875 MG PO (03:10)
== END 2017-08-12 04:39 | disposition home or self-care (01) ==
LOC: ED 23:21
PROVIDERS: Physician Assistant; Student in an Organized Health Care Education/Training Program
DX: S30.1XXA Contusion of abdominal wall, initial encounter (principal); I13.2 Hypertensive heart and chronic kidney disease with heart failure and with stage 5 chronic kidney disease, or end stage renal disease; E11.22 Type 2 diabetes mellitus with diabetic chronic kidney disease; N18.5 Chronic kidney disease, stage 5; I50.33 Acute on chronic diastolic (congestive) heart failure; E03.9 Hypothyroidism, unspecified; K21.9 Gastro-esophageal reflux disease without esophagitis; I48.91 Unspecified atrial fibrillation; X58.XXXA Exposure to other specified factors, initial encounter; Z88.4 Allergy status to anesthetic agent; Z79.4 Long term (current) use of insulin; Z79.899 Other long term (current) drug therapy; Z90.49 Acquired absence of other specified parts of digestive tract; Y93.89 Activity, other specified; Y92.89 Other specified places as the place of occurrence of the external cause; Y99.8 Other external cause status

== ENCOUNTER 2017-08-13 23:15 | Inpatient (IN) | payer MEDICARE, MEDICAID ==
[~2017-08-13] VITALS: Ht 175.3 cm; Wt 82.8 kg
--- NOTE | ~2017-08-13 | EKG ---
[place], [place] ELECTROCARDIOGRAM REPORT NAME: RANDY MCBRIDE UNIT #: [id number] ROOM: 409 DOCTOR: ELANA KIMBROUGH MD BIRTHDATE: [birth year] DOS: 08/14/2017 RATE AND RHYTHM: It is accelerated junctional rhythm at 90 beats per minute. [place] interval undetermined and QRS duration is 92. Corrected QT interval is 475 milliseconds. IMPRESSION: 1. Accelerated junctional rhythm. 2. Low voltage EKG. No old EKG to compare with. ELANA KIMBROUGH MD CM:EKGRPT:ELECTROCARDIOGRAM REPORT [id number] [id number] ELANA KIMBROUGH MD
[~2017-08-13 23:15] MED LIST changes: +AUGMENTIN 875-875 MG PO
[2017-08-13 23:25] VITALS: BP 136/48
[2017-08-14 00:10] LABS: BASO % 0.3 % (0.0-1.0); EOS # 0.1 10*3/uL (0.0-0.4); EOS % 0.5 % (1.0-4.0); HEMATOCRIT 24.9 % (37.0-47.0); HEMOGLOBIN 8.4 g/dl (12.0-16.0); LYMPH # 0.9 10*3/uL (1.3-4.4); LYMPH % 9.7 % (27.0-41.0); MEAN CELL VOLUME 99.6 fl (81.0-99.0); MEAN CORPUSCULAR HGB 33.6 pg (27.0-31.0); MEAN CORPUSCULAR HGB CONC 33.7 g/dl (33.0-37.0); MEAN PLATELET VOLUME 8.9 fl (9.6-12.3); MONO % 10.9 % (3.0-9.0); NEUT # 7.3 10*3/uL (2.3-7.9); NEUT % 78.1 % (47.0-73.0); PLATELET COUNT AUTOMATED 189 10*3/uL (130-400); RED CELL DISTRI WIDTH 15.9 % (0-14.5); WHITE BLOOD COUNT 9.4 10*3/uL (4.8-10.8)
[2017-08-14 00:24] LABS: ACT PARTIAL THROMBO TIME 26.2 SECONDS (20.8-31.5); INTERNATIONAL NORM RATIO 1.1 (2.0-3.5)
[2017-08-14 00:27] LABS: ALBUMIN 2.5 gm/dl (3.1-4.5); CREATININE 4.29 mg/dL (0.55-1.02); POTASSIUM 3.3 mmol/L (3.5-5.1); TOTAL PROTEIN 6.6 gm/dL (6.4-8.2)
[2017-08-14 01:21] VITALS: BP 142/72
[2017-08-14 02:17] LABS: BILIRUBIN 1+ (NEGATIVE); BLOOD 3+ (NEGATIVE); CLARITY CLOUDY (CLEAR); COLOR YELLOW (YELLOW); GLUCOSE NEGATIVE (NEGATIVE); KETONE 1+ (NEGATIVE); LEUKO ESTERASE 3+ (NEGATIVE); NITRITE POSITIVE (NEGATIVE); UROBILINOGEN 0.2 E.U./dl (0.2-1.0)
[2017-08-14 02:25] LABS: WBC TNTC wbc/hpf (0-5)
[2017-08-14 02:45] VITALS: BP 149/52; BP 159/52
[2017-08-14 07:48] LABS: BASO % 0.3 % (0.0-1.0); EOS # 0.2 10*3/uL (0.0-0.4); EOS % 1.5 % (1.0-4.0); HEMATOCRIT 24.6 % (37.0-47.0); HEMOGLOBIN 7.8 g/dl (12.0-16.0); LYMPH # 1.1 10*3/uL (1.3-4.4); LYMPH % 11.2 % (27.0-41.0); MEAN CELL VOLUME 100.8 fl (81.0-99.0); MEAN CORPUSCULAR HGB CONC 31.7 g/dl (33.0-37.0); MEAN PLATELET VOLUME 9.1 fl (9.6-12.3); MONO % 9.6 % (3.0-9.0); NEUT # 7.6 10*3/uL (2.3-7.9); NEUT % 76.7 % (47.0-73.0); PLATELET COUNT AUTOMATED 195 10*3/uL (130-400); RED BLOOD COUNT 2.44 10*6/uL (4.10-5.10); RED CELL DISTRI WIDTH 15.9 % (0-14.5); WHITE BLOOD COUNT 9.9 10*3/uL (4.8-10.8)
[2017-08-14 07:59] LABS: ALBUMIN 2.3 gm/dl (3.1-4.5); CREATININE 4.67 mg/dL (0.55-1.02); PHOSPHOROUS 3.3 mg/dL (2.5-4.9); POTASSIUM 3.7 mmol/L (3.5-5.1); TOTAL PROTEIN 6.1 gm/dL (6.4-8.2)
[2017-08-14 08:00] VITALS: BP 142/56
[2017-08-14 08:03] LABS: THYROID STIM HORMONE (HS) 1.6 uIU/ml (0.358-4.75)
[2017-08-14 08:37] LABS: VITAMIN D, 25-HYDROXY 33.9 ng/mL (30-100)
[2017-08-14 12:00] VITALS: BP 140/52
[2017-08-14 16:00] VITALS: BP 140/54
[2017-08-14 20:00] VITALS: BP 134/54
[2017-08-15] VITALS: BP 123/49
[2017-08-15 08:00] VITALS: BP 143/48
[2017-08-15 12:00] VITALS: BP 157/50
[2017-08-15 16:00] VITALS: BP 142/47
[2017-08-15] MEDS ORDERED: VIRT-CAPS SOFTGE1 MG PO (17:28)
[2017-08-15] MEDS ORDERED: TRAZODONE50 MG PO (17:31)
[2017-08-15] MEDS ORDERED: DUONEB 3 MG/3 ML3 M1 INH (17:32)
[2017-08-15] MEDS ORDERED: LEVEMIR100 UNIT/1 SQ (17:34)
[2017-08-15] MEDS ORDERED: RENVELA800 MG PO (17:35)
[2017-08-15 20:00] VITALS: BP 133/46
[2017-08-16] VITALS: BP 120/44
[2017-08-16 07:27] LABS: POTASSIUM 3.4 mmol/L (3.5-5.1)
[2017-08-16 07:33] LABS: CREATININE 4.11 mg/dL (0.55-1.02)
[2017-08-16 08:00] VITALS: BP 110/46
[2017-08-16 12:00] VITALS: BP 114/87
[2017-08-16 16:00] VITALS: BP 114/52
[2017-08-16 20:00] VITALS: BP 146/55
[2017-08-17] VITALS: BP 134/60
[2017-08-17 07:31] LABS: EOS # 0.2 10*3/uL (0.0-0.4); EOS % 4.1 % (1.0-4.0); HEMATOCRIT 27.2 % (37.0-47.0); HEMOGLOBIN 8.7 g/dl (12.0-16.0); LYMPH # 0.8 10*3/uL (1.3-4.4); LYMPH % 19.8 % (27.0-41.0); MEAN CELL VOLUME 98.9 fl (81.0-99.0); MEAN CORPUSCULAR HGB 31.6 pg (27.0-31.0); MEAN PLATELET VOLUME 9.4 fl (9.6-12.3); MONO # 0.6 10*3/uL (0.1-1.0); MONO % 13.8 % (3.0-9.0); NEUT # 2.4 10*3/uL (2.3-7.9); NEUT % 58.4 % (47.0-73.0); PLATELET COUNT AUTOMATED 178 10*3/uL (130-400); RED BLOOD COUNT 2.75 10*6/uL (4.10-5.10); RED CELL DISTRI WIDTH 15.7 % (0-14.5); WHITE BLOOD COUNT 4.1 10*3/uL (4.8-10.8)
[2017-08-17 07:57] LABS: ALBUMIN 2.4 gm/dl (3.1-4.5); CREATININE 5.86 mg/dL (0.55-1.02); POTASSIUM 3.2 mmol/L (3.5-5.1); TOTAL PROTEIN 6.7 gm/dL (6.4-8.2)
[2017-08-17 08:00] VITALS: BP 124/50
[2017-08-17 17:00] VITALS: BP 118/52
[2017-08-17 20:00] VITALS: BP 119/45
[2017-08-18] VITALS: BP 90/30
[2017-08-18 03:00] VITALS: BP 112/56
[2017-08-18 08:00] VITALS: BP 108/60
[2017-08-18] MEDS ORDERED: LACTINEX 0.2 MG1 TAB PO (10:45)
[2017-08-18] MEDS ORDERED: CIPRO500 MG PO (10:47)
[2017-09-27] MEDS ORDERED: LEVOFLOXACIN500 MG PO (15:08)
== END 2017-08-18 12:00 | disposition home or self-care (01) | DRG 689 ==
LOC: ED 23:15 → EDHOLD 08-14 02:24 → 4E 08-14 02:24
PROVIDERS: Family Medicine; Internal Medicine Nephrology; Student in an Organized Health Care Education/Training Program
PROC: 5A1D70Z Performance of Urinary Filtration, Intermittent, Less than 6 Hours Per Day (ICD-10-PCS; principal; 2017-08-15)
PROC: 5A1D70Z Performance of Urinary Filtration, Intermittent, Less than 6 Hours Per Day (ICD-10-PCS; 2017-08-17)
DX: N39.0 Urinary tract infection, site not specified (principal); G93.41 Metabolic encephalopathy; E43 Unspecified severe protein-calorie malnutrition; I13.2 Hypertensive heart and chronic kidney disease with heart failure and with stage 5 chronic kidney disease, or end stage renal disease; R18.8 Other ascites; E11.22 Type 2 diabetes mellitus with diabetic chronic kidney disease; E87.8 Other disorders of electrolyte and fluid balance, not elsewhere classified; N18.6 End stage renal disease; I48.0 Paroxysmal atrial fibrillation; D53.9 Nutritional anemia, unspecified; E87.6 Hypokalemia; E11.65 Type 2 diabetes mellitus with hyperglycemia; R74.8 Abnormal levels of other serum enzymes; E03.9 Hypothyroidism, unspecified; I50.9 Heart failure, unspecified; B96.89 Other specified bacterial agents as the cause of diseases classified elsewhere; R31.9 Hematuria, unspecified; K21.9 Gastro-esophageal reflux disease without esophagitis; E78.5 Hyperlipidemia, unspecified; M19.90 Unspecified osteoarthritis, unspecified site; Z99.2 Dependence on renal dialysis; Z90.710 Acquired absence of both cervix and uterus; Z79.4 Long term (current) use of insulin; Z98.41 Cataract extraction status, right eye; Z98.42 Cataract extraction status, left eye; Z90.49 Acquired absence of other specified parts of digestive tract; Z82.49 Family history of ischemic heart disease and other diseases of the circulatory system; Z80.0 Family history of malignant neoplasm of digestive organs; Z83.3 Family history of diabetes mellitus; Z68.27 Body mass index [BMI] 27.0-27.9, adult

== ENCOUNTER 2017-08-28 15:06 | Inpatient (IN) | payer MEDICARE, MEDICAID ==
[~2017-08-28] VITALS: Ht 175.3 cm; Wt 83.2 kg
--- NOTE | ~2017-08-28 | PR ---
[place], [place] PROGRESS NOTE NAME: RANDY MCBRIDE UNIT #: [id number] ROOM: 422 DOCTOR: RAMAN SALOMON MD BIRTHDATE: [birth year] DOS: 08/31/[address] Singh. SUBJECTIVE: This patient had atrial fibrillation with rapid ventricular rate. She feels well. She walked today without much shortness of breath. No chest pain or dizziness. She is now dialyzing and is very comfortable. PHYSICAL EXAMINATION: GENERAL: The patient looks pale, alert, oriented. She is not tachypneic. VITAL SIGNS: Pulse is irregular at 88, blood pressure 160/54. NECK: Normal JVP. LUNGS: Breath sounds are fairly decent with hardly any adventitious sounds. EXTREMITIES: No edema of the lower extremity. IMPRESSION: 1. Chronic atrial fibrillation with controlled ventricular rate. She is on metoprolol and no Cardizem any more. 2. End-stage renal disease. She is euvolemic, but is dialyzing now. No new recommendations. RAMAN SALOMON MD CM:PNTRANS [id number] RAMAN SALOMON MD 09/01/17 0003 interface
--- NOTE | ~2017-08-28 | PR ---
[place], [place] PROGRESS NOTE NAME: RANDY MCBRIDE UNIT #: [id number] ROOM: 422 DOCTOR: RAMAN SALOMON MD BIRTHDATE: [birth year] DOS: 08/30/[address] Singh. SUBJECTIVE: This patient was admitted to the hospital. She has chronic atrial fibrillation and heart was somewhat rapid. She also has end-stage renal disease and will dialyze tomorrow. She does not have any palpitation. No breathing difficulty. She has some pain over the right lateral part of the chest. She tells me this is from a fall that she had a while ago. PHYSICAL EXAMINATION: GENERAL: The patient was alert, oriented. She is quite hirsute. VITAL SIGNS: Pulse is irregular at 80 beats per minute, blood pressure is normal. JVP is also normal. LUNGS: Breath sounds are mildly diminished with very few adventitious sounds. EXTREMITIES: Trace bipedal edema. IMPRESSION: 1. Chronic atrial fibrillation with controlled ventricular rate. She is on 50 of metoprolol succinate daily and has been on a Cardizem drip as well. I think if heart rate is not controlled adequately, dose of metoprolol can be increased to 50 mg b.i.d. and IV Cardizem can be discontinued. 2. End-stage renal disease. She seems to be euvolemic today. RAMAN SALOMON MD CM:PNTRANS 17 8 RAMAN SALOMON MD 08/31/1707 interface
--- NOTE | ~2017-08-28 | CON ---
[place], [place] REPORT OF CONSULTATION NAME: RANDY MCBRIDE UNIT #: [id number] ROOM: 422 DOCTOR: SLOAN GATICA MD BIRTHDATE: [birth year] DOS: 08/29/2017 HISTORY OF PRESENT ILLNESS: The patient is very well known to me with a known history of persistent atrial fibrillation, chronic renal failure and dialysis dependent. The patient was admitted with probably of a urinary tract infection, which triggered her atrial fibrillation with a rapid ventricular response. I was consulted. I started the patient on the Cardizem drip. Now, after treating the UTI, on antibiotics. Right now, the patient's heart rate is much better and her Cardizem has been discontinued. PAST MEDICAL HISTORY: History of chronic atrial fibrillation, hypertension, chronic renal failure. SURGICAL HISTORY: Previous cardiac catheterization, EGD, history of hysterectomy, left ventricular dysfunction and cholecystectomy. SOCIAL HISTORY: Does not drink alcohol, does not use any drugs. Does not use tobacco. FAMILY HISTORY: Positive for coronary artery disease. HOME MEDICATIONS: Include apixaban, insulin, levothyroxine, metoprolol and trazodone. REVIEW OF SYSTEMS: CONSTITUTIONAL: No fever, no chills. HEENT: No visual disturbance or hearing problems. CARDIOVASCULAR: Reports palpitations. GASTROINTESTINAL: Reports nausea and diarrhea. RESPIRATORY SYSTEM: Has dyspnea on exertion. NEUROLOGICAL: Stable. PHYSICAL EXAMINATION: GENERAL: The patient is alert, oriented x 3. VITAL SIGNS: Heart sounds atrial fibrillation, rate is about 110. HEENT: Unremarkable. NECK: Supple, no JVD. LUNGS: Lungs are clear. HEART: Sounds are regular. NEUROLOGIC: Stable. LABORATORY DATA: Sodium 137, potassium 3.0, creatinine is 6. INR is normal. Hemoglobin 7.8, hematocrit 24.5. IMPRESSION: Atrial fibrillation, leukopenia and lymphopenia, anemia, hyperthyroidism and history of diastolic heart failure in the past. RECOMMENDATIONS: Increase the Toprol-XL to 50 daily. Monitor the heart rate closely. Continue the apixaban and we will follow up. [place], [place] REPORT OF CONSULTATION NAME: RANDY MCBRIDE UNIT #: [id number] ROOM: 422 DOCTOR: SLOAN GATICA MD BIRTHDATE: [birth year] SLOAN GATICA MD CM:CONSTR:REPORT OF CONSULTATION 1629 08/30/17 0452 interface
--- NOTE | ~2017-08-28 | PR ---
[place], [place] PROGRESS NOTE NAME: [id number] UNIT #: [id number] ROOM: 422 DOCTOR: DARCY GAMA MD BIRTHDATE: [birth year] DOS: SUBJECTIVE: The patient has been admitted to hospital for chronic atrial fibrillation with end-stage renal disease and she is possibly going home today. She is feeling better. She has history of atrial fibrillation for some time, leukopenia, lymphopenia, monocytosis, macrocytic anemia, hypochloremia, elevated TSH, elevated serum T4 level, hypothyroidism, moderate protein caloric malnutrition, congestive heart failure, hypothyroidism, hyperlipidemia, hypertension, GERD syndrome, end-stage renal failure on dialysis, osteoporosis, vitamin D deficiency. The patient is feeling good today. She is not having any complaint. OBJECTIVE: VITAL SIGNS: Her blood pressure 115/50, pulse is 74, respirations 19, temperature 98.6. DARCY GAMA MD CM:PNTRANS 0735 [id number] DARCY GAMA MD 09/01/17 2332 interface
[~2017-08-28 15:06] MED LIST changes: +DUONEB 3 MG/3 ML3 M1 INH; +LACTINEX 0.2 MG1 TAB PO; +LEVEMIR100 UNIT/1 SQ; +RENVELA800 MG PO; +TRAZODONE50 MG PO; +VIRT-CAPS SOFTGE1 MG PO
[2017-08-28 15:20] VITALS: BP 135/77
[2017-08-28 15:43] LABS: BASO % 0.6 % (0.0-1.0); EOS # 0.1 10*3/uL (0.0-0.4); EOS % 1.7 % (1.0-4.0); HEMATOCRIT 29.6 % (37.0-47.0); HEMOGLOBIN 9.4 g/dl (12.0-16.0); LYMPH # 1.2 10*3/uL (1.3-4.4); LYMPH % 25.1 % (27.0-41.0); MEAN CELL VOLUME 99.3 fl (81.0-99.0); MEAN CORPUSCULAR HGB 31.5 pg (27.0-31.0); MEAN CORPUSCULAR HGB CONC 31.8 g/dl (33.0-37.0); MEAN PLATELET VOLUME 9.2 fl (9.6-12.3); MONO # 0.5 10*3/uL (0.1-1.0); MONO % 11.2 % (3.0-9.0); NEUT # 2.8 10*3/uL (2.3-7.9); PLATELET COUNT AUTOMATED 220 10*3/uL (130-400); RED BLOOD COUNT 2.98 10*6/uL (4.10-5.10); RED CELL DISTRI WIDTH 15.7 % (0-14.5); WHITE BLOOD COUNT 4.6 10*3/uL (4.8-10.8)
[2017-08-28 15:52] LABS: ACT PARTIAL THROMBO TIME 24.1 SECONDS (20.8-31.5); INTERNATIONAL NORM RATIO 1.1 (2.0-3.5)
[2017-08-28 15:59] LABS: ALBUMIN 2.8 gm/dl (3.1-4.5); ALKALINE PHOSPHATASE 97 U/L (45-117); BUN 12 mg/dl (7-24); CHLORIDE 94 mmol/L (98-107); CREATININE 5.33 mg/dL (0.55-1.02); PHOSPHOROUS 3.4 mg/dL (2.5-4.9); POTASSIUM 3.6 mmol/L (3.5-5.1); SGOT/AST 23 IU/L (3-35); SGPT/ALT 15 U/L (12-78); SODIUM 137 mmol/L (136-145); TOTAL PROTEIN 7.2 gm/dL (6.4-8.2); TROPONIN I < 0.015 ng/ml (<0.045)
[2017-08-28] MEDS ORDERED: ZOFRAN4 MG PO (16:34)
[2017-08-28 16:43] LABS: FREE T4 1.79 ng/dl (0.76-1.46)
[2017-08-28 20:00] VITALS: BP 105/52; BP 106/52; BP 132/61
[2017-08-28 20:06] VITALS: BP 105/52
[2017-08-28 22:00] VITALS: BP 106/64
[2017-08-29] VITALS: BP 141/65; BP 142/64
[2017-08-29 02:00] VITALS: BP 124/62
[2017-08-29 04:00] VITALS: BP 122/52
[2017-08-29 08:09] LABS: BASO % 0.6 % (0.0-1.0); EOS # 0.1 10*3/uL (0.0-0.4); EOS % 4.1 % (1.0-4.0); HEMATOCRIT 24.5 % (37.0-47.0); HEMOGLOBIN 7.8 g/dl (12.0-16.0); LYMPH # 0.9 10*3/uL (1.3-4.4); LYMPH % 27.1 % (27.0-41.0); MEAN CELL VOLUME 99.2 fl (81.0-99.0); MEAN CORPUSCULAR HGB 31.6 pg (27.0-31.0); MEAN CORPUSCULAR HGB CONC 31.8 g/dl (33.0-37.0); MEAN PLATELET VOLUME 9.5 fl (9.6-12.3); MONO # 0.4 10*3/uL (0.1-1.0); MONO % 12.3 % (3.0-9.0); NEUT # 1.8 10*3/uL (2.3-7.9); NEUT % 55.3 % (47.0-73.0); PLATELET COUNT AUTOMATED 170 10*3/uL (130-400); RED BLOOD COUNT 2.47 10*6/uL (4.10-5.10); RED CELL DISTRI WIDTH 15.6 % (0-14.5); WHITE BLOOD COUNT 3.2 10*3/uL (4.8-10.8)
[2017-08-29 08:24] LABS: ALBUMIN 2.3 gm/dl (3.1-4.5); CREATININE 6.27 mg/dL (0.55-1.02); PHOSPHOROUS 4.4 mg/dL (2.5-4.9)
[2017-08-29 16:00] VITALS: BP 112/78
[2017-08-29 16:24] LABS: BILIRUBIN 1+ (NEGATIVE); BLOOD 3+ (NEGATIVE); CLARITY CLOUDY (CLEAR); COLOR YELLOW (YELLOW); GLUCOSE NEGATIVE (NEGATIVE); KETONE 1+ (NEGATIVE); LEUKO ESTERASE 2+ (NEGATIVE); NITRITE NEGATIVE (NEGATIVE); SPECIFIC GRAVITY 1.025 (1.005-1.030)
[2017-08-29 16:31] LABS: BACTERIA 1+; EPITHELIAL CELLS 51-100; YEAST 3+
[2017-08-29 16:33] LABS: RBC 31-40 rbc/hpf (0-2); WBC 16-20 wbc/hpf (0-5)
[2017-08-29 20:00] VITALS: BP 106/43
[2017-08-30] VITALS: BP 94/64
[2017-08-30 06:41] LABS: BASO % 0.5 % (0.0-1.0); EOS # 0.2 10*3/uL (0.0-0.4); EOS % 4.9 % (1.0-4.0); HEMATOCRIT 27.6 % (37.0-47.0); HEMOGLOBIN 8.5 g/dl (12.0-16.0); LYMPH # 1.2 10*3/uL (1.3-4.4); LYMPH % 28.3 % (27.0-41.0); MEAN CELL VOLUME 100.4 fl (81.0-99.0); MEAN CORPUSCULAR HGB 30.9 pg (27.0-31.0); MEAN CORPUSCULAR HGB CONC 30.8 g/dl (33.0-37.0); MEAN PLATELET VOLUME 10.1 fl (9.6-12.3); MONO # 0.4 10*3/uL (0.1-1.0); MONO % 10.8 % (3.0-9.0); NEUT # 2.2 10*3/uL (2.3-7.9); PLATELET COUNT AUTOMATED 168 10*3/uL (130-400); RED BLOOD COUNT 2.75 10*6/uL (4.10-5.10); RED CELL DISTRI WIDTH 15.5 % (0-14.5); WHITE BLOOD COUNT 4.1 10*3/uL (4.8-10.8)
[2017-08-30 06:50] LABS: ALBUMIN 2.4 gm/dl (3.1-4.5); CREATININE 4.16 mg/dL (0.55-1.02); PHOSPHOROUS 2.5 mg/dL (2.5-4.9)
[2017-08-30 07:15] LABS: POTASSIUM 4.2 mmol/L (3.5-5.1)
[2017-08-30 08:00] VITALS: BP 108/62
[2017-08-30 12:00] VITALS: BP 113/58
[2017-08-30 16:00] VITALS: BP 113/49
[2017-08-30 20:00] VITALS: BP 120/56
[2017-08-31] VITALS: BP 116/54
[2017-08-31 06:28] LABS: BASO % 0.7 % (0.0-1.0); EOS # 0.3 10*3/uL (0.0-0.4); EOS % 6.4 % (1.0-4.0); HEMATOCRIT 26.9 % (37.0-47.0); HEMOGLOBIN 8.6 g/dl (12.0-16.0); LYMPH # 1.3 10*3/uL (1.3-4.4); LYMPH % 28.7 % (27.0-41.0); MEAN CELL VOLUME 98.9 fl (81.0-99.0); MEAN CORPUSCULAR HGB 31.6 pg (27.0-31.0); MEAN PLATELET VOLUME 9.6 fl (9.6-12.3); MONO # 0.5 10*3/uL (0.1-1.0); NEUT # 2.4 10*3/uL (2.3-7.9); PLATELET COUNT AUTOMATED 139 10*3/uL (130-400); RED BLOOD COUNT 2.72 10*6/uL (4.10-5.10); RED CELL DISTRI WIDTH 15.1 % (0-14.5); WHITE BLOOD COUNT 4.5 10*3/uL (4.8-10.8)
[2017-08-31 06:50] LABS: ALBUMIN 2.3 gm/dl (3.1-4.5); CREATININE 5.47 mg/dL (0.55-1.02)
[2017-08-31 08:00] VITALS: BP 120/68
[2017-08-31] MEDS ORDERED: TOPROL XL50 M1 PO (15:41)
[2017-08-31] MEDS ORDERED: FLUCONAZOLE100 MG PO (15:41)
[2017-08-31 16:00] VITALS: BP 90/64
[2017-08-31 20:00] VITALS: BP 125/61
[2017-09-01] VITALS: BP 115/50
[2017-09-01 08:00] VITALS: BP 119/54
[2017-09-27] MEDS ORDERED: LEVOFLOXACIN500 MG PO (15:08)
== END 2017-09-01 10:30 | disposition home health service (06) | DRG 308 ==
LOC: 4E 15:06
PROVIDERS: Internal Medicine Nephrology
DX: I48.0 Paroxysmal atrial fibrillation (principal); N18.6 End stage renal disease; I13.2 Hypertensive heart and chronic kidney disease with heart failure and with stage 5 chronic kidney disease, or end stage renal disease; E44.0 Moderate protein-calorie malnutrition; E11.22 Type 2 diabetes mellitus with diabetic chronic kidney disease; E87.8 Other disorders of electrolyte and fluid balance, not elsewhere classified; E11.65 Type 2 diabetes mellitus with hyperglycemia; B37.49 Other urogenital candidiasis; N25.81 Secondary hyperparathyroidism of renal origin; I50.30 Unspecified diastolic (congestive) heart failure; I48.2 Chronic atrial fibrillation; I08.1 Rheumatic disorders of both mitral and tricuspid valves; M19.90 Unspecified osteoarthritis, unspecified site; J45.909 Unspecified asthma, uncomplicated; E78.5 Hyperlipidemia, unspecified; D63.1 Anemia in chronic kidney disease; E03.9 Hypothyroidism, unspecified; K21.9 Gastro-esophageal reflux disease without esophagitis; D72.821 Monocytosis (symptomatic); D53.9 Nutritional anemia, unspecified; E05.90 Thyrotoxicosis, unspecified without thyrotoxic crisis or storm; E66.3 Overweight; M81.0 Age-related osteoporosis without current pathological fracture; E55.9 Vitamin D deficiency, unspecified; Z99.2 Dependence on renal dialysis; Z87.440 Personal history of urinary (tract) infections; Z90.710 Acquired absence of both cervix and uterus; Z90.49 Acquired absence of other specified parts of digestive tract; Z98.41 Cataract extraction status, right eye; Z98.42 Cataract extraction status, left eye; Z82.49 Family history of ischemic heart disease and other diseases of the circulatory system; Z80.0 Family history of malignant neoplasm of digestive organs; Z83.6 Family history of other diseases of the respiratory system; Z88.4 Allergy status to anesthetic agent; Z79.4 Long term (current) use of insulin; Z79.899 Other long term (current) drug therapy; Z68.28 Body mass index [BMI] 28.0-28.9, adult

== ENCOUNTER 2017-09-09 18:38 | Inpatient (IN) | payer MEDICARE, MEDICAID ==
[~2017-09-09] VITALS: Ht 175.2 cm; Wt 89.0 kg
--- NOTE | ~2017-09-09 | O ---
[place] [address], [place] OPERATIVE NOTE NAME: RANDY MCBRIDE UNIT #: [id number] ROOM: 419 DOCTOR: TYRESE ALFONSO MD BIRTHDATE: [birth year] DOS: 09/10/2017 GASTROENDOSCOPIC REPORT INDICATIONS: This is a 71-year-old patient who has presented with chief complaint of anemia amongst one of the many of her problems and microcytic indices. PROCEDURE: Today's procedure part of investigation is panendoscopy and colonoscopy. PREMEDICATION: Propofol. SCOPE: Olympus forward-viewing gastroscope Q10 video. REPORT: After putting the patient in left lateral position and application of lubricant to the scope, the scope was introduced. Thereafter, under direct visualization, advanced through the length of esophagus without difficulty into gastric pouch. Mild gastritis seen. Duodenal bulb, second and third part within normal limits. No biopsies obtained due to the fact the patient has to be back on Eliquis. The patient extubated and tolerated the procedure well. IMPRESSION: Gastritis. PLAN AND DISCUSSION: We are going to proceed with colonoscopy today. INDICATIONS: The patient has presented with anemia, etiology of which has been ambiguous to us. PROCEDURE: Today's procedure part of investigation is colonoscopy. PREMEDICATION: Propofol. SCOPE: Olympus forward-viewing colonoscope 10L video. REPORT: After putting the patient in left lateral position and application of lubricant to the scope, the scope was introduced. Thereafter, under direct visualization, advanced through the length of colon without difficulty. Diverticulosis of mild degree was noticed. Base of the cecum explored, appendiceal orifice identified, ileocecal valve photographed. Air was suctioned out. The patient was extubated and tolerated the procedure well. IMPRESSION: [id number]-fx-[id number] diverticulosis. PLAN AND DISCUSSION: 1. This patient is on anticoagulants, Eliquis. This could be one factor to gradual blood loss for microcytic anemia. 2. She has chronic renal failure, on dialysis as another factor for her anemia, [place] [address], [place] OPERATIVE NOTE NAME: RANDY MCBRIDE UNIT #: [id number] ROOM: 419 DOCTOR: TYRESE ALFONSO MD BIRTHDATE: [birth year] microcytic. 3. She has multi-systemic illnesses, again chronic anemia secondary to above and presence of small hematomas in right flank also contribute to some additional blood loss, so in general the anemia, microcytic is multifactorial and presently there is no active evidence of bleeding. We are going to go ahead and proceed with renal diet regular and follow up routinely with you in the office. I thank you very much indeed for your kind referral. TYRESE ALFONSO MD CM:RHODA:OPERATIVE NOTE 182 42 TYRESE ALFONSO MD 09/10/17 184 interface
--- NOTE | ~2017-09-09 | CON ---
[place], [place] REPORT OF CONSULTATION NAME: RANDY MCBRIDE UNIT #: [id number] ROOM: 419 DOCTOR: KADEN LUNATYRESE BIRTHDATE: [birth year] DOS: 09/10/2017 GASTROENDOSCOPIC REPORT HISTORY OF PRESENT ILLNESS: This is a 71-year-old patient who presented with a chief complaint of abdominal pain and anemia, microcytic indices. Lactic acid of 2.3. INR of 1.1. Minimal information can be extracted from her, BUN and creatinine of 13 and 5.9 with GFR of 8, potassium 3.1 initially. LFTs normal. TSH 4.8. The patient's troponin remained normal. CT scan of the abdomen and pelvis was done and mild chronic wall thickening of majority of the colon. Cirrhotic morphology of the liver, moderate pancreatic and renal atrophy, cardiomegaly and right pleural effusion, all was recognized. PAST MEDICAL HISTORY: Associated with atrial fibrillation, asthma, congestive heart failure, diabetes mellitus, hypertension, hyperthyroidism, osteoporosis. PAST SURGICAL HISTORY: Hysterectomy, cardiac catheterization, cataract extraction, cholecystectomy. SOCIAL HISTORY: Nonsmoker, nonalcohol consumer. FAMILY HISTORY: Noncontributory. ALLERGIES: GENERAL ANESTHESIA. MEDICATIONS: Details are unknown. MEDICATIONS: List has been reviewed. The patient has been on Eliquis and multi medication as reviewed. REVIEW OF SYSTEMS: HEENT: Denies double vision, blurred vision. RESPIRATORY: Denies shortness of breath. CARDIOVASCULAR: Denies chest pain. DIGESTIVE SYSTEM: Nonspecific epigastric abdominal pain. PHYSICAL EXAMINATION: VITAL SIGNS: Stable. GENERAL: Very poor historian and communications are dismal. Due to low IQ. Otherwise, HEENT: Benign. Mouth and buccal mucosa. No aphthae ulceration. NECK: Supple. LUNGS: No wheezes, no rhonchi. HEART: Irregular irregularity. ABDOMEN: Soft. No hepato-organomegaly, somewhat lobular, no rebound effect. EXTREMITIES: No cyanosis, no pedal edema. NEUROLOGIC: Alert and slow. IMPRESSION: Microcytic anemia. Other adjunctive diagnoses as outlined in paragraph of past medical, surgical history, the patient with history of atrial fibrillation, on Eliquis on board and anemic, etiology could be multifactorial, [place], [place] REPORT OF CONSULTATION NAME: RANDY MCBRIDE UNIT #: [id number] ROOM: 419 DOCTOR: KADEN LUNA,TYRESE BIRTHDATE: [birth year] not only renal, also blood thinners. PLAN AND DISCUSSION: We are going to do a screening EGD and colonoscopy in search of source of pathology keeping in mind that cirrhotic liver was also appreciated so workup to sort out the etiology and ruling out occult carcinoma. Thank you very much indeed. Other adjunctive diagnoses as outlined in the paragraph past surgical and medical history. TYRESE ALFONSO MD CM:CONSTR:REPORT OF CONSULTATION 1801 09/11/17 0250 interface
--- NOTE | ~2017-09-09 | EKG ---
[place], [place] ELECTROCARDIOGRAM REPORT NAME: RANDY MCBRIDE UNIT #: [id number] ROOM: 419 DOCTOR: LUCY DRAFT REPORT BIRTHDATE: [birth year] [facility] [place] Test Date: 2017-09-09 Test Time: 21:47:35 Pat Name: RANDY MCBRIDE Department: ER Room: 9 Gender: F Web Software Engineer: : 1945 Requested By: BARNEY BECK Order Number: [id number] Reading MD: Jason Ortega MD Measurements Intervals [place] Rate: 106 P: DE: QRS: 65 QRSD: 94 T: 56 QT: 386 QTc: 513 Interpretive Statements Atrial fibrillation Occasional PVC or aberrantly conducted beats Low voltage, extremity and precordial leads RSR' in V1 or V2, probably normal variant Consider anterior infarct Electronically Signed On 09-10-2017 19:07:21 PDT by Jason Ortega MD CM:EKGRPT:ELECTROCARDIOGRAM REPORT 46 06 BARNEY AYALA DRAFT REPORT BARNEY BECK MD
--- NOTE | ~2017-09-09 | EKG ---
[place], [place] ELECTROCARDIOGRAM REPORT NAME: RANDY MCBRIDE UNIT #: [id number] ROOM: 419 DOCTOR: LUCY DRAFT REPORT BIRTHDATE: [birth year] [facility] Test Date: 2017-09-10 Test Time: 01:03:08 Pat Name: RANDY MCBRIDE Department: Room: 419 1 Gender: F Creative Services Coordinator: KASSIDY : 1945 Requested By: BARNEY BECK Order Number: [id number] Reading MD: Jason Ortega MD Measurements Intervals [place] Rate: 89 P: IA: QRS: 0 QRSD: 95 T: 33 QT: 390 QTc: 475 Interpretive Statements Atrial fibrillation Low voltage, extremity and precordial leads Consider anterior infarct Compared to previous tracing, no significant change Electronically Signed On 09-10-2017 19:12:59 PDT by Jason Ortega MD CM:EKGRPT:ELECTROCARDIOGRAM REPORT 11 BARNEY AYALA DRAFT REPORT BARNEY BECK MD
--- NOTE | ~2017-09-09 | EKG ---
[place], [place] ELECTROCARDIOGRAM REPORT NAME: RANDY MCBRIDE UNIT #: [id number] ROOM: 419 DOCTOR: LUCY DRAFT REPORT BIRTHDATE: [birth year] [facility] Test Date: 2017-09-09 Test Time: 19:15:33 Pat Name: RANDY MCBRIDE Department: ER Room: 9 Gender: F Product Inspection Supervisor: KASSIDY : 1945 Requested By: BARNEY BECK Order Number: [id number] Reading MD: Jason Ortega MD Measurements Intervals [place] Rate: 89 P: MD: QRS: 20 QRSD: 92 T: 36 QT: 371 QTc: 452 Interpretive Statements Atrial fibrillation Low voltage, extremity and precordial leads Electronically Signed On 09-10-2017 19:03:36 PDT by Jason Ortega MD CM:EKGRPT:ELECTROCARDIOGRAM REPORT 14 02 BARNEY AYALA DRAFT REPORT BARNEY BECK MD
[~2017-09-09 18:38] MED LIST changes: +TOPROL XL50 M1 PO
[2017-09-09 18:41] VITALS: BP 137/57
[2017-09-09 19:37] LABS: BASO % 0.5 % (0.0-1.0); EOS # 0.1 10*3/uL (0.0-0.4); EOS % 2.4 % (1.0-4.0); HEMOGLOBIN 8.8 g/dl (12.0-16.0); LYMPH # 0.8 10*3/uL (1.3-4.4); LYMPH % 18.8 % (27.0-41.0); MEAN CELL VOLUME 95.1 fl (81.0-99.0); MEAN CORPUSCULAR HGB CONC 32.6 g/dl (33.0-37.0); MEAN PLATELET VOLUME 9.4 fl (9.6-12.3); MONO # 0.4 10*3/uL (0.1-1.0); MONO % 8.9 % (3.0-9.0); NEUT # 2.9 10*3/uL (2.3-7.9); NEUT % 68.7 % (47.0-73.0); PLATELET COUNT AUTOMATED 139 10*3/uL (130-400); RED BLOOD COUNT 2.84 10*6/uL (4.10-5.10); RED CELL DISTRI WIDTH 13.4 % (0-14.5); WHITE BLOOD COUNT 4.2 10*3/uL (4.8-10.8)
[2017-09-09 19:47] LABS: ACT PARTIAL THROMBO TIME 25.7 SECONDS (20.8-31.5); INTERNATIONAL NORM RATIO 1.1 (2.0-3.5)
[2017-09-09 19:47] LABS: BILIRUBIN 1+ (NEGATIVE); BLOOD 3+ (NEGATIVE); CLARITY SL CLOUDY (CLEAR); COLOR YELLOW (YELLOW); GLUCOSE NEGATIVE (NEGATIVE); KETONE TRACE (NEGATIVE); LEUKO ESTERASE 2+ (NEGATIVE); NITRITE NEGATIVE (NEGATIVE); UROBILINOGEN 0.2 E.U./dl (0.2-1.0)
[2017-09-09 19:55] LABS: ALBUMIN 2.6 gm/dl (3.1-4.5); ALKALINE PHOSPHATASE 98 U/L (45-117); BUN 13 mg/dl (7-24); CHLORIDE 97 mmol/L (98-107); CREATININE 5.91 mg/dL (0.55-1.02); POTASSIUM 3.1 mmol/L (3.5-5.1); SGOT/AST 20 IU/L (3-35); SGPT/ALT 16 U/L (12-78); SODIUM 136 mmol/L (136-145); TOTAL PROTEIN 6.7 gm/dL (6.4-8.2)
[2017-09-09 19:57] LABS: TROPONIN I < 0.015 ng/ml (<0.045)
[2017-09-09 20:01] LABS: BACTERIA 2+; RBC 41-50 rbc/hpf (0-2); WBC 16-20 wbc/hpf (0-5)
[2017-09-09 23:07] VITALS: BP 136/67
[2017-09-09 23:48] VITALS: BP 148/76
[2017-09-10] VITALS (7 sets, daily range): BP systolic 116–146; BP diastolic 44–69
[2017-09-10] MEDS ORDERED: METOPROLOL SUCC25 M2 PO (10:14)
[2017-09-10 14:17] LABS: ALBUMIN 2.6 gm/dl (3.1-4.5); CREATININE 6.67 mg/dL (0.55-1.02); PHOSPHOROUS 3.3 mg/dL (2.5-4.9); POTASSIUM 3.2 mmol/L (3.5-5.1)
[2017-09-10 14:25] LABS: BASO % 0.5 % (0.0-1.0); EOS # 0.2 10*3/uL (0.0-0.4); EOS % 2.8 % (1.0-4.0); HEMATOCRIT 29.7 % (37.0-47.0); HEMOGLOBIN 9.6 g/dl (12.0-16.0); LYMPH # 0.7 10*3/uL (1.3-4.4); LYMPH % 11.1 % (27.0-41.0); MEAN CELL VOLUME 96.1 fl (81.0-99.0); MEAN CORPUSCULAR HGB 31.1 pg (27.0-31.0); MEAN CORPUSCULAR HGB CONC 32.3 g/dl (33.0-37.0); MEAN PLATELET VOLUME 9.3 fl (9.6-12.3); MONO # 0.3 10*3/uL (0.1-1.0); MONO % 5.4 % (3.0-9.0); NEUT # 4.9 10*3/uL (2.3-7.9); NEUT % 79.5 % (47.0-73.0); PLATELET COUNT AUTOMATED 144 10*3/uL (130-400); RED BLOOD COUNT 3.09 10*6/uL (4.10-5.10); RED CELL DISTRI WIDTH 13.8 % (0-14.5); WHITE BLOOD COUNT 6.2 10*3/uL (4.8-10.8)
[2017-09-11] VITALS: BP 134/68
[2017-09-11 06:10] LABS: BASO % 0.4 % (0.0-1.0); EOS # 0.2 10*3/uL (0.0-0.4); EOS % 4.9 % (1.0-4.0); HEMATOCRIT 24.7 % (37.0-47.0); HEMOGLOBIN 7.9 g/dl (12.0-16.0); LYMPH # 0.9 10*3/uL (1.3-4.4); LYMPH % 18.2 % (27.0-41.0); MEAN CELL VOLUME 97.2 fl (81.0-99.0); MEAN CORPUSCULAR HGB 31.1 pg (27.0-31.0); MONO # 0.4 10*3/uL (0.1-1.0); MONO % 7.7 % (3.0-9.0); NEUT # 3.2 10*3/uL (2.3-7.9); NEUT % 67.9 % (47.0-73.0); PLATELET COUNT AUTOMATED 128 10*3/uL (130-400); RED BLOOD COUNT 2.54 10*6/uL (4.10-5.10); RED CELL DISTRI WIDTH 13.7 % (0-14.5); WHITE BLOOD COUNT 4.7 10*3/uL (4.8-10.8)
[2017-09-11 06:41] LABS: ALBUMIN 2.2 gm/dl (3.1-4.5); CREATININE 7.28 mg/dL (0.55-1.02); PHOSPHOROUS 3.6 mg/dL (2.5-4.9); POTASSIUM 3.1 mmol/L (3.5-5.1)
[2017-09-11 08:00] VITALS: BP 110/50
[2017-09-11 20:00] VITALS: BP 102/72
[2017-09-12] VITALS: BP 105/51
[2017-09-12 07:02] LABS: BASO % 0.5 % (0.0-1.0); EOS # 0.2 10*3/uL (0.0-0.4); EOS % 6.6 % (1.0-4.0); HEMATOCRIT 25.1 % (37.0-47.0); HEMOGLOBIN 7.9 g/dl (12.0-16.0); LYMPH # 0.9 10*3/uL (1.3-4.4); LYMPH % 25.5 % (27.0-41.0); MEAN CELL VOLUME 99.6 fl (81.0-99.0); MEAN CORPUSCULAR HGB 31.3 pg (27.0-31.0); MEAN CORPUSCULAR HGB CONC 31.5 g/dl (33.0-37.0); MONO # 0.4 10*3/uL (0.1-1.0); NEUT % 54.8 % (47.0-73.0); PLATELET COUNT AUTOMATED 106 10*3/uL (130-400); RED BLOOD COUNT 2.52 10*6/uL (4.10-5.10); WHITE BLOOD COUNT 3.7 10*3/uL (4.8-10.8)
[2017-09-12 07:39] LABS: ALBUMIN 2.2 gm/dl (3.1-4.5); CREATININE 4.72 mg/dL (0.55-1.02); POTASSIUM 3.9 mmol/L (3.5-5.1)
[2017-09-12 07:40] LABS: PHOSPHOROUS 2.6 mg/dL (2.5-4.9)
[2017-09-12 08:00] VITALS: BP 108/58
[2017-09-12 16:00] VITALS: BP 110/65
[2017-09-12 20:00] VITALS: BP 93/42
[2017-09-13] VITALS: BP 146/83
[2017-09-13 06:36] LABS: BASO % 0.5 % (0.0-1.0); EOS # 0.2 10*3/uL (0.0-0.4); EOS % 5.5 % (1.0-4.0); HEMATOCRIT 25.5 % (37.0-47.0); HEMOGLOBIN 7.9 g/dl (12.0-16.0); LYMPH % 27.4 % (27.0-41.0); MONO # 0.3 10*3/uL (0.1-1.0); MONO % 7.9 % (3.0-9.0); NEUT # 2.2 10*3/uL (2.3-7.9); NEUT % 56.6 % (47.0-73.0); PLATELET COUNT AUTOMATED 102 10*3/uL (130-400); RED BLOOD COUNT 2.55 10*6/uL (4.10-5.10); RED CELL DISTRI WIDTH 14.2 % (0-14.5); WHITE BLOOD COUNT 3.8 10*3/uL (4.8-10.8)
[2017-09-13 06:37] LABS: ALBUMIN 2.2 gm/dl (3.1-4.5); CREATININE 4.09 mg/dL (0.55-1.02); PHOSPHOROUS 2.4 mg/dL (2.5-4.9); POTASSIUM 4.7 mmol/L (3.5-5.1)
[2017-09-13 06:40] LABS: VANCOMYCIN TROUGH 8.8 ug/mL (10-20)
[2017-09-13 08:00] VITALS: BP 108/40
[2017-09-13 12:00] VITALS: BP 107/60
[2017-09-13] MEDS ORDERED: CIPRO500 MG PO (12:51)
[2017-09-13] MEDS ORDERED: FLAGYL500 MG PO (12:51)
[2017-09-27] MEDS ORDERED: LEVOFLOXACIN500 MG PO (15:08)
== END 2017-09-13 13:20 | disposition home health service (06) | DRG 871 ==
LOC: ED 18:38 → EDHOLD 22:47 → 4E 22:47
PROVIDERS: Emergency Medicine; Internal Medicine; Internal Medicine Nephrology
DX: A41.9 Sepsis, unspecified organism (principal); N18.6 End stage renal disease; E43 Unspecified severe protein-calorie malnutrition; I13.2 Hypertensive heart and chronic kidney disease with heart failure and with stage 5 chronic kidney disease, or end stage renal disease; I48.91 Unspecified atrial fibrillation; E11.22 Type 2 diabetes mellitus with diabetic chronic kidney disease; N39.0 Urinary tract infection, site not specified; K52.9 Noninfective gastroenteritis and colitis, unspecified; D64.9 Anemia, unspecified; E87.6 Hypokalemia; K29.70 Gastritis, unspecified, without bleeding; E05.90 Thyrotoxicosis, unspecified without thyrotoxic crisis or storm; M19.90 Unspecified osteoarthritis, unspecified site; E78.5 Hyperlipidemia, unspecified; K21.9 Gastro-esophageal reflux disease without esophagitis; E03.9 Hypothyroidism, unspecified; M81.0 Age-related osteoporosis without current pathological fracture; J45.909 Unspecified asthma, uncomplicated; R31.9 Hematuria, unspecified; K57.90 Diverticulosis of intestine, part unspecified, without perforation or abscess without bleeding; I50.9 Heart failure, unspecified; D72.810 Lymphocytopenia; E55.9 Vitamin D deficiency, unspecified; E66.3 Overweight; Z83.6 Family history of other diseases of the respiratory system; Z88.4 Allergy status to anesthetic agent; Z98.42 Cataract extraction status, left eye; Z90.710 Acquired absence of both cervix and uterus; Z98.41 Cataract extraction status, right eye; Z90.49 Acquired absence of other specified parts of digestive tract; Z82.49 Family history of ischemic heart disease and other diseases of the circulatory system; Z83.3 Family history of diabetes mellitus; Z80.0 Family history of malignant neoplasm of digestive organs; Z79.4 Long term (current) use of insulin; Z99.2 Dependence on renal dialysis; Z79.899 Other long term (current) drug therapy; Z68.28 Body mass index [BMI] 28.0-28.9, adult

== ENCOUNTER 2017-12-02 22:29 | Inpatient (IN) | payer MEDICARE, MEDICAID ==
[~2017-12-02] VITALS: Ht 175.3 cm; Wt 82.3 kg
--- NOTE | ~2017-12-02 | CON ---
[place], [place] REPORT OF CONSULTATION NAME: RANDY MCBRIDE UNIT #: [id number] ROOM: 518 DOCTOR: RAMAN SALOMON MD BIRTHDATE: [birth year] DOS: 12/03/2017 HISTORY OF PRESENT ILLNESS: This is a 72-year-old -[place] woman who is a patient of Dr. Jimbo Singh. She has had atrial fibrillation and also supraventricular tachycardia in the past. She was here in September and at that time, she had a regular narrow complex tachycardia at 169 beats per minute. She also has essential hypertension and has end-stage renal disease and dialyzes on a regular basis. She also has had heart failure/volume overload, type 2 diabetes mellitus, GERD and had pneumonia in September. Also has had urinary tract infections. She does not smoke nor does she drink alcoholic beverages. She was admitted to the hospital because of a strange feeling in the throat. Her pills got stuck and would not go down and a couple of hours later, she came to the Emergency Department because of burning sensation in the throat. She had no breathing difficulty, but has some swelling in the legs, but she has been dialyzing regularly. No palpitations or loss of consciousness. She had no fever or chills. HOME MEDICATIONS: Include albuterol HFA, Eliquis 2.5 mg b.i.d., gabapentin 100 mg b.i.d., levothyroxine 125 mcg daily, metoprolol succinate 50 mg daily, Singulair 10 mg daily, omeprazole 20 mg daily, Renvela 800 mg t.i.d., trazodone 50 mg p.r.n. for sleep and insulin. She also takes DuoNeb aerosol treatments. PHYSICAL EXAMINATION: GENERAL: Reveals a patient who is pleasant, alert. She is very hard of hearing. She is comfortable. She looks pale. No thyromegaly or finger clubbing. She is not cyanotic or jaundiced. VITAL SIGNS: Pulse is 88, iirregular. Blood pressure 134/77. NECK: JVP is normal. AJR appears to be negative. No bruit in the neck. HEART: There is no cardiomegaly, no murmurs are present. EXTREMITIES: She has 1+ pretibial and bilateral pedal edema. Pedal pulses are little difficult to appreciate. RESPIRATORY: She was not tachypneic. Percussion note was normal. Auscultation revealed much more reduced breath sounds on the left side with adventitious sounds than the right. ABDOMEN: Bowel sounds were normal, somewhat hyperresonant with no guarding or rigidity. DIAGNOSTIC STUDIES: An ECG showed atrial fibrillation with rapid rate. Monitor now shows better rate. IMPRESSION: 1. This patient with chronic atrial fibrillation as the rate there was little fast that has been controlled adequately now. 2. Dysphagia. Pills got stuck in the throat and EGD is being considered. From cardiac standpoint, Eliquis is going to be discontinued a couple of days prior to the procedure and this was discussed with the staff. 3. End-stage renal disease. She appears euvolemic at this time and I believe her dry weight is being reduced by 1-2 kilos. [place], [place] REPORT OF CONSULTATION NAME: RANDY MCBRIDE UNIT #: [id number] ROOM: 518 DOCTOR: RAMAN SALOMON MD BIRTHDATE: [birth year] No new recommendations are offered. I thank you on behalf of Dr. Singh for this consult. RAMAN SALOMON MD CM:CONSTR:REPORT OF CONSULTATION 1715 12/17/17 0730 interface
--- NOTE | ~2017-12-02 | O ---
[place], [place] OPERATIVE NOTE NAME: RANDY MCBRIDE UNIT #: [id number] ROOM: 518 DOCTOR: TYRESE ALFONSO MD BIRTHDATE: [birth year] DOS: 12/05/2017 GASTROENDOSCOPIC REPORT INDICATIONS: This is a 72-year-old patient who has presented with chief complaint of epigastric distress, suspected esophageal pathology with dysphagia, difficulty with swallowing pills. PROCEDURE: Today's procedure part of investigation is panendoscopy plus biopsy and esophageal dilation. PREMEDICATION: Propofol. SCOPE: Olympus forward-viewing gastroscope Q10 video. REPORT: After putting the patient in left lateral position and application of lubricant to the scope, the scope was introduced. Thereafter, under direct visualization, advanced through the length of esophagus without difficulty. Esophagus, cervical, thoracic distal carefully examining. Small hiatal hernia was noticed. Gastric pouch was entered. Gastritis seen. Antral biopsy obtained. Duodenal bulb, second and third part within normal limits. Scope was withdrawn back to the proximal stomach and a balloon size 18 was introduced in the esophagus and entire length of the esophagus was switched with size 18. The patient extubated, tolerated the procedure well. IMPRESSION: Benign esophageal stricture, status post balloon dilation, small hiatal hernia, gastritis, status post biopsy. PLAN AND DISCUSSION: Resumption of diet. ACTIVITY: Ad lyla. FOLLOWUP: Followup p.r.n. [place], [place] OPERATIVE NOTE NAME: RANDY MCBRIDE UNIT #: [id number] ROOM: 518 DOCTOR: TYRESE ALFONSO MD BIRTHDATE: [birth year] TYRESE ALFONSO MD CM:OPRECORD:OPERATIVE NOTE 1503 42 TYRESE ALFONSO MD 12/05/17 1644 interface
--- NOTE | ~2017-12-02 | CON ---
[place], [place] REPORT OF CONSULTATION NAME: RANDY MCBRIDE UNIT #: [id number] ROOM: 518 DOCTOR: TYRESE ALFONSO MD BIRTHDATE: [birth year] DOS: 12/05/2017 HISTORY OF PRESENT ILLNESS: A 72-year-old patient who has presented with end-stage renal disease, dialysis dependency. The patient has had difficulty swallowing her pill and has been concerned about possible foreign body in the esophagus or stricture. PAST MEDICAL HISTORY: Chemical imbalance, atrial fibrillation, congestive heart failure, degenerative joint disease, diabetes mellitus, and chronic renal failure, dialysis dependency. PAST SURGICAL HISTORY: Cardiac catheterization, cataract extraction, hysterectomy, and cholecystectomy. SOCIAL HISTORY: Nonsmoker, nonalcohol consumer. FAMILY HISTORY: Noncontributory. ALLERGIES: No known medication. MEDICATIONS: List was reviewed. REVIEW OF SYSTEMS: HEENT: Denies double vision, blurred vision. RESPIRATORY: Denies acute shortness of breath. CARDIOVASCULAR: Denies acute chest pain. DIGESTIVE SYSTEM: Dysphagia to solid food and pill dysphagia. PHYSICAL EXAMINATION: VITAL SIGNS: Stable. HEENT: Head normocephalic, nontraumatic. Mouth and buccal mucosa edentulous. NECK: Supple, no thyromegaly, no cervical lymphadenopathy. CHEST: Symmetric anatomy. Few scattered rhonchi. HEART: Normal sinus rhythm, no gallop, no murmur. ABDOMEN: Soft. No hepato-organomegaly. Bowel sounds present. No pulsatile mass. EXTREMITIES: No cyanosis, no pedal edema. NEUROLOGICAL: Alert, oriented to time, place, person. IMPRESSION: Pill dysphagia, ruling out esophageal stricture, esophageal carcinoma, and esophageal ulceration. PLAN AND DISCUSSION: We are going to proceed with endoscopy of upper tract. Meanwhile, other adjunctive diagnoses as outlined. Past medical, surgical history, elevated creatinine, anemia, and CBC with differential, H and H 10 and 32. Basic metabolic panel, glucose of 38, hypoglycemia, electrolyte imbalance, all has been recognized. [place], [place] REPORT OF CONSULTATION NAME: RANDY MCBRIDE UNIT #: [id number] ROOM: 518 DOCTOR: TYRESE ALFONSO MD BIRTHDATE: [birth year] TYRESE ALFONSO MD CM:CONSTR:REPORT OF CONSULTATION 1503 12/05/17 1650 interface
--- NOTE | ~2017-12-02 | EKG ---
[place], [place] ELECTROCARDIOGRAM REPORT NAME: RANDY MCBRIDE UNIT #: [id number] ROOM: [facility] DOCTOR: LUCY DRAFT REPORT BIRTHDATE: [birth year] [facility] Test Date: 2017-12-02 Test Time: 22:53:57 Pat Name: RANDY MCBRIDE Department: Room: [facility] Gender: F Criminal Justice Social Worker: Jacinto Omalley : 1945 Requested By: NAT GREENE Order Number: [id number] Reading MD: Jimbo Singh MD Measurements Intervals [place] Rate: 138 P: ME: QRS: -26 QRSD: 83 T: 64 QT: 338 QTc: 512 Interpretive Statements Atrial fibrillation Borderline left axis deviation Low voltage, extremity leads Consider anterior infarct Prolonged QT interval Baseline wander in lead(s) V2 Compared to ECG 09/23/2017 00:33:17 Prolonged QT interval now present Supraventricular tachycardia no longer present ST (T wave) deviation no longer present Myocardial infarct finding still present Electronically Signed On 12-03-2017 8:43:08 PDT by Jimbo Singh MD CM:EKGRPT:ELECTROCARDIOGRAM REPORT 2253 0843 NAT ALVAREZ DRAFT REPORT NAT GREENE DO
--- NOTE | ~2017-12-02 | PR ---
[place], [place] PROGRESS NOTE NAME: RANDY MCBRIDE UNIT #: [id number] ROOM: [facility] DOCTOR: SLOAN GATICA MD BIRTHDATE: [birth year] DOS: 12/04/2017 SUBJECTIVE: The patient examined in the Intensive Care Unit. The patient was seen on my behalf by Dr. Li yesterday. The patient is very well known to me with a history of chronic renal failure with dialysis dependent and chronic atrial fibrillation. Yesterday her heart rate was slightly fast and she was given IV and Cardizem in the low pressure. Today, the heart rate is much better. She is comfortably sleeping. She is in atrial fibrillation, rate is 75. Blood pressure is 102/49. She denies any chest discomfort, shortness of breath or palpitation. Did have some problems with dysphagia. The patient is being considered for an EGD. REVIEW OF SYSTEMS: Denies any chest discomfort, shortness of breath. Does have dysphagia, no neurological issues. No psychological issues. OBJECTIVE: VITAL SIGNS: Blood pressure today is 118/64, heart rate is controlled 75. NECK: Supple, no JVD. LUNGS: Diminished breath sounds. HEART: Sounds are irregularly irregular. NEUROLOGIC: Stable. LABORATORY DATA: Hemoglobin 10.4, hematocrit 32.9. Creatinine is 4.2. TSH is 3.4. Troponins have been negative. IMPRESSION: The patient with chronic atrial fibrillation, slightly rapid ventricular response, chronic renal failure and dysphagia. RECOMMENDATIONS: GI evaluation under control. Agree with continuing the beta blockers and adjust the dosage accordingly. Monitor the heart rate closely. Increase activity. Agree to hold the Eliquis for a couple of days until the EGD is done and resume it and we will follow up. SLOAN GATICA MD CM:PNVENKAT 4 SLOAN GATICA MD 12/04/1745 interface
[~2017-12-02 22:29] MED LIST changes: +FLAGYL500 MG PO
[2017-12-02 22:31] VITALS: BP 140/93
[2017-12-02 22:55] LABS: BASO % 0.4 % (0.0-1.0); EOS % 0.5 % (1.0-4.0); HEMATOCRIT 34.5 % (37.0-47.0); HEMOGLOBIN 11.1 g/dl (12.0-16.0); LYMPH % 17.9 % (27.0-41.0); MEAN CELL VOLUME 89.1 fl (81.0-99.0); MEAN CORPUSCULAR HGB 28.7 pg (27.0-31.0); MEAN CORPUSCULAR HGB CONC 32.2 g/dl (33.0-37.0); MEAN PLATELET VOLUME 10.4 fl (9.6-12.3); MONO # 0.5 10*3/uL (0.1-1.0); MONO % 9.6 % (3.0-9.0); NEUT # 3.9 10*3/uL (2.3-7.9); NEUT % 71.1 % (47.0-73.0); PLATELET COUNT AUTOMATED 135 10*3/uL (130-400); RED BLOOD COUNT 3.87 10*6/uL (4.10-5.10); RED CELL DISTRI WIDTH 15.9 % (0-14.5); WHITE BLOOD COUNT 5.5 10*3/uL (4.8-10.8)
[2017-12-02 23:06] LABS: ACT PARTIAL THROMBO TIME 31.2 SECONDS (20.8-31.5); INTERNATIONAL NORM RATIO 1.2 (2.0-3.5)
[2017-12-02 23:12] LABS: ALBUMIN 2.5 gm/dl (3.1-4.5); ALKALINE PHOSPHATASE 106 U/L (45-117); BUN 20 mg/dl (7-24); CHLORIDE 93 mmol/L (98-107); CREATININE 5.39 mg/dL (0.55-1.02); POTASSIUM 3.9 mmol/L (3.5-5.1); SGOT/AST 38 IU/L (3-35); SGPT/ALT 24 U/L (12-78); SODIUM 132 mmol/L (136-145); TOTAL PROTEIN 7.4 gm/dL (6.4-8.2)
[2017-12-02 23:13] LABS: TROPONIN I < 0.015 ng/ml (<0.045)
[2017-12-03] VITALS (7 sets, daily range): BP systolic 112–140; BP diastolic 64–78
[2017-12-03 02:44] LABS: CKMB < 1.0 ng/ml (0.5-3.6); CPK 31 U/L (26-192)
[2017-12-03 02:58] LABS: TROPONIN I < 0.015 ng/ml (<0.045)
[2017-12-03 05:58] LABS: CKMB < 1.0 ng/ml (0.5-3.6); CPK 32 U/L (26-192)
[2017-12-03 05:59] LABS: TROPONIN I < 0.015 ng/ml (<0.045)
[2017-12-03] MEDS ORDERED: OMEPRAZOLE D/R20 MG PO (08:36)
[2017-12-03 10:25] LABS: CKMB < 1.0 ng/ml (0.5-3.6)
[2017-12-03 10:27] LABS: CPK 17 U/L (26-192); TROPONIN I < 0.015 ng/ml (<0.045)
[2017-12-04] VITALS: BP 111/54
[2017-12-04 04:00] VITALS: BP 108/49
[2017-12-04 05:51] LABS: CREATININE 4.2 mg/dL (0.55-1.02); FREE T4 1.9 ng/dl (0.76-1.46); POTASSIUM 3.9 mmol/L (3.5-5.1)
[2017-12-04 05:53] LABS: BASO % 0.8 % (0.0-1.0); EOS # 0.1 10*3/uL (0.0-0.4); EOS % 0.9 % (1.0-4.0); HEMATOCRIT 32.9 % (37.0-47.0); HEMOGLOBIN 10.4 g/dl (12.0-16.0); LYMPH # 1.5 10*3/uL (1.3-4.4); LYMPH % 27.7 % (27.0-41.0); MEAN CELL VOLUME 91.1 fl (81.0-99.0); MEAN CORPUSCULAR HGB 28.8 pg (27.0-31.0); MEAN CORPUSCULAR HGB CONC 31.6 g/dl (33.0-37.0); MEAN PLATELET VOLUME 10.9 fl (9.6-12.3); MONO # 0.8 10*3/uL (0.1-1.0); NEUT # 2.9 10*3/uL (2.3-7.9); PLATELET COUNT AUTOMATED 95 10*3/uL (130-400); RED BLOOD COUNT 3.61 10*6/uL (4.10-5.10); RED CELL DISTRI WIDTH 15.8 % (0-14.5); WHITE BLOOD COUNT 5.3 10*3/uL (4.8-10.8)
[2017-12-04 05:58] LABS: THYROID STIM HORMONE (HS) 3.47 uIU/ml (0.358-4.75)
[2017-12-04 08:00] VITALS: BP 111/69
[2017-12-04 11:52] VITALS: BP 140/74
[2017-12-04 16:00] VITALS: BP 125/60
[2017-12-04 20:00] VITALS: BP 115/53
[2017-12-05] VITALS (9 sets, daily range): BP systolic 106–127; BP diastolic 42–79
[2017-12-05 10:30] LABS: BILIRUBIN NEGATIVE (NEGATIVE); BLOOD NEGATIVE (NEGATIVE); CLARITY CLOUDY (CLEAR); GLUCOSE NEGATIVE (NEGATIVE); KETONE NEGATIVE (NEGATIVE); LEUKO ESTERASE TRACE (NEGATIVE); NITRITE NEGATIVE (NEGATIVE); PH >= 9.0 (5.0-9.0); UROBILINOGEN 0.2 E.U./dl (0.2-1.0)
[2017-12-05 10:50] LABS: COLOR BROWN (YELLOW)
[2017-12-05 11:05] LABS: BACTERIA 3+; CALCIUM OXALATE CRYSTALS 1+; EPITHELIAL CELLS TNTC; YEAST 3+
[2017-12-06] VITALS: BP 132/52
[2017-12-06 08:00] VITALS: BP 130/70
[2018-01-12] MEDS ORDERED: ZOFRAN4 MG PO (11:18)
[2018-01-12] MEDS ORDERED: METOPROLOL SUCC50 M1 PO (11:19)
[2018-01-12] MEDS ORDERED: RENAL CAPS SOFTG1 MG PO (11:20)
[2018-01-12] MEDS ORDERED: ELIQUIS2.5 M1 PO (11:28)
[2018-01-12] MEDS ORDERED: MAGNESIUM400 M1 PO (11:29)
[2018-01-17] MEDS ORDERED: ERTAPENEM1 GM IM (14:15)
[2018-01-17] MEDS ORDERED: ERTAPENEM1 GM IV (17:02)
== END 2017-12-06 13:32 | disposition home or self-care (01) | DRG 391 ==
LOC: ED 22:29 → ICCU 12-03 00:18 → EDHOLD 12-03 00:18 → 5E 12-03 00:18 → ICCU 12-03 00:32 → 5E 12-04 13:45
PROVIDERS: Internal Medicine; Student in an Organized Health Care Education/Training Program
DX: K22.2 Esophageal obstruction (principal); N17.0 Acute kidney failure with tubular necrosis; N18.6 End stage renal disease; E87.1 Hypo-osmolality and hyponatremia; I13.2 Hypertensive heart and chronic kidney disease with heart failure and with stage 5 chronic kidney disease, or end stage renal disease; E88.9 Metabolic disorder, unspecified; I48.2 Chronic atrial fibrillation; K21.0 Gastro-esophageal reflux disease with esophagitis; E87.8 Other disorders of electrolyte and fluid balance, not elsewhere classified; K44.9 Diaphragmatic hernia without obstruction or gangrene; K29.70 Gastritis, unspecified, without bleeding; D64.9 Anemia, unspecified; R13.10 Dysphagia, unspecified; E11.22 Type 2 diabetes mellitus with diabetic chronic kidney disease; I50.9 Heart failure, unspecified; E78.5 Hyperlipidemia, unspecified; Z90.710 Acquired absence of both cervix and uterus; Z98.49 Cataract extraction status, unspecified eye; Z90.49 Acquired absence of other specified parts of digestive tract; Z80.1 Family history of malignant neoplasm of trachea, bronchus and lung; Z82.49 Family history of ischemic heart disease and other diseases of the circulatory system; Z79.51 Long term (current) use of inhaled steroids; Z79.4 Long term (current) use of insulin; Z79.899 Other long term (current) drug therapy; Z68.26 Body mass index [BMI] 26.0-26.9, adult

== ENCOUNTER 2019-02-19 16:27 | Emergency (ER) | payer OTHER ==
[~2019-02-19] VITALS: Ht 172.7 cm; Wt 77.1 kg
[~2019-02-19 16:27] MED LIST changes: +AMIODARONE HYD200 MG PO; +ELIQUIS2.5 M1 PO; +ERTAPENEM1 GM IM; +ERTAPENEM1 GM IV; +LEVOTHYROXINE150 MCG PO; +MAGNESIUM400 M1 PO; +METOPROLOL SUCC50 M1 PO; +OMNICEF300 MG PO; +RENAL CAPS SOFTG1 MG PO; +VENTOLIN 02.5 MG/3 M INH
[2019-02-19 16:55] LABS: BASO % 0.5 % (0.0-1.0); EOS % 0.2 % (1.0-4.0); HEMATOCRIT 33.6 % (37.0-47.0); HEMOGLOBIN 10.7 g/dl (12.0-16.0); LYMPH # 0.5 10*3/uL (1.3-4.4); LYMPH % 7.5 % (27.0-41.0); MEAN CELL VOLUME 97.7 fl (81.0-99.0); MEAN CORPUSCULAR HGB 31.1 pg (27.0-31.0); MEAN CORPUSCULAR HGB CONC 31.8 g/dl (33.0-37.0); MEAN PLATELET VOLUME 9.6 fl (9.6-12.3); MONO # 0.4 10*3/uL (0.1-1.0); MONO % 7.1 % (3.0-9.0); NEUT # 5.3 10*3/uL (2.3-7.9); NEUT % 84.2 % (47.0-73.0); PLATELET COUNT AUTOMATED 85 10*3/uL (130-400); RED BLOOD COUNT 3.44 10*6/uL (4.10-5.10); RED CELL DISTRI WIDTH 15.9 % (0-14.5); WHITE BLOOD COUNT 6.2 10*3/uL (4.8-10.8)
[2019-02-19 17:05] LABS: ACT PARTIAL THROMBO TIME 28.5 SECONDS (20.0-32.1); INTERNATIONAL NORM RATIO 1.2 (2.0-3.5)
[2019-02-19 17:12] LABS: ALBUMIN 3.4 gm/dl (3.1-4.5); ALKALINE PHOSPHATASE 164 U/L (45-117); BUN 17 mg/dl (7-24); CHLORIDE 96 mmol/L (98-107); CREATININE 3.41 mg/dL (0.55-1.02); POTASSIUM 4.1 mmol/L (3.5-5.1); SGOT/AST 33 IU/L (3-35); SGPT/ALT 24 U/L (12-78); SODIUM 137 mmol/L (136-145); TOTAL PROTEIN 8.3 gm/dL (6.4-8.2)
[2019-02-19 17:16] LABS: TROPONIN I < 0.015 ng/ml (<0.045)
[2019-02-19 18:36] LABS: BILIRUBIN NEGATIVE (NEGATIVE); BLOOD TRACE-INTACT (NEGATIVE); CLARITY CLOUDY (CLEAR); COLOR YELLOW (YELLOW); GLUCOSE NEGATIVE (NEGATIVE); KETONE NEGATIVE (NEGATIVE); LEUKO ESTERASE 1+ (NEGATIVE); NITRITE NEGATIVE (NEGATIVE); PH 8.5 (5.0-9.0); UROBILINOGEN 0.2 E.U./dl (0.2-1.0)
[2019-02-19 18:43] LABS: BACTERIA 3+; RBC 0-2 rbc/hpf (0-2); WBC 51-100 wbc/hpf (0-5)
[2019-02-19] MEDS ORDERED: SEPTDS PO (18:52)
== END 2019-02-19 19:15 | disposition home or self-care (01) ==
LOC: ED 16:27
PROVIDERS: Emergency Medicine
DX: N39.0 Urinary tract infection, site not specified (principal); R41.82 Altered mental status, unspecified; R05 Cough; R11.10 Vomiting, unspecified; R06.02 Shortness of breath; E78.00 Pure hypercholesterolemia, unspecified; E03.9 Hypothyroidism, unspecified; E11.9 Type 2 diabetes mellitus without complications; K21.9 Gastro-esophageal reflux disease without esophagitis; E78.5 Hyperlipidemia, unspecified; M81.0 Age-related osteoporosis without current pathological fracture; I13.2 Hypertensive heart and chronic kidney disease with heart failure and with stage 5 chronic kidney disease, or end stage renal disease; E11.22 Type 2 diabetes mellitus with diabetic chronic kidney disease; N18.6 End stage renal disease; M19.90 Unspecified osteoarthritis, unspecified site; Z79.899 Other long term (current) drug therapy; Z88.4 Allergy status to anesthetic agent; Z79.4 Long term (current) use of insulin

== ENCOUNTER → 2019-04-22 | Outpatient (CLI) | payer OTHER ==
[~2019-04-22] MED LIST changes: +SEPTDS PO
== END | disposition home or self-care (01) ==
LOC: MAMMO 13:05
DX: N63.23 Unspecified lump in the left breast, lower outer quadrant (principal)